=== PATIENT | female | born 1945 | race Caucasian/White ===

== ENCOUNTER 2016-07-25 09:56 | Outpatient (CLI) | payer MEDICARE | END 2016-07-25 09:57 | disposition home or self-care (01) | DX: R06.09 Other forms of dyspnea (principal) ==

== ENCOUNTER 2016-10-04 09:45 | Outpatient (CLI) | payer MEDICARE ==
[2016-10-04 17:50] LABS: BILIRUBIN,URINE NEGATIVE (NEGATIVE); PH,URINE 5.5 PH (5.0-7.5)
[2016-10-04 18:47] LABS: UR CULTURE IF IND NOT INDICATED
== END 2016-10-04 09:46 | disposition home or self-care (01) ==
LOC: LAB.R 09:45
PROVIDERS: ATTEND Physician Assistant Medical
DX: R35.0 Frequency of micturition (principal)
CPT/HCPCS: 81001; 87086

== ENCOUNTER 2017-03-19 13:48 | Outpatient (CLI) | payer MEDICARE ==
--- NOTE | 2017-03-19 18:38 | XRAY Report ---
TWO VIEW RIGHT RIBS: 03/19/2017 CLINICAL INDICATION: Fall, pain. Frontal and oblique views of the right ribs were obtained, with a marker at the site of maximal tende rness. There is no evidence of a displaced rib fracture. No pneumothorax is seen. IMPRESSION: NO EVIDENCE OF A DISPLACED RIGHT RIB FRACTURE. JOB #: [id number] EXT JOB #:[id number]
--- NOTE | 2017-03-19 18:40 | XRAY Report ---
THREE VIEW THORACIC SPINE: 03/19/2017 CLINICAL INDICATION: Right back pain, history of fall. AP, lateral, swimmer's views of the thoracic spine demonstrate moderate degenerative disk disease. T here is no evidence of compression fracture. No paraspinal hematoma is seen. IMPRESSION: DEGENERATIVE CHANGES. NO EVIDENCE OF FRACTURE. JOB #: [id number] EXT JOB #:[id number]
== END 2017-03-19 13:49 | disposition home or self-care (01) ==
LOC: DI 13:48
PROVIDERS: ATTEND Physician Assistant Medical
DX: R07.81 Pleurodynia (principal); M51.34 Other intervertebral disc degeneration, thoracic region
CPT/HCPCS: 72072

== ENCOUNTER 2017-07-15 09:10 | Outpatient (CLI) | payer MEDICARE ==
[2017-07-15 17:51] LABS: BASOPHILS # (AUTO) 0.1 10^3/uL (0.0-0.1); BASOPHILS % (AUTO) 0.6 %; EOSINOPHILS # (AUTO) 0.4 10^3/uL (0.0-0.7); HGB - HEMOGLOBIN 13.9 g/dL (12.0-16.0); LYMPHOCYTES # (AUTO) 2.6 10^3/uL (1.5-3.5); LYMPHOCYTES % (AUTO) 25.6 %; MEAN CORPUSCULAR HEMOGLOBIN 28.3 pg (27.0-31.0); MEAN CORPUSCULAR HGB CONC 32.2 g/dL (32.0-36.0); MEAN CORPUSCULAR VOLUME 87.7 fL (81.0-99.0); MEAN PLATELET VOLUME 9.7 fL (7.9-10.8); MONOCYTES # (AUTO) 0.6 10^3/uL (0.0-1.0); NEUTROPHILS # (AUTO) 6.4 10^3/uL (1.5-6.6); NEUTROPHILS % (AUTO) 63.8 %; PLT - PLATELET COUNT 235 10^3/uL (130-450); RED BLOOD COUNT 4.91 10^6/uL (4.20-5.40); RED CELL DISTRIBUTION WIDTH 14.8 % (12.0-15.0); WHITE BLOOD COUNT 10.1 x10^3/uL (4.8-10.8)
[2017-07-15 17:58] LABS: HB2 TOTAL 15.4 g/dL; HEMOGLOBIN A1C 0.8 g/dL; HEMOGLOBIN A1C % 6.9 % (4.6-6.2)
[2017-07-15 18:04] LABS: ALBUMIN 4.2 g/dL (3.2-5.5); ALBUMIN/GLOBULIN RATIO 1.2 (1.0-2.2); ALKALINE PHOSPHATASE 56 IU/L (42-121); ALT ALANINE AMINOTRANSFERASE 22 IU/L (10-60); AST ASPARTATE AMINOTRANSFERASE 25 IU/L (10-42); BILIRUBIN,TOTAL 0.4 mg/dL (0.2-1.0); BUN - BLOOD UREA NITROGEN 19 mg/dL (6-20); CALCIUM 9.1 mg/dL (8.5-10.3); CARBON DIOXIDE - CO2 29 mmol/L (21-32); CHLORIDE 98 mmol/L (101-111); CHOL/HDL RATIO 4.9 (<4.4); CHOLESTEROL 137 mg/dL; CREATININE 0.8 mg/dL (0.4-1.0); GFR - MDRD 71 (>89); GLUCOSE 136 mg/dL (70-100); HDL CHOLESTEROL 28 mg/dL; LDL CHOLESTEROL,CALCULATED 68 mg/dL; LDL/HDL RATIO 2.4 (<4.4); SODIUM 135 mmol/L (135-145); TOTAL PROTEIN 7.8 g/dL (6.7-8.2); VLDL CHOLESTEROL 41 mg/dL
== END 2017-07-15 09:11 | disposition home or self-care (01) ==
LOC: LAB.F 09:10
PROVIDERS: ATTEND Physician Assistant Medical
DX: I10 Essential (primary) hypertension (principal); E11.9 Type 2 diabetes mellitus without complications; I25.10 Atherosclerotic heart disease of native coronary artery without angina pectoris
CPT/HCPCS: 36415; 80053; 80061; 82043; 83036; 83721; 85025

== ENCOUNTER 2017-11-27 10:58 | Outpatient (CLI) | payer MEDICARE ==
[2017-11-27 18:03] LABS: HB2 TOTAL 14.6 g/dL; HEMOGLOBIN A1C 0.63 g/dL; HEMOGLOBIN A1C % 6.1 % (4.6-6.2)
== END 2017-11-27 10:59 | disposition home or self-care (01) ==
LOC: LAB.F 10:58
PROVIDERS: ATTEND Physician Assistant Medical
DX: E11.9 Type 2 diabetes mellitus without complications (principal)
CPT/HCPCS: 36415; 83036

== ENCOUNTER 2017-12-29 11:28 | Outpatient (CLI) | payer MEDICARE ==
[2017-12-29 17:44] LABS: BASOPHILS # (AUTO) 0.1 10^3/uL (0.0-0.1); BASOPHILS % (AUTO) 0.6 %; EOSINOPHILS # (AUTO) 0.3 10^3/uL (0.0-0.7); HGB - HEMOGLOBIN 14.4 g/dL (12.0-16.0); LYMPHOCYTES # (AUTO) 3.3 10^3/uL (1.5-3.5); LYMPHOCYTES % (AUTO) 33.5 %; MEAN CORPUSCULAR HEMOGLOBIN 30.6 pg (27.0-31.0); MEAN CORPUSCULAR HGB CONC 34.4 g/dL (32.0-36.0); MEAN CORPUSCULAR VOLUME 88.9 fL (81.0-99.0); MEAN PLATELET VOLUME 9.5 fL (7.9-10.8); MONOCYTES # (AUTO) 0.6 10^3/uL (0.0-1.0); MONOCYTES % (AUTO) 6.4 %; NEUTROPHILS # (AUTO) 5.6 10^3/uL (1.5-6.6); NEUTROPHILS % (AUTO) 56.5 %; PLT - PLATELET COUNT 217 10^3/uL (130-450); RED BLOOD COUNT 4.73 10^6/uL (4.20-5.40); RED CELL DISTRIBUTION WIDTH 14.8 % (12.0-15.0); WHITE BLOOD COUNT 9.9 x10^3/uL (4.8-10.8)
[2017-12-29 18:04] LABS: BILIRUBIN,URINE NEGATIVE (NEGATIVE); GLUCOSE, URINE (UA) NEGATIVE (NEGATIVE); KETONES,URINE (UA) NEGATIVE (NEGATIVE); LEUKOCYTE ESTERASE, URINE NEGATIVE (NEGATIVE); NITRITE,URINE NEGATIVE (NEGATIVE); OCCULT BLOOD,URINE NEGATIVE (NEGATIVE); PROTEIN,URINE NEGATIVE (NEGATIVE); UROBILINOGEN,URINE 0.2 (NORMAL) E.U./dL (NORMAL)
[2017-12-29 18:18] LABS: BACTERIA,URINE None Seen /HPF (None Seen); CLARITY,URINE CLEAR (CLEAR); RBC,URINE None Seen /HPF (0-5); SQUAMOUS EPITHELIAL CELL,UR RARE Squamous (<= Few)
[2017-12-29 19:01] LABS: ALBUMIN 4.1 g/dL (3.2-5.5); ALBUMIN/GLOBULIN RATIO 1.1 (1.0-2.2); BILIRUBIN,TOTAL 0.5 mg/dL (0.2-1.0); CALCIUM 9.6 mg/dL (8.5-10.3); CREATININE 0.8 mg/dL (0.4-1.0); TOTAL PROTEIN 7.9 g/dL (6.7-8.2)
== END 2017-12-29 11:29 | disposition home or self-care (01) ==
LOC: LAB.F 11:28
PROVIDERS: ATTEND Physician Assistant Medical
DX: Z01.812 Encounter for preprocedural laboratory examination (principal)
CPT/HCPCS: 36415; 80053; 81001; 85025; 87086; 87640

== ENCOUNTER 2018-01-10 06:59 | Emergency (ER) | payer MEDICARE ==
--- NOTE | 2018-01-10 07:52 | ED Physician Documentation ---
History of Present Illness - Stated complaint Stated Complaint: UNABLE TO URINATE/POST OP COMPL - Chief complaint Chief Complaint: Abd Pain - Additonal information Additional information: hx from pt 72 f s/p rectocele cystocele surgery at [facility] 4 days ago had yates removed yesterday still cannot urinate used a straight cath to relieve pressure overnight but needs yates replaced also constipated and having hard small stools despite miralax which concerns her because she is not supposed to strain no fever no [place] Review of Systems Constitutional: denies: Fever GI: reports: Abdominal Pain, Constipation. 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 Cardiovascular: Cardiac catheterization HEENT: Cataracts, Tonsil/Adenoidectomy - Present Medications Home Medications: Ambulatory Orders Medication Instructions Recorded Confirmed Docusate Sodium 100 mg PO BID 02/14/15 02/15/15 Febuxostat [Uloric] 40 mg PO DAILY 02/14/15 02/15/15 Insulin Lispro [Humalog] 15 unit SUBQ TIDACHS 02/14/15 02/15/15 Insulin NPH Human Isophane 24 unit DAILY 02/14/15 02/14/15 [Humulin N] Insulin NPH Human Isophane 74 unit QPM 02/14/15 02/14/15 [Humulin N] Methocarbamol [Robaxin-750] 1 tab PO DAILY PRN 02/14/15 02/15/15 Metoclopramide [Reglan] 10 mg PO BIDAC 02/14/15 02/15/15 Metoprolol Tartrate 25 mg DAILY 02/14/15 02/14/15 Moxide 02/14/15 02/14/15 Multivitamin [Multivitamins] 1 tab DAILY 02/14/15 02/14/15 Nortriptyline [Pamelor] 50 mg QPM 02/14/15 02/14/15 Pantoprazole [Protonix] 40 mg BID 02/14/15 02/14/15 Pravastatin Sodium 20 mg PO Q48H 02/14/15 02/15/15 Tumeric 500 mg PO DAILY 02/14/15 02/15/15 metFORMIN [Glucophage] 1,000 mg BID 02/14/15 02/14/15 oxyCODONE ER [OxyCONTIN] 20 mg BID 02/14/15 02/14/15 oxyCODONE [Roxicodone] 20 mg PO QID 02/14/15 02/15/15 Albuterol [Ventolin Hfa] 1 - 2 puffs INH Q4H PRN 02/15/15 02/15/15 Aspirin [Aspirin EC] 325 mg PO DAILY 02/15/15 02/15/15 Triamterene/Hydrochlorothiazid 1 tab PO DAILY 02/15/15 02/15/15 [Triamterene-Hctz 75-50 mg Tab] Peg 3350/Na Sulf,Bicarb,Cl/KCl 4,000 ml PO ONCE #1 bottle 01/10/18 [Golytely] - Allergies Allergies/Adverse Reactions: Allergies Allergy/AdvReac Type Severity Reaction Status Date / Time Cephalosporins Allergy Rash Verified 02/14/15 21:54 codeine Allergy Itching Verified 09/07/14 16:59 colchicine Allergy Rash Verified 02/14/15 21:54 hydromorphone Allergy Unknown Verified 01/10/18 07:12 Penicillins Allergy Anaphylaxis Verified 01/10/18 07:12 Sulfa (Sulfonamide Allergy Anaphylaxis Verified 01/10/18 07:12 Antibiotics) tuberculin,PPD,multi-puncture Allergy Unknown Verified 01/10/18 07:12 vancomycin Allergy Itching Verified 01/10/18 07:12 allopurinol AdvReac Rash Verified 01/10/18 07:12 aspartame AdvReac Respiratory Verified 01/10/18 07:12 broccoli AdvReac Unknown Verified 01/10/18 07:12 gabapentin AdvReac Unknown Verified 01/10/18 07:12 NSAIDS (Non-Steroidal AdvReac Unknown Verified 01/10/18 07:12 Anti-Inflamma adhesive (paper tape ok) Allergy Unknown Uncoded 02/14/15 21:56 - Social History Does the pt smoke?: No Smoking Status: Former smoker Does the pt drink ETOH?: No Does the pt have substance abuse?: No - Immunizations Immunizations are current?: Yes PD ED PE NORMAL - Vitals Vital signs reviewed: Yes - Cardiac Cardiac: RRR - Respiratory Respiratory: No respiratory distress - Abdomen Abdomen: Soft, Other (mod TTP across lower abd s peritoneal signs) - Neuro Neuro: Alert and oriented X 3 Results - Vitals Vitals: Vital Signs - 24 hr 01/10/18 01/10/18 07:07 08:47 Temperature 36.0 C L 36.2 C L Heart Rate 93 94 Respiratory 17 22 Rate Blood Pressure 138/63 H 124/88 H O2 Saturation 93 96 Oxygen O2 Source Room air - Labs Labs: Laboratory Tests 01/10/18 08:28 Urine Color ORANGE Urine Clarity CLEAR Urine pH 7.0 Ur Specific [place] 1.010 Urine Protein Not Reportable Urine Glucose (UA) Not Reportable Urine Ketones Not Reportable Urine Occult Blood Not Reportable Urine Nitrite 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 Urine Bilirubin Not Reportable Urine Urobilinogen Not Reportable Ur Leukocyte Esterase TRACE H Urine RBC 0-5 Urine WBC 11-25 H Urine WBC [place] PRESENT Ur Epithelial Cells FEW Transitional Ur Squamous Epith Cells FEW Squamous Urine Bacteria Rare Ur Microscopic Review INDICATED Urine Culture Comments Not Reportable PD MEDICAL DECISION MAKING - ED course ED course: yates placed pt already on antibiotic for UTI and does not want to wait for UA (see NN) UA + will call pt if cx indicates need - Sepsis Event Vital Signs: Vital Signs - 24 hr 01/10/18 01/10/18 07:07 08:47 Temperature 36.0 C L 36.2 C L Heart Rate 93 94 Respiratory 17 22 Rate Blood Pressure 138/63 H 124/88 H O2 Saturation 93 96 Oxygen O2 Source Room air Departure - Departure Disposition: 01 Home, Self Care Clinical Impression: Postoperative urinary retention Constipation Qualifiers: Constipation type: unspecified constipation type Qualified Code(s): K59.00 - Constipation, unspecified Condition: Good Instructions: ED Constipation, ED Catheter Care Yates Prescriptions: Peg 3350/Na Sulf,Bicarb,Cl/KCl [Golytely] 4,000 ml PO ONCE #1 bottle Comments: Please follow up with your surgeon this week as needed Discharge Date/Time: 01/10/18 08:48
[2018-01-10 08:46] LABS: LEUKOCYTE ESTERASE, URINE TRACE (NEGATIVE)
[2018-01-10 08:49] VITALS: BP 124/88
[2018-01-10 08:55] LABS: CLARITY,URINE CLEAR (CLEAR)
[2018-01-10 09:01] LABS: BACTERIA,URINE Rare /HPF (None Seen); EPITHELIAL CELLS,UR FEW Transitional /HPF (<= Few); RBC,URINE 0-5 /HPF (0-5); SQUAMOUS EPITHELIAL CELL,UR FEW Squamous (<= Few); WBC CLUMPS,URINE PRESENT
== END 2018-01-10 08:48 | disposition home or self-care (01) ==
LOC: ED 06:59
DX: N99.89 Other postprocedural complications and disorders of genitourinary system (principal); R33.9 Retention of urine, unspecified; K59.00 Constipation, unspecified; E11.9 Type 2 diabetes mellitus without complications; Z79.4 Long term (current) use of insulin; Z79.82 Long term (current) use of aspirin; Z87.891 Personal history of nicotine dependence
CPT/HCPCS: 51702; 81001; 81003; 87086; 99283

== ENCOUNTER 2018-01-15 20:45 | Emergency (ER) | payer MEDICARE ==
--- NOTE | 2018-01-15 21:49 | ED Physician Documentation ---
History of Present Illness - Stated complaint Stated Complaint: BLEEDING POST OP - Chief complaint Chief Complaint: General - History obtained from History obtained from: Patient - History of Present Illness Timing: How many hours ago (2) Pain level now: 2 (same post-operative discomfort she has had before tonights bleeding) Improved by: no ameliorating factors Worsened by: no exacerbating factors - Additonal information Additional information: A+P procedure 01/06/18 at [facility] (anterior/posterior: repair of rectocoele and cystocoele). saw PMD 01/09 for yates removal. she was rx doxycycline at that time: patient says she did not have signs/sx of UTI, but she has had many UTI in the past with a urospesis episode that resulted in long hospital stay, and thus rx doxycycline for prophylaxis against UTI x 3 day. Patient T+R from [facility] ED 01/10 for urinary retention, yates reinserted. has appointment with PMD to have yates removed tomorrow. 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 she sat on the toilet and had large amount of bright red vaginal bleeding. 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 Review of Systems Constitutional: reports: Reviewed and negative Cardiac: reports: Reviewed and negative Respiratory: reports: Reviewed and negative GI: reports: Reviewed and negative : reports: Vaginal bleeding, Other (today, developed urge to void despite no evidence of catheter malfunction). 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 Cardiovascular: Cardiac catheterization HEENT: Cataracts, Tonsil/Adenoidectomy - Present Medications Home Medications: Ambulatory Orders Medication Instructions Recorded Confirmed Docusate Sodium 100 mg PO BID 02/14/15 02/15/15 Febuxostat [Uloric] 40 mg PO DAILY 02/14/15 02/15/15 Insulin Lispro [Humalog] 15 unit SUBQ TIDACHS 02/14/15 02/15/15 Insulin NPH Human Isophane 24 unit DAILY 02/14/15 02/14/15 [Humulin N] Insulin NPH Human Isophane 74 unit QPM 02/14/15 02/14/15 [Humulin N] Methocarbamol [Robaxin-750] 1 tab PO DAILY PRN 02/14/15 02/15/15 Metoclopramide [Reglan] 10 mg PO BIDAC 02/14/15 02/15/15 Metoprolol Tartrate 25 mg DAILY 02/14/15 02/14/15 Moxide 02/14/15 02/14/15 Multivitamin [Multivitamins] 1 tab DAILY 02/14/15 02/14/15 Nortriptyline [Pamelor] 50 mg QPM 02/14/15 02/14/15 Pantoprazole [Protonix] 40 mg BID 02/14/15 02/14/15 Pravastatin Sodium 20 mg PO Q48H 02/14/15 02/15/15 Tumeric 500 mg PO DAILY 02/14/15 02/15/15 metFORMIN [Glucophage] 1,000 mg BID 02/14/15 02/14/15 oxyCODONE ER [OxyCONTIN] 20 mg BID 02/14/15 02/14/15 oxyCODONE [Roxicodone] 20 mg PO QID 02/14/15 02/15/15 Albuterol [Ventolin Hfa] 1 - 2 puffs INH Q4H PRN 02/15/15 02/15/15 Aspirin [Aspirin EC] 325 mg PO DAILY 02/15/15 02/15/15 Triamterene/Hydrochlorothiazid 1 tab PO DAILY 02/15/15 02/15/15 [Triamterene-Hctz 75-50 mg Tab] Peg 3350/Na Sulf,Bicarb,Cl/KCl 4,000 ml PO ONCE #1 bottle 01/10/18 [Golytely] Doxycycline Hyclate 100 mg PO BID #10 capsule 01/15/18 - Allergies Allergies/Adverse Reactions: Allergies Allergy/AdvReac Type Severity Reaction Status Date / Time Cephalosporins Allergy Rash Verified 01/15/18 20:58 codeine Allergy Itching Verified 01/15/18 20:58 colchicine Allergy Rash Verified 01/15/18 20:58 hydromorphone Allergy Unknown Verified 01/15/18 20:58 Penicillins Allergy Anaphylaxis Verified 01/15/18 20:58 Sulfa (Sulfonamide Allergy Anaphylaxis Verified 01/15/18 20:58 Antibiotics) tuberculin,PPD,multi-puncture Allergy Unknown Verified 01/15/18 20:58 vancomycin Allergy Itching Verified 01/15/18 20:58 allopurinol AdvReac Rash Verified 01/15/18 20:58 aspartame AdvReac Respiratory Verified 01/15/18 20:58 broccoli AdvReac Unknown Verified 01/15/18 20:58 gabapentin AdvReac Unknown Verified 01/15/18 20:58 NSAIDS (Non-Steroidal AdvReac Unknown Verified 01/15/18 20:58 Anti-Inflamma adhesive (paper tape ok) Allergy Unknown Uncoded 01/15/18 20:58 - Social History Does the pt smoke?: No Smoking Status: Never smoker Does the pt drink ETOH?: No Does the pt have substance abuse?: No - Immunizations Immunizations are current?: Yes - POLST Patient has POLST: No PD ED PE NORMAL - Vitals Vital signs reviewed: Yes - General General: Alert and oriented X 3, No acute distress, Well developed/nourished - HEENT HEENT: Moist mucous membranes - Cardiac Cardiac: No murmur - Respiratory Respiratory: No respiratory distress, Clear bilaterally - Abdomen Abdomen: Soft, Non tender - Derm Derm: Normal color, Warm and dry PD ED PE EXPANDED - Cardiac Cardiac: Murmur Present (2/6 JOSEPH cardiac base) - Female Female : Vaginal Bleeding, Tattoo Designer present, Other (no bleeding externally, a lthough there is a small clot of blood on pad. with separation of labia and visualization of posterior surgical site, there is small amt. dark blood (less than 5 cc), unclear source) Female visual: 1 - laceration (There is a 1cm length of unopposed edges of the surgical incision and a single subcuticular suture is seen; however at rest, the edges are opposed and, with traction, the edges separate no more than 0.75 cm. The depth is 3mm. Submucosal tissue seen but no deeper structures) Results - Vitals Vitals: Oxygen O2 Source Room air - Labs Labs: Laboratory Tests 01/15/18 01/15/18 01/15/18 21:20 21:20 21:20 WBC 9.5 RBC 4.13 L Hgb 12.3 Hct 36.6 L MCV 88.6 MCH 29.7 MCHC 33.6 RDW 14.0 Plt Count 286 MPV 8.6 Neut # (Auto) 5.3 Lymph # (Auto) 3.1 [place] # (Auto) 0.6 Eos # (Auto) 0.3 Baso # (Auto) 0.1 Absolute Nucleated RBC 0.02 Nucleated RBC % 0.2 PT 13.3 H INR 1.2 Sodium 139 Potassium 3.5 Chloride 98 L Carbon Dioxide 30 Anion Gap 11.0 BUN 22 H Creatinine 0.8 Estimated GFR (MDRD) 71 L Glucose 174 H Calcium 9.3 Total Bilirubin 0.4 AST 17 ALT 15 Alkaline Phosphatase 78 Total Protein 7.6 Albumin 3.7 Globulin 3.9 Albumin/Globulin Ratio 0.9 L Lipase 22 Urine Color Urine Clarity Urine pH Ur Specific [place] Urine Protein Urine Glucose (UA) Urine Ketones Urine Occult Blood Urine Nitrite Urine Bilirubin Urine Urobilinogen Ur Leukocyte Esterase Urine RBC Urine WBC Ur Squamous Epith Cells Urine Bacteria Ur Microscopic Review Blood Type Antibody Screen 01/15/18 01/15/18 21:58 22:15 WBC RBC Hgb Hct MCV MCH MCHC RDW Plt Count MPV Neut # (Auto) Lymph # (Auto) [place] # (Auto) Eos # (Auto) Baso # (Auto) Absolute Nucleated RBC Nucleated RBC % PT INR Sodium Potassium Chloride Carbon Dioxide Anion Gap BUN Creatinine Estimated GFR (MDRD) Glucose Calcium Total Bilirubin AST ALT Alkaline Phosphatase Total Protein Albumin Globulin Albumin/Globulin Ratio Lipase Urine Color ORANGE Urine Clarity SL. CLOUDY Urine pH 6.0 Ur Specific [place] 1.020 Urine Protein TRACE Urine Glucose (UA) NEGATIVE Urine Ketones NEGATIVE Urine Occult Blood LARGE H Urine Nitrite POSITIVE H Urine Bilirubin NEGATIVE Urine Urobilinogen 1 (NORMAL) Ur Leukocyte Esterase TRACE H Urine RBC TNTC H Urine WBC 4-5 Ur Squamous Epith Cells RARE Squamous Urine Bacteria Many H Ur Microscopic Review INDICATED Blood Type B POSITIVE Antibody Screen NEGATIVE PD MEDICAL DECISION MAKING - ED course Complexity details: reviewed results, re-evaluated patient, considered differential, d/w patient, d/w family ED course: D/W E-Pro doctor for Sanchez; she says this does not sound like a significant amount of bleeding nor unusual given the recent procedure. she recommends d/w Dr. Albert (operations business partner manager quality) at [facility]. D/W Dr. Albert. agrees that patient is stable and appropriate for d/c, return if worse, and she recommends patient contact the clinic at [facility] tomorrow 8:30 AM to arrange for wound check tomorrow. I relayed this information to patient, and she is comfortable with this plan. Patient requested removal of yates catheter prior to discharge, as she is to have it out tomorrow by PMD anyway. This was done in ED. urine sample suggests UTI; considering this, her new symptom of urge to urinate despite no evidence of obstruction to flow in the yates, and h/o frequent UTI and severe urosepsis, will tx. with abx. Unfortunately, she states a number of allergies. She was recently on doxycycline and thus I will out her back on this abx. - Sepsis Event Vital Signs: Oxygen O2 Source Room air Departure - Departure Disposition: 01 Home, Self Care Clinical Impression: Urinary tract infection, Postoperative bleeding from incision Condition: Good Instructions: ED Wound Check Post Op Bleeding, ED UTI Cystitis Female Follow-Up: La Nena Hensley PA-C [Primary Care Provider] - Prescriptions: Doxycycline Hyclate 100 mg PO BID #10 capsule Comments: Contact the surgeon's office (Dr. Costa) tomorrow at 8:30 AM to arrange for immediate follow-up. If possible, it would be ideal if arrangements can be made for a wound check tomorrow in their office; this will obviously depend on scheduling availability. If your bleeding reoccurs to any significant extent (if it is enough to concern you), please return to the emergency department. Discharge Date/Time: 01/16/18 00:01
[2018-01-15 21:52] LABS: BASOPHILS # (AUTO) 0.1 10^3/uL (0.0-0.1); BASOPHILS % (AUTO) 0.8 %; EOSINOPHILS # (AUTO) 0.3 10^3/uL (0.0-0.7); EOSINOPHILS % (AUTO) 3.5 %; HGB - HEMOGLOBIN 12.3 g/dL (12.0-16.0); LYMPHOCYTES # (AUTO) 3.1 10^3/uL (1.5-3.5); LYMPHOCYTES % (AUTO) 33.1 %; MEAN CORPUSCULAR HEMOGLOBIN 29.7 pg (27.0-31.0); MEAN CORPUSCULAR HGB CONC 33.6 g/dL (32.0-36.0); MEAN CORPUSCULAR VOLUME 88.6 fL (81.0-99.0); MEAN PLATELET VOLUME 8.6 fL (7.9-10.8); MONOCYTES # (AUTO) 0.6 10^3/uL (0.0-1.0); MONOCYTES % (AUTO) 6.8 %; NEUTROPHILS # (AUTO) 5.3 10^3/uL (1.5-6.6); NEUTROPHILS % (AUTO) 55.8 %; PLT - PLATELET COUNT 286 10^3/uL (130-450); RED BLOOD COUNT 4.13 10^6/uL (4.20-5.40); WHITE BLOOD COUNT 9.5 x10^3/uL (4.8-10.8)
[2018-01-15 21:59] LABS: ALBUMIN 3.7 g/dL (3.2-5.5); ALBUMIN/GLOBULIN RATIO 0.9 (1.0-2.2); BILIRUBIN,TOTAL 0.4 mg/dL (0.2-1.0); CALCIUM 9.3 mg/dL (8.5-10.3); CREATININE 0.8 mg/dL (0.4-1.0); TOTAL PROTEIN 7.6 g/dL (6.7-8.2)
[2018-01-15 22:16] LABS: INR 1.2 (0.8-1.2); PT - PROTHROMBIN TIME 13.3 secs (9.9-12.6)
[2018-01-15 22:46] LABS: BILIRUBIN,URINE NEGATIVE (NEGATIVE); GLUCOSE, URINE (UA) NEGATIVE (NEGATIVE); KETONES,URINE (UA) NEGATIVE (NEGATIVE); LEUKOCYTE ESTERASE, URINE TRACE (NEGATIVE); NITRITE,URINE POSITIVE (NEGATIVE); OCCULT BLOOD,URINE LARGE (NEGATIVE); PROTEIN,URINE TRACE mg/dL (NEGATIVE); UROBILINOGEN,URINE 1 (NORMAL) E.U./dL (NORMAL)
[2018-01-15 22:49] LABS: CLARITY,URINE SL. CLOUDY (CLEAR)
[2018-01-15 22:53] LABS: BACTERIA,URINE Many /HPF (None Seen); RBC,URINE TNTC /HPF (0-5); SQUAMOUS EPITHELIAL CELL,UR RARE Squamous (<= Few)
[2018-01-15] MEDS ORDERED: DOXYCYCLINE 100 MG TABLET PO STA (23:19)
[2018-01-16 00:02] VITALS: BP 121/68
== END 2018-01-16 00:01 | disposition home or self-care (01) ==
LOC: ED 20:45
DX: N39.0 Urinary tract infection, site not specified (principal); N99.820 Postprocedural hemorrhage of a genitourinary system organ or structure following a genitourinary system procedure; E11.9 Type 2 diabetes mellitus without complications; Z79.4 Long term (current) use of insulin
CPT/HCPCS: 36415; 80053; 81001; 83690; 85025; 85610; 86850; 86900; 86901; 99283; 99284; A9270; 81003

== ENCOUNTER 2018-02-20 14:45 | Outpatient (CLI) | payer MEDICARE ==
--- NOTE | 2018-02-23 09:58 | Mammography Report ---
Reason: SCREENING Procedure Date: 02/20/2018 Accession Number: [id number] / [id number] Procedure: TE - Screening Mammo w/Arnol CPT Code: FULL RESULT: EXAM: Screening Mammo w/Arnol DATE: 02/20/2018 3:23 PM CLINICAL HISTORY: 72-year-old female for screening mammogram. TECHNIQUE: Bilateral CC and MLO views were obtained. COMPARISON: 02/21/2014, 03/08/2009. FINDINGS: The breasts demonstrate scattered fibroglandular densities bilaterally. Coarse typically benign calcifications are again seen bilaterally. A focal asymmetry with increasing calcifications in the right breast at the 11:00 position approximately 10 cm deep to the nipple requires additional spot magnification views for clarification and possibly ultrasound examination. No left breast suspicious masses, clustered microcalcifications, or regions of architectural distortion are identified. IMPRESSION: Incomplete examination RECOMMENDATION: Additional evaluation as above including spot magnification views of the posterior right upper outer breast and possibly ultrasound. BIRADS CATEGORY 0: Incomplete examination STANDARD QUALIFYING STATEMENTS: 1. This examination was not reviewed with the aid of Computer-Aided Detection (CAD). 2. A negative or benign imaging report should not delay biopsy if clinically suspicious findings are present. Consider surgical consultation if warrented. More than 5% of cancers are not identified by imaging. 3. Dense breasts may obscure an underlying neoplasm. 4. This examination was reviewed with the aid of 3D breast imaging (tomosynthesis).
== END 2018-02-20 14:46 | disposition home or self-care (01) ==
LOC: DI 14:45
DX: Z12.31 Encounter for screening mammogram for malignant neoplasm of breast (principal)
CPT/HCPCS: 77063; 77067

== ENCOUNTER 2018-03-02 13:03 | Outpatient (CLI) | payer MEDICARE ==
--- NOTE | 2018-03-02 15:09 | Mammography Report ---
Reason: ABN MAMMO - RT SPEC VIEWS Procedure Date: 03/02/2018 Accession Number: [id number] / [id number] Procedure: TE - Diag Special Views Dig RT CPT Code: FULL RESULT: EXAM: Diag Special Views Dig RT DATE: 03/02/2018 2:17 PM CLINICAL HISTORY: Recall from screening exam 02/20/2018 for possible calcifications and new asymmetries seen upper outer right breast. TECHNIQUE: Right CC, MLO and 90 degree spot compression views. 90 degree whole breast 3-D mammogram. COMPARISON: 02/20/2018 through 03/08/2009 FINDINGS: The breasts demonstrate scattered fibroglandular densities bilaterally. There are no suspicious calcifications in the right breast. On MLO and 90 degree projections, there is persistence of one view asymmetry in the upper outer breast roughly 11 cm from nipple measuring 10 mm. It represents an imaging change from earlier comparisons but most likely represents normal tissue based on today's mammogram. Unfortunately, patient was unable to stay for recommended targeted ultrasound due to scheduling conflicts. Patient was rescheduled for 03/04/2018. IMPRESSION: Incomplete examination RECOMMENDATION: Targeted right breast ultrasound to complete diagnostic work up; this is scheduled for 03/04/2018. BI-RADS CATEGORY 0: Incomplete examination STANDARD QUALIFYING STATEMENTS: 1. This examination was not reviewed with the aid of Computer-Aided Detection (CAD). 2. A negative or benign imaging report should not preclude biopsy if clinically suspicious findings are present. 3. Dense breasts may obscure an underlying neoplasm. 4. This examination was reviewed with the aid of 3D breast imaging (tomosynthesis).
== END 2018-03-02 13:04 | disposition home or self-care (01) ==
LOC: DI 13:03
PROVIDERS: ATTEND Physician Assistant Medical
DX: R92.8 Other abnormal and inconclusive findings on diagnostic imaging of breast (principal)

== ENCOUNTER 2018-03-04 10:12 | Outpatient (CLI) | payer MEDICARE ==
--- NOTE | 2018-03-04 13:04 | Ultrasound Report ---
Reason: ABN MAMMO RT Procedure Date: 03/04/2018 Accession Number: [id number] / [id number] Procedure: US - Breast Unilateral Limited CPT Code: FULL RESULT: EXAM: Breast Unilateral Limited DATE: 03/04/2018 11:35 AM CLINICAL HISTORY: New asymmetry upper outer right breast mostly resolved on diagnostic mammography however patient was unable to complete ultrasound yesterday and returns today. TECHNIQUE: Real-time targeted ultrasound is performed by both the technologist and the radiologist. COMPARISON: Mammograms 03/02/2018 through 03/08/2009 FINDINGS: In the right breast at the 9:30 to 10:00 radian 11 cm from nipple, there is an oval, circumscribed, parallel orientation hypoechoic mass with low level internal echoes, absent flow and mild enhanced through-transmission. This may correlate to the asymmetry recalled from screening exam. No other findings noted in the lateral or upper outer right breast. IMPRESSION: 5 mm oval mass with benign features strongly favors complicated cyst. Probably benign. BI-RADS Category 3. Follow-up diagnostic mammogram and ultrasound 6 months is recommended to ensure expected stability. Exam results were discussed with the patient at the time of exam.
== END 2018-03-04 10:13 | disposition home or self-care (01) ==
LOC: DI 10:12
PROVIDERS: ATTEND Physician Assistant Medical
DX: N63.10 Unspecified lump in the right breast, unspecified quadrant (principal); R92.8 Other abnormal and inconclusive findings on diagnostic imaging of breast
CPT/HCPCS: 76642

== ENCOUNTER 2018-06-03 08:58 | Outpatient (CLI) | payer MEDICARE ==
--- NOTE | 2018-06-03 13:27 | MRI Report ---
Reason: BACK PAIN,LUMBAR WITH RADICULOPATHY,BACK PAIN,THOR Procedure Date: 06/03/2018 Accession Number: [id number] / [id number] Procedure: MRI - Lumbar Spine W/O CPT Code: FULL RESULT: EXAM: MRI LUMBAR SPINE WITHOUT CONTRAST EXAM DATE: 06/03/2018 11:59 AM. CLINICAL HISTORY: 73-year-old with history of prior lumbar surgery presenting with back pain and lower extremity radiculopathy. Evaluate lumbar pathology. COMPARISON: LUMBAR SPINE W/O 07/03/2015 10:48 AM. TECHNIQUE: Multiplanar, multisequence T1-weighted and fluid-sensitive sequences of the lumbar spine from T12 to S1 without contrast. Other: None. FINDINGS: Postsurgical: Postsurgical changes of L3 through S1 posterior spinal instrumented fusion, L3-L4 diskectomy with interbody fusion graft placement, and L3-L4 through L5-S1 laminectomy. There is associated metallic dephasing artifact that technically limits evaluation of surrounding soft tissues. Spinal Canal: The conus terminates at L2-L3 which is low lying but within normal limits. The conus medullaris and cauda equina are unremarkable. Alignment: Straightening of the normal lumbar lordosis. There is 2 mm of grade 1 anterolisthesis of L3 on L4 and 4-5 mm of grade 1 anterolisthesis of L4 on L5. Bone Marrow: There is partial lumbarization of the S1 vertebral body. No acute fracture. There are T1/T2 hyperintense lesions seen within the T10, L1, and S1 vertebral bodies that may represent hemangiomas. There is Modic type I changes seen throughout the lumbar spine with superimposed Modic type II changes seen at L4-L5. These findings may be degenerative in nature. There is fusion of the L5-S1 vertebral bodies. Disk Levels/Facets: T11-T12: Mild endplate degenerative change with mild loss of disk height and disk desiccation. Minimal bilateral arthritic facet disease. No spinal canal stenosis. No neural foraminal narrowing. T12-L1: Mild endplate degenerative change with mild loss of disk height and disk desiccation. Minimal bilateral facet disease. No spinal canal stenosis. No neural foraminal narrowing. L1-L2: Mild endplate degenerative change with mild loss of disk height and disk desiccation. Small posterior disk bulge with superimposed tiny bilateral neural foraminal disk protrusions. Bilateral arthritic facet disease. No significant spinal canal stenosis. No significant neural foraminal narrowing. L2-L3: Mild to moderate endplate generative change, Schmorl's node formation, mild loss of disk, and disk desiccation. Slight posterior disk bulge with superimposed tiny bilateral neural foraminal disk protrusions. Bilateral arthritic facet disease. Minimal spinal canal stenosis. Minimal bilateral neural foraminal narrowing. L3-L4: Changes of diskectomy. Slight uncovering of the endplate. Decompression of the thecal sac. Small central to right paracentral disk bulge. Bilateral arthritic facet disease. Effacement of the lateral recesses with potential contact of the traversing right L4 nerve root. Mild to moderate right and minimal left neural foraminal narrowing. L4-L5: Mild endplate degenerative change with mild loss of disk height and disk desiccation. Decompression of the thecal sac. Bilateral arthritic facet disease. No significant spinal canal stenosis. Mild to moderate right and minimal to mild left neural foraminal narrowing. L5-S1: Fusion of the endplates. Bilateral arthritic facet disease. No spinal canal stenosis. Mild to moderate right neural foraminal narrowing. Musculature: Severe fatty atrophy of the multifidus muscles beginning at L3 and extending to the sacrum. There is edema seen within the multifidus muscles at these levels. This may be postsurgical. There is edema within the subcutaneous tissues of the low back. Other: The partially visualized retroperitoneum is unremarkable. IMPRESSION: 1. Postsurgical changes of L3-S1 posterior spinal instrumented fusion, L3-L4 diskectomy with interbody fusion graft placement, and L3-L4 through L5-S1 laminectomy. There is associated metallic dephasing artifact that technically limits evaluation of surrounding soft tissues. 2. Straightening of the normal lumbar lordosis. There is 2 mm of grade 1 anterolisthesis of L3 on L4 and 45 mm grade 1 anterolisthesis of L4 on L5. 3. Multilevel degenerative changes. L2-L3: Minimal spinal canal stenosis. Minimal bilateral lower from monitoring. L3-L4: Effacement of the lateral recesses with potential contact of the traversing right L4 nerve root. Mild to moderate right and minimal left neural foraminal narrowing. L4-L5: No significant canal stenosis. Mild to moderate right and minimal to mild left neural foraminal narrowing. L5-S1: No spinal canal stenosis. Mild to moderate right neural foraminal narrowing. Comment: The following findings are so common in adults without low back pain that while we report their presence, they must be interpreted with caution and in the context of the clinical situation. (Reference Tristak et al, Spine 2001) Prevalence of findings in patients without low back pain: Disk degeneration (any evidence): 92% Disk desiccation/T2 signal loss: 83% Disk height loss: 56% Disk bulge: 64% Disk protrusion: 32% Annular tear/high intensity zone: 38% RADIA
== END 2018-06-03 08:59 | disposition home or self-care (01) ==
LOC: DI 08:58
PROVIDERS: ATTEND Physician Assistant Medical
DX: M51.16 Intervertebral disc disorders with radiculopathy, lumbar region (principal); M48.061 Spinal stenosis, lumbar region without neurogenic claudication; Z98.1 Arthrodesis status; M54.6 Pain in thoracic spine
CPT/HCPCS: 72148

== ENCOUNTER 2018-09-02 12:42 | Outpatient (CLI) | payer MEDICARE | END 2018-09-02 12:43 | disposition home or self-care (01) | LOC: SC 12:42 | PROVIDERS: ATTEND Nurse Practitioner Family | DX: G47.33 Obstructive sleep apnea (adult) (pediatric) (principal) | CPT/HCPCS: 99204; G0463; 99212 ==

== ENCOUNTER 2018-09-10 10:00 | Outpatient (CLI) | payer MEDICARE ==
--- NOTE | 2018-09-10 14:00 | Ultrasound Report ---
Reason: ABNORMAL MAMMO RT BREAST MASS Procedure Date: 09/10/2018 Accession Number: [id number] / [id number] Procedure: US - Breast Unilateral Limited CPT Code: FULL RESULT: EXAM: Diagnostic Dig RT, Breast Unilateral Limited DATE: 09/10/2018 11:07 AM CLINICAL HISTORY: Diagnostic examination. Follow-up of a right breast oval well-circumscribed mass. TECHNIQUE: (R) - Right right CC, spot CC, MLO, ML and spot ML views are obtained. Focused right breast ultrasound is performed. COMPARISON: 03/02/2018 through 03/08/2009. PARENCHYMAL PATTERN: FINDINGS: The previously seen focal asymmetry in the right breast 11 cm from the nipple measuring 10 mm persists with no suspicious interval change and no calcifications identified. Focused right breast ultrasound demonstrates a stable oval circumscribed wider than tall hypoechoic mass corresponding to the mammographic finding. Stability of probably benign finding. There are no suspicious masses, calcifications, or areas of distortion. IMPRESSION: Probably Benign. BI-RADS category 3. RECOMMENDATION: (6MOS) - Recommend 6 month follow-up exam. 6 month follow-up diagnostic mammogram with ultrasound of the right breast at the time of annual screening mammography of the left breast. BI-RADS CATEGORY: (3) - Probably Benign. STANDARD QUALIFYING STATEMENTS: 1. This examination was not reviewed with the aid of Computer-Aided Detection (CAD). 2. A negative or benign imaging report should not preclude biopsy if clinically suspicious findings are present. 3. Dense breasts may obscure an underlying neoplasm. 4. This examination was reviewed with the aid of 3D breast imaging (tomosynthesis).
== END 2018-09-10 10:01 | disposition home or self-care (01) ==
LOC: DI 10:00
PROVIDERS: ATTEND Physician Assistant Medical
DX: R92.8 Other abnormal and inconclusive findings on diagnostic imaging of breast (principal)
CPT/HCPCS: 76642

== ENCOUNTER 2018-11-03 09:19 | Outpatient (CLI) | payer MEDICARE ==
[2018-11-03 09:45] LABS: CREATININE 0.7 mg/dL (0.4-1.0)
[2018-11-03] MEDS ORDERED: IOVERSOL 320 50 ML VIAL ONE (09:49)
[2018-11-03] MEDS ORDERED: IOVERSOL 320 100 ML VIAL IVP ONE ×2 (09:49→12:57)
[2018-11-03] MEDS ORDERED: IOVERSOL 320 50 ML VIAL PO ONE (12:57)
--- NOTE | 2018-11-03 14:39 | CT Report ---
Reason: PAIN IN JOINT INVOLVING PELVIC REGION AND THIGH,SA Procedure Date: 11/03/2018 Accession Number: [id number] / [id number] Procedure: CT - Abdomen/Pelvis W CPT Code: FULL RESULT: EXAM: CT ABDOMEN AND PELVIS EXAM DATE: 11/03/2018 11:12 AM. CLINICAL HISTORY: Pain in joint involving pelvic region and thigh, SA. COMPARISONS: ABDOMEN/PELVIS W/ 09/07/2014 6:29 PM. TECHNIQUE: Routine helical CT imaging was performed through the abdomen and pelvis. IV contrast: OPTI 320 100 mL. Enteric contrast: No. Reconstructions: Coronal and sagittal. In accordance with CT protocol optimization, one or more of the following dose reduction techniques were utilized for this exam: automated exposure control, adjustment of mA and/or KV based on patient size, or use of iterative reconstructive technique. FINDINGS: Lung Bases: Unremarkable. Liver: A 1.3 cm segment 7 somewhat geographic hypodense lesion appears similar to 2015. Gallbladder/Bile Ducts: There is minimal intrahepatic biliary ductal dilation and a prominent extrahepatic bile duct which measures up to 1.2 cm, nonspecific. Gallbladder is distended, no cholecystitis. Spleen: Normal. Pancreas: Partially atrophic. Adrenal Glands: Normal. Kidneys: Normal. No masses or hydronephrosis. Peritoneal Cavity/Bowel: There is no bowel obstruction. There is no free fluid or free air. Within the intraperitoneal and retroperitoneal abdomen there is no lymphadenopathy. There is colonic diverticulosis without diverticulitis, mostly in the sigmoid colon. Pelvic Organs: There are prominent bilateral inguinal lymph nodes. While these do not meet strict size criteria and short axis, several of the nodes appear to demonstrate loss of their architecture including loss of the fatty hilum, for example a left inguinal node on image 74 series 3 and image 16 series 5 no longer demonstrates a smooth margin and has no fatty hilum, 0.8 cm in short axis. 2.1 x 1.4 cm right pelvic nodule as seen on image 59 series 3 and image 29 series 5 demonstrates draining vein and suggestion of round ligament, felt to be the right ovary. Similarly, on image 28 series 5 and image 61 series 3 structure with same features felt to represent the left ovary. Uterus is not visualized, presumed surgically absent. No definite intrapelvic lymphadenopathy. Vasculature: Atherosclerosis without abdominal aortic aneurysm. Bones: Within the lateral superior pubic ramus and reaching into the acetabular roof is a soft tissue mass breaking through the cortex with adjacent osseous destruction which measures 4.4 x 4.1 cm, image 68 series 3 and image 24 series 5. Extension into and involvement of the acetabulum are best seen coronally on image 28 series 5. There is a nonunited fracture of the inferior left pubic ramus, see image 77 series 3. Expected appearance of lumbar spinal hardware with fusion and posterior decompression in the lower lumbar levels. Other: None. IMPRESSION: Aggressive-appearing osseous mass in the left superior pubic ramus with involvement of the left acetabulum and fracture of the left inferior pubic ramus, presumably due to altered load-bearing through the left pelvis. RADIA The call report notification system was initiated by Dr. Remi Garay at 02:20 PM on 11/03/2018. ADDENDUM: 11/03/18 15:14 The above call report findings were discussed with the advanced practice registered nurse Chelsey on behalf of Elvis Hidalgo who is currently with a patient in an invasive procedure by Dr. Remi Garay at 03:14 PM on 11/03/2018.
== END 2018-11-03 09:20 | disposition home or self-care (01) ==
LOC: DI 09:19
PROVIDERS: ATTEND Physical Medicine & Rehabilitation
DX: S32.592K Other specified fracture of left pubis, subsequent encounter for fracture with nonunion (principal); M89.9 Disorder of bone, unspecified; Z98.1 Arthrodesis status
CPT/HCPCS: 36415; 74177; 82565; Q9967

== ENCOUNTER 2019-01-01 10:30 | Outpatient (CLI) | payer MEDICARE ==
[2019-01-01 17:04] LABS: BASOPHILS % (AUTO) 0.9 %; EOSINOPHILS # (AUTO) 0.2 10^3/uL (0.0-0.7); EOSINOPHILS % (AUTO) 4.2 %; HGB - HEMOGLOBIN 12.3 g/dL (12.0-16.0); LYMPHOCYTES # (AUTO) 1.1 10^3/uL (1.5-3.5); LYMPHOCYTES % (AUTO) 25.9 %; MEAN CORPUSCULAR HEMOGLOBIN 29.9 pg (27.0-31.0); MEAN CORPUSCULAR HGB CONC 32.4 g/dL (32.0-36.0); MEAN CORPUSCULAR VOLUME 92.5 fL (81.0-99.0); MEAN PLATELET VOLUME 11.5 fL (7.9-10.8); MONOCYTES # (AUTO) 0.1 10^3/uL (0.0-1.0); MONOCYTES % (AUTO) 2.1 %; NEUTROPHILS # (AUTO) 2.8 10^3/uL (1.5-6.6); PLT - PLATELET COUNT 177 10^3/uL (130-450); RED BLOOD COUNT 4.11 10^6/uL (4.20-5.40); RED CELL DISTRIBUTION WIDTH 12.2 % (12.0-15.0); WHITE BLOOD COUNT 4.3 x10^3/uL (4.8-10.8)
[2019-01-01 17:53] LABS: DIFFERENTIAL COMMENT MANUAL=AUTO DIFF; PLATELET ESTIMATE, MANUAL NORMAL (130-450,000) (NORMAL); PLATELET MORPHOLOGY NORMAL APPEARANCE (NORMAL); RBC MORPHOLOGY (MULTIPLE) NORMAL APPEARANCE (NORMAL)
== END 2019-01-01 10:31 | disposition home or self-care (01) ==
LOC: LAB.S 10:30
PROVIDERS: ATTEND Physician Assistant Medical
DX: R50.9 Fever, unspecified (principal); J02.9 Acute pharyngitis, unspecified
CPT/HCPCS: 36415; 84443; 85025

== ENCOUNTER 2019-01-11 10:42 | Outpatient (CLI) | payer MEDICARE ==
[2019-01-11 18:42] LABS: BASOPHILS # (AUTO) 0.1 10^3/uL (0.0-0.1); BASOPHILS % (AUTO) 1.4 %; EOSINOPHILS # (AUTO) 0.1 10^3/uL (0.0-0.7); EOSINOPHILS % (AUTO) 2.6 %; HGB - HEMOGLOBIN 12.2 g/dL (12.0-16.0); LYMPHOCYTES # (AUTO) 1.6 10^3/uL (1.5-3.5); LYMPHOCYTES % (AUTO) 45.2 %; MEAN CORPUSCULAR HEMOGLOBIN 29.3 pg (27.0-31.0); MEAN CORPUSCULAR HGB CONC 31.7 g/dL (32.0-36.0); MEAN CORPUSCULAR VOLUME 92.5 fL (81.0-99.0); MEAN PLATELET VOLUME 11.2 fL (7.9-10.8); MONOCYTES # (AUTO) 0.6 10^3/uL (0.0-1.0); NEUTROPHILS # (AUTO) 1.1 10^3/uL (1.5-6.6); NEUTROPHILS % (AUTO) 32.4 %; PLT - PLATELET COUNT 294 10^3/uL (130-450); RED BLOOD COUNT 4.16 10^6/uL (4.20-5.40); RED CELL DISTRIBUTION WIDTH 13.4 % (12.0-15.0); WHITE BLOOD COUNT 3.5 x10^3/uL (4.8-10.8)
== END 2019-01-11 10:43 | disposition home or self-care (01) ==
LOC: LAB.S 10:42
PROVIDERS: ATTEND Internal Medicine
DX: R19.00 Intra-abdominal and pelvic swelling, mass and lump, unspecified site (principal)
CPT/HCPCS: 36415; 85025

== ENCOUNTER 2019-02-02 10:31 | Outpatient (CLI) | payer MEDICARE ==
[2019-02-02 17:48] LABS: BASOPHILS % (AUTO) 1.1 %; EOSINOPHILS # (AUTO) 0.1 10^3/uL (0.0-0.7); EOSINOPHILS % (AUTO) 3.1 %; HGB - HEMOGLOBIN 11.8 g/dL (12.0-16.0); LYMPHOCYTES % (AUTO) 28.2 %; MEAN CORPUSCULAR HEMOGLOBIN 28.9 pg (27.0-31.0); MEAN CORPUSCULAR HGB CONC 31.1 g/dL (32.0-36.0); MEAN CORPUSCULAR VOLUME 92.9 fL (81.0-99.0); MEAN PLATELET VOLUME 10.6 fL (7.9-10.8); MONOCYTES # (AUTO) 0.5 10^3/uL (0.0-1.0); NEUTROPHILS # (AUTO) 1.8 10^3/uL (1.5-6.6); NEUTROPHILS % (AUTO) 52.2 %; PLT - PLATELET COUNT 268 10^3/uL (130-450); RED BLOOD COUNT 4.09 10^6/uL (4.20-5.40); RED CELL DISTRIBUTION WIDTH 14.6 % (12.0-15.0); WHITE BLOOD COUNT 3.5 x10^3/uL (4.8-10.8)
[2019-02-02 18:13] LABS: HB2 TOTAL 13.2 g/dL; HEMOGLOBIN A1C 0.66 g/dL; HEMOGLOBIN A1C % 6.7 % (4.6-6.2)
== END 2019-02-02 10:32 | disposition home or self-care (01) ==
LOC: LAB.S 10:31
PROVIDERS: ATTEND Internal Medicine
DX: E11.9 Type 2 diabetes mellitus without complications (principal); Z79.4 Long term (current) use of insulin; C83.33 Diffuse large B-cell lymphoma, intra-abdominal lymph nodes; R19.00 Intra-abdominal and pelvic swelling, mass and lump, unspecified site
CPT/HCPCS: 36415; 83036; 85025

== ENCOUNTER 2019-02-10 19:40 | Emergency (ER) | payer MEDICARE ==
[2019-02-10 20:16] LABS: BILIRUBIN,URINE NEGATIVE (NEGATIVE); GLUCOSE, URINE (UA) NEGATIVE (NEGATIVE); KETONES,URINE (UA) NEGATIVE (NEGATIVE); LEUKOCYTE ESTERASE, URINE NEGATIVE (NEGATIVE); NITRITE,URINE NEGATIVE (NEGATIVE); OCCULT BLOOD,URINE NEGATIVE (NEGATIVE); PROTEIN,URINE NEGATIVE (NEGATIVE); UROBILINOGEN,URINE 0.2 (NORMAL) E.U./dL (NORMAL)
[2019-02-10 20:17] LABS: CLARITY,URINE CLEAR (CLEAR)
[2019-02-10] MEDS ORDERED: SODIUM CHLORIDE 0.9% 1,000 ML IV ONE (20:37)
--- NOTE | 2019-02-10 20:39 | ED Physician Documentation ---
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 Also taking high-dose narcotics. She has not had a bowel movement in a week despite trying numerous things, DOS, milk of magnesia, suppository, MiraLAX, prune juice. She feels uncomfortable especially in the back and on the right side. She has nausea but no vomiting. No fevers) Review of Systems Ten Systems: 10 systems reviewed and negative Constitutional: reports: Reviewed and negative Cardiac: reports: Reviewed and negative Respiratory: reports: Reviewed and negative GI: reports: Abdominal Pain, Nausea, Constipation. 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 Cardiovascular: Cardiac catheterization HEENT: Cataracts, Tonsil/Adenoidectomy - Present Medications Home Medications: Ambulatory Orders Medication Instructions Recorded Confirmed Docusate Sodium 100 mg PO BID 02/14/15 02/15/15 Febuxostat [Uloric] 40 mg PO DAILY 02/14/15 02/15/15 Insulin Lispro [Humalog] 15 unit SUBQ TIDACHS 02/14/15 02/15/15 Insulin NPH Human Isophane 24 unit DAILY 02/14/15 02/14/15 [Humulin N] Insulin NPH Human Isophane 74 unit QPM 02/14/15 02/14/15 [Humulin N] Methocarbamol [Robaxin-750] 1 tab PO DAILY PRN 02/14/15 02/15/15 Metoclopramide [Reglan] 10 mg PO BIDAC 02/14/15 02/15/15 Metoprolol Tartrate 25 mg DAILY 02/14/15 02/14/15 Moxide 02/14/15 02/14/15 Multivitamin [Multivitamins] 1 tab DAILY 02/14/15 02/14/15 Nortriptyline [Pamelor] 50 mg QPM 02/14/15 02/14/15 Pantoprazole [Protonix] 40 mg BID 02/14/15 02/14/15 Pravastatin Sodium 20 mg PO Q48H 02/14/15 02/15/15 Tumeric 500 mg PO DAILY 02/14/15 02/15/15 metFORMIN [Glucophage] 1,000 mg BID 02/14/15 02/14/15 oxyCODONE ER [OxyCONTIN] 20 mg BID 02/14/15 02/14/15 oxyCODONE [Roxicodone] 20 mg PO QID 02/14/15 02/15/15 Albuterol [Ventolin Hfa] 1 - 2 puffs INH Q4H PRN 02/15/15 02/15/15 Aspirin [Aspirin EC] 325 mg PO DAILY 02/15/15 02/15/15 Triamterene/Hydrochlorothiazid 1 tab PO DAILY 02/15/15 02/15/15 [Triamterene-Hctz 75-50 mg Tab] Peg 3350/Na Sulf,Bicarb,Cl/KCl 4,000 ml PO ONCE #1 bottle 01/10/18 [Golytely] Doxycycline Hyclate 100 mg PO BID #10 capsule 01/15/18 Lactulose [Generlac] 10 gm PO Q6H PRN #300 ml 02/10/19 Metoclopramide [Reglan] 10 mg PO Q6H PRN #20 tablet 02/10/19 - Allergies Allergies/Adverse Reactions: Allergies Allergy/AdvReac Type Severity Reaction Status Date / Time Cephalosporins Allergy Rash Verified 02/10/19 19:53 codeine Allergy Itching Verified 02/10/19 19:53 colchicine Allergy Rash Verified 01/15/18 20:58 hydromorphone Allergy Unknown Verified 02/10/19 19:53 Penicillins Allergy Anaphylaxis Verified 02/10/19 19:53 Sulfa (Sulfonamide Allergy Anaphylaxis Verified 02/10/19 19:53 Antibiotics) tuberculin,PPD,multi-puncture Allergy Unknown Verified 02/10/19 19:53 vancomycin Allergy Itching Verified 02/10/19 19:53 adhesive tape AdvReac Intermediate Irritation Verified 02/10/19 19:53 (Paper tape OK) allopurinol AdvReac Rash Verified 02/10/19 19:53 aspartame AdvReac Respiratory Verified 02/10/19 19:53 broccoli AdvReac Unknown Verified 02/10/19 19:53 gabapentin AdvReac Unknown Verified 02/10/19 19:53 NSAIDS (Non-Steroidal AdvReac Unknown Verified 02/10/19 19:53 Anti-Inflamma calcium silicate Allergy Unknown Uncoded 02/10/19 19:53 MSG Allergy Unknown Uncoded 02/10/19 19:53 - Social History Does the pt smoke?: No Smoking Status: Never smoker Does the pt drink ETOH?: No Does the pt have substance abuse?: No - Immunizations Immunizations are current?: Yes - POLST Patient has POLST: No PD ED PE NORMAL - Vitals Vital signs reviewed: Yes - General General: Alert and oriented X 3, No acute distress - Cardiac Cardiac: RRR, No murmur - Respiratory Respiratory: No respiratory distress, Clear bilaterally - Abdomen Abdomen: Non tender, Other (Hyperactive bowel tones without tenderness) - Rectal Rectal: Other (No stool within fingers reach) - Extremities Extremities: No deformity, No tenderness to palpate - Neuro Neuro: Alert and oriented X 3, Normal speech Results - Vitals Vitals: Vital Signs - 24 hr 02/10/19 19:45 Temperature 37.3 C Heart Rate 92 Respiratory 20 Rate Blood Pressure 138/113 H O2 Saturation 100 Oxygen O2 Source Room air - Labs Labs: Laboratory Tests 02/10/19 02/10/19 02/10/19 20:05 20:50 20:50 WBC 5.1 RBC 3.95 L Hgb 11.5 L Hct 35.0 L MCV 88.6 MCH 29.1 MCHC 32.9 RDW 13.3 Plt Count 189 MPV 10.9 H Neut # (Auto) 4.1 Lymph # (Auto) 0.5 L [place] # (Auto) 0.1 Eos # (Auto) 0.1 Baso # (Auto) 0.1 Absolute Nucleated RBC 0.00 Band Neuts % (Manual) Not Reportable Abnorm Lymph % (Manual) Not Reportable Nucleated RBC % 0.0 Neutrophils # (Manual) Not Reportable Lymphocytes # (Manual) Not Reportable Monocytes # (Manual) Not Reportable Eosinophils # (Manual) Not Reportable Basophils # (Manual) Not Reportable Differential Comment MANUAL=AUTO DIFF Platelet Estimate NORMAL (130-450,000) Platelet Morphology NORMAL APPEARANCE RBC Morph Micro Appear NORMAL APPEARANCE Sodium 137 Potassium 3.6 Chloride 97 L Carbon Dioxide 30 Anion Gap 10.0 BUN 12 Creatinine 0.7 Estimated GFR (MDRD) 82 L Glucose 254 H Calcium 9.1 Total Bilirubin 0.4 AST 18 ALT 16 Alkaline Phosphatase 54 Total Protein 7.0 Albumin 3.7 Globulin 3.3 Albumin/Globulin Ratio 1.1 Lipase 20 L Urine Color YELLOW Urine Clarity CLEAR Urine pH 8.0 H Ur Specific [place] 1.010 Urine Protein NEGATIVE Urine Glucose (UA) NEGATIVE Urine Ketones NEGATIVE Urine Occult Blood NEGATIVE Urine Nitrite NEGATIVE Urine Bilirubin NEGATIVE Urine Urobilinogen 0.2 (NORMAL) Ur Leukocyte Esterase NEGATIVE Ur Microscopic Review NOT INDICATED Urine Culture Comments NOT INDICATED - Rads (name of study) CT A/P Radiology: EMP read contemporaneously (1.Mild intrahepatic and extrahepatic bile duct dilatation, unchanged. 2. Mild descending and proximal sigmoid colon diverticulosis. No acute bowel findings are seen. Large stool load.) PD MEDICAL DECISION MAKING - ED course ED course: 73-year-old woman with drug-induced constipation. After magnesium citrate, IV Reglan, IV foods, Dulcolax, and a "triple H" enema she had some output and was feeling better. Departure - Departure Disposition: Home, Self Care Clinical Impression: Constipation Qualifiers: Constipation type: drug induced constipation Qualified Code(s): K59.03 - Drug induced constipation Condition: Good Record reviewed to determine appropriate education?: Yes Instructions: ED Constipation Prescriptions: Lactulose [Generlac] 10 gm PO Q6H PRN #300 ml PRN Reason: Constipation Metoclopramide [Reglan] 10 mg PO Q6H PRN #20 tablet PRN Reason: nausea or headache Comments: Call your doctor to arrange a follow-up appointment, make the next available appointment. In the interim, return anytime if worse or if new symptoms develop. Your blood pressure was elevated today on check into the emergency department. This does not mean that you have hypertension, it is a common phenomenon to come to the emergency department and have elevated blood pressure. I recommend that you see your primary care physician within the week to have it rechecked when you are feeling better.
[2019-02-10] MEDS ORDERED: IOVERSOL 320 100 ML VIAL IVP ONE ×2 (20:56→21:46)
[2019-02-10 21:09] LABS: BASOPHILS # (AUTO) 0.1 10^3/uL (0.0-0.1); EOSINOPHILS # (AUTO) 0.1 10^3/uL (0.0-0.7); EOSINOPHILS % (AUTO) 2.6 %; HGB - HEMOGLOBIN 11.5 g/dL (12.0-16.0); LYMPHOCYTES # (AUTO) 0.5 10^3/uL (1.5-3.5); LYMPHOCYTES % (AUTO) 9.5 %; MEAN CORPUSCULAR HEMOGLOBIN 29.1 pg (27.0-31.0); MEAN CORPUSCULAR HGB CONC 32.9 g/dL (32.0-36.0); MEAN CORPUSCULAR VOLUME 88.6 fL (81.0-99.0); MEAN PLATELET VOLUME 10.9 fL (7.9-10.8); MONOCYTES # (AUTO) 0.1 10^3/uL (0.0-1.0); NEUTROPHILS # (AUTO) 4.1 10^3/uL (1.5-6.6); NEUTROPHILS % (AUTO) 80.9 %; PLT - PLATELET COUNT 189 10^3/uL (130-450); RED BLOOD COUNT 3.95 10^6/uL (4.20-5.40); RED CELL DISTRIBUTION WIDTH 13.3 % (12.0-15.0); WHITE BLOOD COUNT 5.1 x10^3/uL (4.8-10.8)
[2019-02-10 21:14] LABS: ALBUMIN 3.7 g/dL (3.2-5.5); ALBUMIN/GLOBULIN RATIO 1.1 (1.0-2.2); BILIRUBIN,TOTAL 0.4 mg/dL (0.2-1.0); CALCIUM 9.1 mg/dL (8.5-10.3); CREATININE 0.7 mg/dL (0.4-1.0)
[2019-02-10 21:30] LABS: DIFFERENTIAL COMMENT MANUAL=AUTO DIFF; PLATELET ESTIMATE, MANUAL NORMAL (130-450,000) (NORMAL); PLATELET MORPHOLOGY NORMAL APPEARANCE (NORMAL); RBC MORPHOLOGY (MULTIPLE) NORMAL APPEARANCE (NORMAL)
[2019-02-10] MEDS ORDERED: MAGNESIUM CITRATE 296 ML BOTTLE PO STA (21:45)
[2019-02-10] MEDS ORDERED: BISACODYL 5 MG TABLET PO STA (21:45)
[2019-02-10] MEDS ORDERED: METOCLOPRAMIDE 10 MG/2 ML VIAL IVP STA (21:46)
--- NOTE | 2019-02-10 22:21 | CT Report ---
Reason: IV only, abd pain Procedure Date: 02/10/2019 Accession Number: [id number] / [id number] Procedure: CT - Abdomen/Pelvis W CPT Code: FULL RESULT: EXAM: CT ABDOMEN AND PELVIS EXAM DATE: 02/10/2019 09:44 PM. CLINICAL HISTORY: Abdominal pain. Chronic constipation for 2 weeks. COMPARISONS: ABDOMEN/PELVIS W/ 11/03/2018 11:06 AM. TECHNIQUE: Routine helical CT imaging was performed through the abdomen and pelvis. IV contrast: Opti 320 100 mL. Enteric contrast: No. Reconstructions: Coronal and sagittal. In accordance with CT protocol optimization, one or more of the following dose reduction techniques were utilized for this exam: automated exposure control, adjustment of mA and/or KV based on patient size, or use of iterative reconstructive technique. FINDINGS: Lung bases: No acute findings. Liver/bile ducts: Small liver cyst seen at the lateral posterior aspect of the right hepatic lobe. Mild central intrahepatic bile dilatation, unchanged. The common duct is mildly dilated, measuring 1.2 cm, unchanged. Gallbladder: Unremarkable. Pancreas: Atrophy of the pancreas with pancreatic lipomatosis. Spleen: Unremarkable. Adrenals: Unremarkable. Kidneys: Unremarkable. Bowel: Moderate stool in the sigmoid colon. Mild Descending and proximal sigmoid colon diverticulosis. Moderate stool in the transverse colon. No dilated bowel loops are seen. The appendix is not seen. No free fluid or free air. Pelvis: The bladder and remaining pelvic organs appear unremarkable. Status post hysterectomy. Vasculature: Marked atherosclerotic calcification of the abdominal aorta and common iliac arteries. Bones: No acute bone findings. Lumbosacral hardware. IMPRESSION: 1. Mild intrahepatic and extrahepatic bile duct dilatation, unchanged. 2. Mild descending and proximal sigmoid colon diverticulosis. No acute bowel findings are seen. See above. 3. See above. RADIA
[2019-02-10 23:25] VITALS: BP 117/73
== END 2019-02-10 23:28 | disposition home or self-care (01) ==
LOC: ED 19:40
DX: K59.03 Drug induced constipation (principal); T40.2X5A Adverse effect of other opioids, initial encounter; R03.0 Elevated blood-pressure reading, without diagnosis of hypertension; C85.96 Non-Hodgkin lymphoma, unspecified, intrapelvic lymph nodes; E11.9 Type 2 diabetes mellitus without complications; Z79.4 Long term (current) use of insulin; Z79.82 Long term (current) use of aspirin
CPT/HCPCS: 36415; 74177; 80053; 81003; 83690; 85025; 96361; 96374; 99284; A9270; J2765; Q9967; 81001; 87086

== ENCOUNTER 2019-02-27 21:19 | Outpatient (CLI) | payer MEDICARE | END 2019-02-27 21:20 | disposition EMS.NT | LOC: EMS 21:19 | PROVIDERS: ATTEND Surgery | DX: R73.09 Other abnormal glucose (principal) ==

== ENCOUNTER 2019-04-05 14:26 | Outpatient (CLI) | payer MEDICARE ==
[2019-04-05 17:20] LABS: BASOPHILS % (AUTO) 1.5 %; EOSINOPHILS % (AUTO) 1.5 %; HGB - HEMOGLOBIN 10.6 g/dL (12.0-16.0); LYMPHOCYTES # (AUTO) 0.8 10^3/uL (1.5-3.5); LYMPHOCYTES % (AUTO) 31.2 %; MEAN CORPUSCULAR HEMOGLOBIN 29.2 pg (27.0-31.0); MEAN CORPUSCULAR HGB CONC 31.5 g/dL (32.0-36.0); MEAN CORPUSCULAR VOLUME 92.6 fL (81.0-99.0); MEAN PLATELET VOLUME 10.7 fL (7.9-10.8); MONOCYTES # (AUTO) 0.7 10^3/uL (0.0-1.0); PLT - PLATELET COUNT 280 10^3/uL (130-450); RED BLOOD COUNT 3.63 10^6/uL (4.20-5.40); RED CELL DISTRIBUTION WIDTH 14.4 % (12.0-15.0); WHITE BLOOD COUNT 2.6 x10^3/uL (4.8-10.8)
[2019-04-05 19:46] LABS: DIFFERENTIAL COMMENT MANUAL=AUTO DIFF; PLATELET ESTIMATE, MANUAL NORMAL (130-450,000) (NORMAL); PLATELET MORPHOLOGY NORMAL APPEARANCE (NORMAL); RBC MORPHOLOGY (MULTIPLE) NORMAL APPEARANCE (NORMAL)
== END 2019-04-05 14:27 | disposition home or self-care (01) ==
LOC: LAB.S 14:26
PROVIDERS: ATTEND Internal Medicine
DX: C83.33 Diffuse large B-cell lymphoma, intra-abdominal lymph nodes (principal); R19.00 Intra-abdominal and pelvic swelling, mass and lump, unspecified site
CPT/HCPCS: 36415; 85025

== ENCOUNTER 2019-06-18 10:34 | Outpatient (CLI) | payer MEDICARE, OTHER ==
[2019-06-18 10:58] LABS: BASOPHILS % (AUTO) 0.7 %; EOSINOPHILS # (AUTO) 0.4 10^3/uL (0.0-0.7); EOSINOPHILS % (AUTO) 6.1 %; HGB - HEMOGLOBIN 12.4 g/dL (12.0-16.0); LYMPHOCYTES # (AUTO) 1.5 10^3/uL (1.5-3.5); MEAN CORPUSCULAR HEMOGLOBIN 28.2 pg (27.0-31.0); MEAN CORPUSCULAR HGB CONC 31.6 g/dL (32.0-36.0); MEAN CORPUSCULAR VOLUME 89.3 fL (81.0-99.0); MEAN PLATELET VOLUME 10.8 fL (7.9-10.8); MONOCYTES # (AUTO) 0.6 10^3/uL (0.0-1.0); MONOCYTES % (AUTO) 9.5 %; NEUTROPHILS # (AUTO) 3.6 10^3/uL (1.5-6.6); NEUTROPHILS % (AUTO) 58.4 %; PLT - PLATELET COUNT 188 10^3/uL (130-450); RED CELL DISTRIBUTION WIDTH 14.4 % (12.0-15.0); WHITE BLOOD COUNT 6.1 x10^3/uL (4.8-10.8)
[2019-06-18 11:08] LABS: ALBUMIN 4.3 g/dL (3.2-5.5); ALBUMIN/GLOBULIN RATIO 1.2 (1.0-2.2); BILIRUBIN,TOTAL 0.7 mg/dL (0.2-1.0); CALCIUM 9.6 mg/dL (8.5-10.3); CREATININE 0.6 mg/dL (0.4-1.0); TOTAL PROTEIN 7.8 g/dL (6.7-8.2)
== END 2019-06-18 10:35 | disposition home or self-care (01) ==
LOC: LAB 10:34
PROVIDERS: ATTEND Physician Assistant Medical
DX: R10.11 Right upper quadrant pain (principal); Z79.899 Other long term (current) drug therapy
CPT/HCPCS: 36415; 80053; 85025

== ENCOUNTER 2019-06-22 07:59 | Emergency (ER) | payer MEDICARE, OTHER ==
--- NOTE | 2019-06-22 08:21 | ED Physician Documentation ---
PD HPI ABD PAIN - Stated complaint Stated Complaint: NAUSEA/STOMACH PX - Chief complaint Chief Complaint: Back Pain - History obtained from History obtained from: Patient - History of Present Illness Timing - onset: How many months ago (1) Timing - duration: Months (1) Timing - details: Waxing and waning (initially episodic and then more consistent but mild and then has gotten worse the past few days. Pain RUQ and epigastric with nausea.) Quality: Cramping, Aching, Pain Location: RUQ, Epigastric Radiation: No: Lower back, Right shoulder Improved by: No: Eating, Laying still, Position Worsened by: Eating Associated symptoms: Nausea, Diarrhea (loose and foul smelling with significant smelly gas.). No: Fever, Vomiting, Dysuria Similar symptoms before: Has not had sx before Recently seen: Clinic (seen by Oncology about 3 weeks ago and had port removed since was done with chemo. Had PET scan done 2 months ago and found to not have any residual lymphoma burden.) Review of Systems Constitutional: reports: Myalgias, Fatigue. denies: Fever, Chills Nose: denies: Rhinorrhea / runny nose, Congestion Throat: denies: Sore throat Cardiac: denies: Chest pain / pressure Respiratory: denies: Cough GI: reports: Abdominal Pain, Nausea, Diarrhea. 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 Cardiovascular: Cardiac catheterization HEENT: Cataracts, Tonsil/Adenoidectomy - Present Medications Home Medications: Ambulatory Orders Medication Instructions Recorded Confirmed Docusate Sodium 100 mg PO BID 02/14/15 02/15/15 Febuxostat [Uloric] 40 mg PO DAILY 02/14/15 02/15/15 Insulin Lispro [Humalog] 15 unit SUBQ TIDACHS 02/14/15 02/15/15 Insulin NPH Human Isophane 24 unit DAILY 02/14/15 02/14/15 [Humulin N] Insulin NPH Human Isophane 74 unit QPM 02/14/15 02/14/15 [Humulin N] Methocarbamol [Robaxin-750] 1 tab PO DAILY PRN 02/14/15 02/15/15 Metoclopramide [Reglan] 10 mg PO BIDAC 02/14/15 02/15/15 Metoprolol Tartrate 25 mg DAILY 02/14/15 02/14/15 Moxide 02/14/15 02/14/15 Multivitamin [Multivitamins] 1 tab DAILY 02/14/15 02/14/15 Nortriptyline [Pamelor] 50 mg QPM 02/14/15 02/14/15 Pantoprazole [Protonix] 40 mg BID 02/14/15 02/14/15 Pravastatin Sodium 20 mg PO Q48H 02/14/15 02/15/15 Tumeric 500 mg PO DAILY 02/14/15 02/15/15 metFORMIN [Glucophage] 1,000 mg BID 02/14/15 02/14/15 oxyCODONE ER [OxyCONTIN] 20 mg BID 02/14/15 02/14/15 oxyCODONE [Roxicodone] 20 mg PO QID 02/14/15 02/15/15 Albuterol [Ventolin Hfa] 1 - 2 puffs INH Q4H PRN 02/15/15 02/15/15 Aspirin [Aspirin EC] 325 mg PO DAILY 02/15/15 02/15/15 Triamterene/Hydrochlorothiazid 1 tab PO DAILY 02/15/15 02/15/15 [Triamterene-Hctz 75-50 mg Tab] Peg 3350/Na Sulf,Bicarb,Cl/KCl 4,000 ml PO ONCE #1 bottle 01/10/18 [Golytely] Doxycycline Hyclate 100 mg PO BID #10 capsule 01/15/18 Lactulose [Generlac] 10 gm PO Q6H PRN #300 ml 02/10/19 Metoclopramide [Reglan] 10 mg PO Q6H PRN #20 tablet 02/10/19 - Allergies Allergies/Adverse Reactions: Allergies Allergy/AdvReac Type Severity Reaction Status Date / Time Cephalosporins Allergy Rash Verified 06/22/19 08:07 codeine Allergy Itching Verified 06/22/19 08:07 colchicine Allergy Rash Verified 06/22/19 08:07 hydromorphone Allergy Unknown Verified 06/22/19 08:07 Penicillins Allergy Anaphylaxis Verified 06/22/19 08:07 Sulfa (Sulfonamide Allergy Anaphylaxis Verified 06/22/19 08:07 Antibiotics) tuberculin,PPD,multi-puncture Allergy Unknown Verified 06/22/19 08:07 vancomycin Allergy Itching Verified 06/22/19 08:07 adhesive tape AdvReac Intermediate Irritation Verified 06/22/19 08:07 (Paper tape OK) allopurinol AdvReac Rash Verified 06/22/19 08:07 aspartame AdvReac Respiratory Verified 06/22/19 08:07 broccoli AdvReac Unknown Verified 06/22/19 08:07 gabapentin AdvReac Unknown Verified 06/22/19 08:07 NSAIDS (Non-Steroidal AdvReac Unknown Verified 06/22/19 08:07 Anti-Inflamma calcium silicate Allergy Unknown Uncoded 02/10/19 19:53 MSG Allergy Unknown Uncoded 02/10/19 19:53 - Social History Does the pt smoke?: No Smoking Status: Never smoker Does the pt drink ETOH?: No Does the pt have substance abuse?: No - Immunizations Immunizations are current?: Yes - POLST Patient has POLST: No PD ED PE NORMAL - Vitals Vital signs reviewed: Yes - General General: Alert and oriented X 3, No acute distress, Well developed/nourished - HEENT HEENT: Pharynx benign - Neck Neck: Supple, no meningeal sign, No adenopathy - Cardiac Cardiac: RRR, No murmur - Respiratory Respiratory: Clear bilaterally - Abdomen Abdomen: Soft, Non distended, No organomegaly, Other (tender upper abd right mostly, without percussion nor rebound tenderness. ). No: Normal bowel sounds ( increased sounds diffusely) - Female Female : Deferred - Rectal Rectal: Deferred - Back Back: No CVA TTP - Derm Derm: Normal color, Warm and dry - Extremities Extremities: No edema, No calf tenderness / cord - Neuro Neuro: Alert and oriented X 3, No motor deficit, Normal speech Results - Vitals Vitals: Vital Signs - 24 hr 06/22/19 06/22/19 06/22/19 08:07 09:16 10:27 Temperature 37.2 C Heart Rate 84 68 62 Respiratory 18 16 16 Rate Blood Pressure 128/60 97/41 L 122/78 O2 Saturation 100 98 98 06/22/19 06/22/19 13:08 14:21 Temperature Heart Rate 66 68 Respiratory 14 16 Rate Blood Pressure 122/49 L 104/58 L O2 Saturation 94 97 Oxygen O2 Source Room air - Labs Labs: Microbiology 06/22/19 09:40 Campylobacter Antigen Assay - Final Stool Laboratory Tests 06/22/19 06/22/19 06/22/19 08:21 08:21 08:21 WBC 7.9 RBC 4.48 Hgb 12.7 Hct 39.8 MCV 88.8 MCH 28.3 MCHC 31.9 L RDW 14.6 Plt Count 193 MPV 10.3 Neut # (Auto) 5.5 Lymph # (Auto) 1.6 [place] # (Auto) 0.5 Eos # (Auto) 0.2 Baso # (Auto) 0.0 Absolute Nucleated RBC 0.00 Nucleated RBC % 0.0 Sodium 139 Potassium 3.5 Chloride 102 Carbon Dioxide 27 Anion Gap 10.0 BUN 12 Creatinine 0.6 Estimated GFR (MDRD) 98 Glucose 122 H Lactic Acid Calcium 9.4 Magnesium 1.9 Total Bilirubin 1.9 H AST 77 H ALT 64 H Alkaline Phosphatase 274 H Total Protein 7.3 Albumin 4.1 Globulin 3.2 Albumin/Globulin Ratio 1.3 Lipase 19 L Urine Color Urine Clarity Urine pH Ur Specific [place] Urine Protein Urine Glucose (UA) Urine Ketones Urine Occult Blood Urine Nitrite Urine Bilirubin Urine Urobilinogen Ur Leukocyte Esterase Ur Microscopic Review Urine Culture Comments Stl C. diff Tox B Gene 06/22/19 06/22/19 06/22/19 08:50 09:40 09:40 WBC RBC Hgb Hct MCV MCH MCHC RDW Plt Count MPV Neut # (Auto) Lymph # (Auto) [place] # (Auto) Eos # (Auto) Baso # (Auto) Absolute Nucleated RBC Nucleated RBC % Sodium Potassium Chloride Carbon Dioxide Anion Gap BUN Creatinine Estimated GFR (MDRD) Glucose Lactic Acid 1.0 Calcium Magnesium Total Bilirubin AST ALT Alkaline Phosphatase Total Protein Albumin Globulin Albumin/Globulin Ratio Lipase Urine Color YELLOW Urine Clarity CLEAR Urine pH 6.0 Ur Specific [place] 1.010 Urine Protein NEGATIVE Urine Glucose (UA) NEGATIVE Urine Ketones NEGATIVE Urine Occult Blood NEGATIVE Urine Nitrite NEGATIVE Urine Bilirubin NEGATIVE Urine Urobilinogen 1 (NORMAL) Ur Leukocyte Esterase NEGATIVE Ur Microscopic Review NOT INDICATED Urine Culture Comments NOT INDICATED Stl C. diff Tox B Gene NEGATIVE - Rads (name of study) RUQ abd U?S Radiology: Prelim report reviewed (distended gallbladder without wall thickness. CBD dilated at 20 mm, 10 mm at distal portion. Concern for ductal blockage. Recommends MRCP.), See rad report PD MEDICAL DECISION MAKING - ED course Complexity details: reviewed results (U/S showing ductal blockage. We are unable to get MRCP today, or if possible, might be 5-6 pm. Patient needing to be going home to take care of son. I talked with her Oncologist and he felt not cancer/lymphoma related. ), considered differential, d/w patient, d/w PMD (Patient did not want to investigate transfer to [place], has to go home to care for her son and pets. Pt seems stable and has had symptoms for a week or so, so can attempt outpt eval and GI referral. I talked with [facility] JENNIFER Ross and will see pt tomorrow at 4:30 pm.), d/w product management consultant (Oncology, who felt current CBD dilation would not be lymphoma related given normal PET scan couple months ago. ) Departure - Departure Disposition: Home, Self Care Clinical Impression: Common bile duct dilatation, Upper abdominal pain Diarrhea Qualifiers: Diarrhea type: unspecified type Qualified Code(s): R19.7 - Diarrhea, unspecified Condition: Stable Record reviewed to determine appropriate education?: Yes Instructions: ED Abdominal Pain Unkn Cause Follow-Up: La Nena Hensley PA-C [Primary Care Provider] - Comments: Call the [facility] either today if they are still open when you are home or first thing in the morning. Confirm an appointment time for tomorrow at likely 430 and change it if you not able to make that time. I talked with the provider there, JENNIFER Ross, who said he can see you tomorrow afternoon. Continue usual medicines. They are going to try to get you the imaging and GI referral. Return to the ER sooner if worsening. Discharge Date/Time: 06/22/19 14:37
[2019-06-22 08:34] LABS: BASOPHILS % (AUTO) 0.4 %; EOSINOPHILS # (AUTO) 0.2 10^3/uL (0.0-0.7); EOSINOPHILS % (AUTO) 2.9 %; HGB - HEMOGLOBIN 12.7 g/dL (12.0-16.0); LYMPHOCYTES # (AUTO) 1.6 10^3/uL (1.5-3.5); LYMPHOCYTES % (AUTO) 20.4 %; MEAN CORPUSCULAR HEMOGLOBIN 28.3 pg (27.0-31.0); MEAN CORPUSCULAR HGB CONC 31.9 g/dL (32.0-36.0); MEAN CORPUSCULAR VOLUME 88.8 fL (81.0-99.0); MEAN PLATELET VOLUME 10.3 fL (7.9-10.8); MONOCYTES # (AUTO) 0.5 10^3/uL (0.0-1.0); MONOCYTES % (AUTO) 6.7 %; NEUTROPHILS # (AUTO) 5.5 10^3/uL (1.5-6.6); NEUTROPHILS % (AUTO) 69.2 %; PLT - PLATELET COUNT 193 10^3/uL (130-450); RED BLOOD COUNT 4.48 10^6/uL (4.20-5.40); RED CELL DISTRIBUTION WIDTH 14.6 % (12.0-15.0); WHITE BLOOD COUNT 7.9 x10^3/uL (4.8-10.8)
[2019-06-22] MEDS ORDERED: SODIUM CHLORIDE 0.9% 1,000 ML IV ONE (08:38)
[2019-06-22] MEDS ORDERED: FAMOTIDINE 20 MG/2 ML VIAL IVP STA (08:38)
[2019-06-22] MEDS ORDERED: ONDANSETRON 4 MG/2 ML VIAL IVP STA (08:38)
[2019-06-22 08:40] LABS: ALBUMIN 4.1 g/dL (3.2-5.5); ALBUMIN/GLOBULIN RATIO 1.3 (1.0-2.2); BILIRUBIN,TOTAL 1.9 mg/dL (0.2-1.0); CALCIUM 9.4 mg/dL (8.5-10.3); CREATININE 0.6 mg/dL (0.4-1.0); TOTAL PROTEIN 7.3 g/dL (6.7-8.2)
[2019-06-22] MEDS ORDERED: ACETAMINOPHEN 1,000 MG/100 ML 100 ML IV STA (08:40)
[2019-06-22 09:54] LABS: BILIRUBIN,URINE NEGATIVE (NEGATIVE); GLUCOSE, URINE (UA) NEGATIVE (NEGATIVE); KETONES,URINE (UA) NEGATIVE (NEGATIVE); LEUKOCYTE ESTERASE, URINE NEGATIVE (NEGATIVE); NITRITE,URINE NEGATIVE (NEGATIVE); OCCULT BLOOD,URINE NEGATIVE (NEGATIVE); PROTEIN,URINE NEGATIVE (NEGATIVE); UROBILINOGEN,URINE 1 (NORMAL) E.U./dL (NORMAL)
[2019-06-22 09:57] LABS: CLARITY,URINE CLEAR (CLEAR)
--- NOTE | 2019-06-22 10:27 | Ultrasound Report ---
Reason: RUQ abd pain and irregular stools for weeks Procedure Date: 06/22/2019 Accession Number: [id number] / [id number] Procedure: US - Abdomen Limited CPT Code: Addended Final Report FULL RESULT: EXAM: ABDOMEN ULTRASOUND LIMITED, RUQ EXAM DATE: 06/22/2019 09:48 AM. CLINICAL HISTORY: RUQ abd pain and irregular stools for weeks. COMPARISON: CT of the abdomen and pelvis from 02/10/2019, 09/07/2014. TECHNIQUE: Real-time scanning was performed with static images obtained. FINDINGS: Liver: Diffusely increased in echogenicity. Right hepatic lobe measures 19.1 cm. There is a small cyst in the periphery of the right hepatic lobe measuring 1.4 x 1.2 x 1.1 cm. Main portal vein flow: Hepatopetal. Gallbladder: No gallstones or gallbladder wall thickening. Gallbladder is distended. Biliary System: CBD measures 20 mm. There is severe intrahepatic biliary duct dilation. Other: Lower pole of the right kidney is obscured by bowel gas. Right kidney measures approximately 1.5 cm longitudinally. No hydronephrosis. IMPRESSION: 1. Marked biliary ductal dilation, which has progressed since the prior CT. The degree of ductal dilation and progressive change from the prior examination raises concern for distal obstructing mass. Pancreas protocol MRI with MRCP is recommended for further evaluation. 2. Diffusely increased hepatic echogenicity and mild hepatic enlargement are nonspecific findings but are most commonly seen as sequela of hepatic steatosis. 3. Of note, previous CT examinations demonstrated lytic destructive osseous lesions of the left pubic bones, including the acetabulum. These could represent metastases in light of the biliary findings. RADIA The call report notification system was initiated by Dr. Tray Albert at 10:19 AM on 06/22/2019. ADDENDUM: 06/22/19 10:35 The above call report findings were discussed with JARON Yarbrough, by Dr. Tray Albert at 10:35 AM on 06/22/2019.
[2019-06-22] MEDS ORDERED: MORPHINE 10 MG/ML VIAL IVP STA (13:08)
[2019-06-22 14:22] VITALS: BP 104/58
== END 2019-06-22 14:37 | disposition home or self-care (01) ==
LOC: ED 07:59
DX: K83.8 Other specified diseases of biliary tract (principal); R19.7 Diarrhea, unspecified; R10.10 Upper abdominal pain, unspecified; R16.0 Hepatomegaly, not elsewhere classified; E11.9 Type 2 diabetes mellitus without complications; Z79.4 Long term (current) use of insulin
CPT/HCPCS: 36415; 76705; 80053; 81001; 81003; 83605; 83690; 83735; 85025; 87045; 87046; 87086; 87493; 96374; 99284

== ENCOUNTER 2019-06-24 09:39 | Outpatient (CLI) | payer MEDICARE, OTHER ==
[2019-06-24 17:46] LABS: ALBUMIN 3.7 g/dL (3.2-5.5); ALBUMIN/GLOBULIN RATIO 1.2 (1.0-2.2); CREATININE 0.6 mg/dL (0.4-1.0); TOTAL PROTEIN 6.8 g/dL (6.7-8.2)
== END 2019-06-24 09:40 | disposition home or self-care (01) ==
LOC: LAB.S 09:39
PROVIDERS: ATTEND Physician Assistant
DX: K83.1 Obstruction of bile duct (principal); R10.9 Unspecified abdominal pain; R74.8 Abnormal levels of other serum enzymes
CPT/HCPCS: 36415; 80053; 82150; 83690

== ENCOUNTER 2019-07-23 11:57 | Outpatient (CLI) | payer MEDICARE, OTHER ==
--- NOTE | 2019-07-23 23:42 | XRAY Report ---
Reason: PANCREATIC DUCT STENT PLACEMENT Procedure Date: 07/23/2019 Accession Number: [id number] / [id number] Procedure: XR - Abdomen 2 View X-Ray CPT Code: 55979 Final Report FULL RESULT: EXAM: ABDOMEN RADIOGRAPHY EXAM DATE: 07/23/2019 12:02 PM. CLINICAL HISTORY: PANCREATIC DUCT STENT PLACEMENT. Evaluate position of pancreatic stent. COMPARISON: ABDOMEN/PELVIS W/ 02/10/2019 9:39 PM ABDOMEN LIMITED 06/22/2019 9:14 AM. TECHNIQUE: 2 views. FINDINGS: No pancreatic stent is seen. Post surgical changes from a posterior spinal fusion from L2-L5 are seen. The lung bases are clear. No abnormally dilated loops of bowel are present. Stool was seen throughout the imaged portions of the colon. There are no abnormal calcifications. Degenerative changes are seen in the sacroiliac joints. IMPRESSION: Nonobstructed bowel gas pattern. No evidence of pancreatic stent. RADIA
== END 2019-07-23 11:58 | disposition home or self-care (01) ==
LOC: DI 11:57
PROVIDERS: ATTEND Internal Medicine
DX: Z45.89 Encounter for adjustment and management of other implanted devices (principal); Z96.89 Presence of other specified functional implants
CPT/HCPCS: 74019

== ENCOUNTER 2019-09-22 20:12 | Emergency (ER) | payer MEDICARE, OTHER ==
--- NOTE | 2019-09-22 20:17 | ED Physician Documentation ---
History of Present Illness - Stated complaint Stated Complaint: FEVER,SURGICAL WOUND - History obtained from History obtained from: Patient (Patient is a 74-year-old female with a very recent complicated past medical history to include ERCP with stent placement and subsequent removal according to the placement was seen earlier today by interventional radiology at [facility] in [place] and had a biliary stent placed as an outpatient was sent home the patient developed a fever and she shows up to our emergency department she also reports nausea with vomiting and excessive drainage from her biliary drain bag.Patient reports fevers up to 103 at home she reports she took several ibuprofen and Tylenol prior to arrival.) Review of Systems Constitutional: reports: Fever, Chills, Myalgias Eyes: reports: Reviewed and negative Ears: reports: Reviewed and negative Nose: reports: Reviewed and negative Throat: reports: Reviewed and negative Cardiac: reports: Reviewed and negative Respiratory: reports: Reviewed and negative GI: reports: Reviewed and negative : reports: Reviewed and negative Skin: reports: Reviewed and negative Musculoskeletal: reports: Reviewed and negative Neurologic: reports: Reviewed and negative Psychiatric: reports: Reviewed and negative Endocrine: reports: Reviewed and negative Immunocompromised: reports: Reviewed and negative PD PAST MEDICAL HISTORY - Past Medical History Cardiovascular: High cholesterol, Murmur Respiratory: Asthma, Sleep apnea, CPAP use Endocrine/Autoimmune: Type 2 diabetes GI: Ulcers, Diverticulitis : Retention, Frequency Musculoskeletal: Gout Derm: Other - Past Surgical History Past Surgical History: Yes General: Appendectomy Ortho: Knee replacement, 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 Cardiovascular: Cardiac catheterization HEENT: Cataracts, Tonsil/Adenoidectomy - Present Medications Home Medications: Ambulatory Orders Medication Instructions Recorded Confirmed Docusate Sodium 100 mg PO BID 02/14/15 02/15/15 Febuxostat [Uloric] 40 mg PO DAILY 02/14/15 02/15/15 Insulin Lispro [Humalog] 15 unit SUBQ TIDACHS 02/14/15 02/15/15 Insulin NPH Human Isophane 24 unit DAILY 02/14/15 02/14/15 [Humulin N] Insulin NPH Human Isophane 74 unit QPM 02/14/15 02/14/15 [Humulin N] Methocarbamol [Robaxin-750] 1 tab PO DAILY PRN 02/14/15 02/15/15 Metoclopramide [Reglan] 10 mg PO BIDAC 02/14/15 02/15/15 Metoprolol Tartrate 25 mg DAILY 02/14/15 02/14/15 Moxide 02/14/15 02/14/15 Multivitamin [Multivitamins] 1 tab DAILY 02/14/15 02/14/15 Nortriptyline [Pamelor] 50 mg QPM 02/14/15 02/14/15 Pantoprazole [Protonix] 40 mg BID 02/14/15 02/14/15 Pravastatin Sodium 20 mg PO Q48H 02/14/15 02/15/15 Tumeric 500 mg PO DAILY 02/14/15 02/15/15 metFORMIN [Glucophage] 1,000 mg BID 02/14/15 02/14/15 oxyCODONE ER [OxyCONTIN] 20 mg BID 02/14/15 02/14/15 oxyCODONE [Roxicodone] 20 mg PO QID 02/14/15 02/15/15 Albuterol [Ventolin Hfa] 1 - 2 puffs INH Q4H PRN 02/15/15 02/15/15 Aspirin [Aspirin EC] 325 mg PO DAILY 02/15/15 02/15/15 Triamterene/Hydrochlorothiazid 1 tab PO DAILY 02/15/15 02/15/15 [Triamterene-Hctz 75-50 mg Tab] Peg 3350/Na Sulf,Bicarb,Cl/KCl 4,000 ml PO ONCE #1 bottle 01/10/18 [Golytely] Doxycycline Hyclate 100 mg PO BID #10 capsule 01/15/18 Lactulose [Generlac] 10 gm PO Q6H PRN #300 ml 02/10/19 Metoclopramide [Reglan] 10 mg PO Q6H PRN #20 tablet 02/10/19 - Allergies Allergies/Adverse Reactions: Allergies Allergy/AdvReac Type Severity Reaction Status Date / Time Cephalosporins Allergy Rash Verified 09/22/19 20:26 codeine Allergy Itching Verified 09/22/19 20:26 colchicine Allergy Rash Verified 09/22/19 20:26 hydromorphone Allergy Unknown Verified 09/22/19 20:26 Penicillins Allergy Anaphylaxis Verified 09/22/19 20:26 Sulfa (Sulfonamide Allergy Anaphylaxis Verified 09/22/19 20:26 Antibiotics) tuberculin,PPD,multi-puncture Allergy Unknown Verified 09/22/19 20:26 vancomycin Allergy Itching Verified 09/22/19 20:26 adhesive tape AdvReac Intermediate Irritation Verified 09/22/19 20:26 (Paper tape OK) allopurinol AdvReac Rash Verified 09/22/19 20:26 aspartame AdvReac Respiratory Verified 09/22/19 20:26 broccoli AdvReac Unknown Verified 09/22/19 20:26 gabapentin AdvReac Unknown Verified 09/22/19 20:26 NSAIDS (Non-Steroidal AdvReac Unknown Verified 09/22/19 20:26 Anti-Inflamma calcium silicate Allergy Unknown Uncoded 02/10/19 19:53 MSG Allergy Unknown Uncoded 02/10/19 19:53 - Social History Does the pt smoke?: No Smoking Status: Never smoker Does the pt drink ETOH?: No Does the pt have substance abuse?: No - Immunizations Immunizations are current?: Yes - POLST Patient has POLST: No PD ED PE NORMAL - Vitals Vital signs reviewed: Yes - General General: Alert and oriented X 3, No acute distress, Well developed/nourished - HEENT HEENT: PERRL, Pharynx benign - Neck Neck: Supple, no meningeal sign, No JVD - Cardiac Cardiac: RRR, No murmur, Strong equal pulses - Respiratory Respiratory: No respiratory distress, Clear bilaterally - Abdomen Abdomen: Normal bowel sounds, Soft, Non tender, Non distended, Other (Drain exiting from the abdomen secured to the abdomen with no acute signs of infection there is clear bile in the drainage bag there is no crepitus no fluctuance or induration no midline abdominal pulsatile mass) - Back Back: No spinal TTP - Derm Derm: Warm and dry, No rash - Extremities Extremities: No deformity, No tenderness to palpate, Normal ROM s pain, No edema, No calf tenderness / cord - Neuro Neuro: Alert and oriented X 3, legal paraprofessional 2-12 intact, No motor deficit, No sensory deficit, Normal speech - Psych Psych: Normal mood, Normal affect Results - Vitals Vitals: Vital Signs - 24 hr 09/22/19 09/22/19 20:15 22:15 Temperature 36.3 C L Heart Rate 127 H 101 H Respiratory 20 20 Rate Blood Pressure 135/74 H 123/63 O2 Saturation 97 98 Oxygen O2 Source Room air - EKG (time done) 20:46 Rate: Other (no stemi) - Labs Labs: Laboratory Tests 09/22/19 09/22/19 09/22/19 20:50 20:50 20:50 WBC 14.1 H RBC 4.79 Hgb 15.0 Hct 43.6 MCV 91.0 MCH 31.3 H MCHC 34.4 RDW 14.6 Plt Count 178 MPV 11.2 H Neut # (Auto) 12.1 H Lymph # (Auto) 0.8 L [place] # (Auto) 1.0 Eos # (Auto) 0.1 Baso # (Auto) 0.1 Absolute Nucleated RBC 0.00 Nucleated RBC % 0.0 PT 17.2 H INR 1.5 H APTT 45.5 H Sodium 134 L Potassium 3.5 Chloride 100 L Carbon Dioxide 23 Anion Gap 11.0 BUN 12 Creatinine 0.6 Estimated GFR (MDRD) 98 Glucose 280 H Lactic Acid Calcium 9.3 Total Bilirubin 1.8 H Direct Bilirubin 0.8 H AST 48 H ALT 32 Alkaline Phosphatase 342 H Total Creatine Kinase 45 Troponin I High Sens B-Natriuretic Peptide Total Protein 7.8 Albumin 3.5 Globulin 4.3 H Lipase 341 H Urine Color Urine Clarity Urine pH Ur Specific [place] Urine Protein Urine Glucose (UA) Urine Ketones Urine Occult Blood Urine Nitrite Urine Bilirubin Urine Urobilinogen Ur Leukocyte Esterase Ur Microscopic Review Urine Culture Comments 09/22/19 09/22/19 09/22/19 20:50 20:50 20:50 WBC RBC Hgb Hct MCV MCH MCHC RDW Plt Count MPV Neut # (Auto) Lymph # (Auto) [place] # (Auto) Eos # (Auto) Baso # (Auto) Absolute Nucleated RBC Nucleated RBC % PT INR APTT Sodium Potassium Chloride Carbon Dioxide Anion Gap BUN Creatinine Estimated GFR (MDRD) Glucose Lactic Acid 1.2 Calcium Total Bilirubin Direct Bilirubin AST ALT Alkaline Phosphatase Total Creatine Kinase Troponin I High Sens 9.4 B-Natriuretic Peptide 99 Total Protein Albumin Globulin Lipase Urine Color Urine Clarity Urine pH Ur Specific [place] Urine Protein Urine Glucose (UA) Urine Ketones Urine Occult Blood Urine Nitrite Urine Bilirubin Urine Urobilinogen Ur Leukocyte Esterase Ur Microscopic Review Urine Culture Comments 09/22/19 22:00 WBC RBC Hgb Hct MCV MCH MCHC RDW Plt Count MPV Neut # (Auto) Lymph # (Auto) [place] # (Auto) Eos # (Auto) Baso # (Auto) Absolute Nucleated RBC Nucleated RBC % PT INR APTT Sodium Potassium Chloride Carbon Dioxide Anion Gap BUN Creatinine Estimated GFR (MDRD) Glucose Lactic Acid Calcium Total Bilirubin Direct Bilirubin AST ALT Alkaline Phosphatase Total Creatine Kinase Troponin I High Sens B-Natriuretic Peptide Total Protein Albumin Globulin Lipase Urine Color YELLOW Urine Clarity CLEAR Urine pH 5.5 Ur Specific [place] 1.020 Urine Protein NEGATIVE Urine Glucose (UA) NEGATIVE Urine Ketones NEGATIVE Urine Occult Blood NEGATIVE Urine Nitrite NEGATIVE Urine Bilirubin NEGATIVE Urine Urobilinogen 0.2 (NORMAL) Ur Leukocyte Esterase NEGATIVE Ur Microscopic Review NOT INDICATED Urine Culture Comments NOT INDICATED PD MEDICAL DECISION MAKING - ED course Complexity details: reviewed results, re-evaluated patient, considered differential (post op fever), d/w patient (I had a lengthy discussion with this patient and I recommend admission for observation and/or transfer to [facility] for observation and further evaluation by interventional radiology and gastroenterology the patient's refusing she has medical decision-making capability and capacity she accepts any and all responsibility for refusing to be transferred or admitted when I want to go update this patient she had eloped. The patient accepts any and all responsibility for any possible adverse events such as sepsis or cardiac arrest and assumes all liability for eloping.), d/w family - Consults Consults: Discussed case with (spoke with dr orosco interventional radiology @ [facility] in [place]. He recommends patient be admitted overnight for observation or transferred to [facility], spoke with GI dr. stanford choudhury. recommends to consult IR and hospitalist at [facility]. ) Departure - Departure Disposition: ED [place] Clinical Impression: Biliary obstruction, Elevated lipase Condition: Stable Follow-Up: your, doctor [Other] - Tomorrow Discharge Date/Time: 09/22/19 23:45
[2019-09-22] MEDS ORDERED: SODIUM CHLORIDE 0.9% 1,000 ML IV STA (20:42)
[2019-09-22] MEDS ORDERED: PIPERACILLIN/TAZOBACTAM 3.375 GM in SODIUM CHLORIDE 0.9% MINIBAG 100 ML IV STA (20:43)
[2019-09-22 21:04] LABS: BASOPHILS # (AUTO) 0.1 10^3/uL (0.0-0.1); BASOPHILS % (AUTO) 0.6 %; EOSINOPHILS # (AUTO) 0.1 10^3/uL (0.0-0.7); EOSINOPHILS % (AUTO) 0.4 %; LYMPHOCYTES # (AUTO) 0.8 10^3/uL (1.5-3.5); LYMPHOCYTES % (AUTO) 5.7 %; MEAN CORPUSCULAR HEMOGLOBIN 31.3 pg (27.0-31.0); MEAN CORPUSCULAR HGB CONC 34.4 g/dL (32.0-36.0); MEAN PLATELET VOLUME 11.2 fL (7.9-10.8); NEUTROPHILS # (AUTO) 12.1 10^3/uL (1.5-6.6); NEUTROPHILS % (AUTO) 85.9 %; PLT - PLATELET COUNT 178 10^3/uL (130-450); RED BLOOD COUNT 4.79 10^6/uL (4.20-5.40); RED CELL DISTRIBUTION WIDTH 14.6 % (12.0-15.0); WHITE BLOOD COUNT 14.1 x10^3/uL (4.8-10.8)
[2019-09-22 21:09] LABS: INR 1.5 (0.8-1.2); PT - PROTHROMBIN TIME 17.2 secs (9.9-12.6)
[2019-09-22 21:16] LABS: PARTIAL THROMBOPLASTIN TIME 45.5 secs (24.9-33.3)
[2019-09-22 21:19] LABS: ALBUMIN 3.5 g/dL (3.2-5.5); BILIRUBIN,DIRECT 0.8 mg/dL (0.1-0.5); BILIRUBIN,TOTAL 1.8 mg/dL (0.2-1.0); CALCIUM 9.3 mg/dL (8.5-10.3); CREATININE 0.6 mg/dL (0.4-1.0); TOTAL PROTEIN 7.8 g/dL (6.7-8.2)
--- NOTE | 2019-09-22 21:19 | XRAY Report ---
Reason: fever Procedure Date: 09/22/2019 Accession Number: [id number] / [id number] Procedure: XR - Chest 1 View X-Ray CPT Code: 44604 Final Report FULL RESULT: PROCEDURE: Chest 1 View X-Ray INDICATIONS: fever TECHNIQUE: One view of the chest was acquired. COMPARISON: None FINDINGS: Surgical changes and devices: None. Lungs and pleura: No pleural effusions or pneumothorax. Lungs are clear. Mediastinum: Mediastinal contours appear normal. Heart size is normal. Bones and chest wall: No suspicious bony lesions. Overlying soft tissues appear unremarkable. IMPRESSION: No acute cardiopulmonary disease process. Reviewed by: Eloisa Rouse MD, PhD on 09/22/2019 9:17 PM PDT Approved by: Eloisa Rouse MD, PhD on 09/22/2019 9:17 PM PDT Station ID: [id number]
[2019-09-22] MEDS ORDERED: ONDANSETRON 4 MG/2 ML VIAL IVP STA (21:23)
[2019-09-22] MEDS ORDERED: fentaNYL 100 MCG/2 ML VIAL IVP STA (21:23)
[2019-09-22] MEDS ORDERED: IOVERSOL 320 100 ML VIAL IVP ONE ×2 (21:24→22:34)
[2019-09-22 22:16] VITALS: BP 123/63
[2019-09-22 22:18] LABS: BILIRUBIN,URINE NEGATIVE (NEGATIVE); GLUCOSE, URINE (UA) NEGATIVE (NEGATIVE); KETONES,URINE (UA) NEGATIVE (NEGATIVE); LEUKOCYTE ESTERASE, URINE NEGATIVE (NEGATIVE); NITRITE,URINE NEGATIVE (NEGATIVE); OCCULT BLOOD,URINE NEGATIVE (NEGATIVE); PH,URINE 5.5 PH (5.0-7.5); PROTEIN,URINE NEGATIVE (NEGATIVE); UROBILINOGEN,URINE 0.2 (NORMAL) E.U./dL (NORMAL)
[2019-09-22 22:20] LABS: CLARITY,URINE CLEAR (CLEAR)
--- NOTE | 2019-09-23 07:55 | CT Report ---
Reason: post biliary drain fever Procedure Date: 09/22/2019 Accession Number: [id number] / [id number] Procedure: CT - Abdomen/Pelvis W CPT Code: Final Report FULL RESULT: PROCEDURE: Abdomen/Pelvis W INDICATIONS: post biliary drain fever CONTRAST: IV CONTRAST: Optiray 320 ml: 100 PO CONTRAST: *NO PO CONTRAST TECHNIQUE: After the administration of oral and intravenous contrast, 5 mm thick sections acquired from the diaphragms to the symphysis. 5 mm thick coronal and sagittal reformats were acquired. For radiation dose reduction, the following was used: automated exposure control, adjustment of mA and/or kV according to patient size. COMPARISON: 02/10/2019. FINDINGS: Image quality: Excellent. ABDOMEN: Lung bases: Lung bases are clear. Heart size is normal. Solid organs: Interval placement of a left transhepatic percutaneous internal and external biliary drain, which extends into the duodenum. The biliary tree has been decompressed. Liver and spleen are normal in size and enhancement. Gallbladder wall is thickened, increased from the previous study, with questionable wall edema. Biliary system is non dilated. There has been interval increase in fatty replacement of the pancreas. There is inflammatory change in the surrounding fat. Consider acute pancreatitis. No adrenal nodules. Kidneys demonstrate normal size and enhancement, without hydronephrosis. Peritoneum and bowel: Bowel loops demonstrate normal wall thickness and caliber. No free fluid or air. Nodes and vessels: A single enlarged peripancreatic lymph node is mildly more prominent than on the previous study. Reference image 27/3. It measures 1.6 x 2.3 cm. It had similar measurements on previous image 24/3. However, it is more dense than previously. No retroperitoneal or mesenteric adenopathy by size criteria. Aorta and inferior vena cava are normal in size. Extensive atherosclerotic calcifications in the aorta. Miscellaneous: No ventral hernias. PELVIS: Genitourinary: Bladder wall thickness is normal. Miscellaneous: No inguinal hernias or adenopathy. Uterus is surgically absent. Bones: No suspicious bony lesions. No vertebral body compression fractures. Multilevel lumbosacral fusion. IMPRESSION: 1. Interval placement of a percutaneous biliary drain with decompression of the biliary tree. 2. Development of increased gallbladder wall thickening and questionable wall edema. Consider acute cholecystitis versus ascending cholangitis. 3. Interval increase in fatty atrophy in the pancreas. Question changes of acute pancreatitis. 4. Single enlarged peripancreatic lymph node. A preliminary report with the above findings was provided at the time of the study by [facility]. Reviewed by: Edwin Bell MD on 09/23/2019 7:54 AM PDT Approved by: Edwin Bell MD on 09/23/2019 7:54 AM PDT Station ID: [id number]
== END 2019-09-22 23:45 | disposition left against medical advice (07) ==
LOC: ED 20:12
DX: K83.1 Obstruction of bile duct (principal); Z98.890 Other specified postprocedural states; R74.8 Abnormal levels of other serum enzymes; R00.0 Tachycardia, unspecified; E11.9 Type 2 diabetes mellitus without complications; Z79.4 Long term (current) use of insulin; Z79.82 Long term (current) use of aspirin
CPT/HCPCS: 36415; 71045; 74177; 80048; 80076; 81003; 82550; 83605; 83690; 83880; 84484; 85025; 85610; 85730; 87040; 93005; 96361; 96365; 96375; 99284; Q9967; 81001; 87086

== ENCOUNTER 2019-09-26 18:16 | Emergency (ER) | payer MEDICARE, OTHER ==
[2019-09-26] MEDS ORDERED: SODIUM CHLORIDE 0.9% 1,000 ML IV STA ×3 (18:44→21:07)
[2019-09-26 19:09] LABS: BASOPHILS # (AUTO) 0.1 10^3/uL (0.0-0.1); BASOPHILS % (AUTO) 0.6 %; EOSINOPHILS # (AUTO) 0.2 10^3/uL (0.0-0.7); EOSINOPHILS % (AUTO) 1.7 %; HGB - HEMOGLOBIN 16.6 g/dL (12.0-16.0); LYMPHOCYTES # (AUTO) 1.7 10^3/uL (1.5-3.5); LYMPHOCYTES % (AUTO) 13.3 %; MEAN CORPUSCULAR HEMOGLOBIN 29.8 pg (27.0-31.0); MEAN CORPUSCULAR HGB CONC 35.1 g/dL (32.0-36.0); MEAN CORPUSCULAR VOLUME 84.9 fL (81.0-99.0); MEAN PLATELET VOLUME 10.6 fL (7.9-10.8); MONOCYTES # (AUTO) 1.1 10^3/uL (0.0-1.0); MONOCYTES % (AUTO) 9.1 %; NEUTROPHILS # (AUTO) 9.3 10^3/uL (1.5-6.6); NEUTROPHILS % (AUTO) 74.7 %; PLT - PLATELET COUNT 303 10^3/uL (130-450); RED BLOOD COUNT 5.57 10^6/uL (4.20-5.40); RED CELL DISTRIBUTION WIDTH 13.6 % (12.0-15.0); WHITE BLOOD COUNT 12.5 x10^3/uL (4.8-10.8)
--- NOTE | 2019-09-26 19:11 | ED Physician Documentation ---
History of Present Illness - Stated complaint Stated Complaint: POST OP - MUSCLE CRAMPS, DEHYDRATED - Chief complaint Chief Complaint: General - History obtained from History obtained from: Patient, Family - History of Present Illness Timing: Today Pain level max: 0 Pain level now: 0 - Additonal information Additional information: 74-year-old female presents to the emergency department stating that she had a biliary drain placed 4 days ago at [facility] in [place]. She does not know why this was placed. She states that she has a history of lymphoma but finished her chemotherapy and does not have any further cancer. She states that she had a fever that night, was seen in the emergency department and refused transport to [facility] in [place]. She states she has had significant drainage into the bag from her drain. She states that she has had a T-max of 99 at home. Chronic nausea. No vomiting. No diarrhea. No constipation. No cough. Nothing makes it better or worse. Today she was having generalized cramping. She feels like she is dehydrated. Review of Systems Ten Systems: 10 systems reviewed and negative Constitutional: reports: Fever (T-max 99). 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 Cardiovascular: Cardiac catheterization HEENT: Cataracts, Tonsil/Adenoidectomy - Present Medications Home Medications: Ambulatory Orders Medication Instructions Recorded Confirmed Docusate Sodium 100 mg PO BID 02/14/15 02/15/15 Febuxostat [Uloric] 40 mg PO DAILY 02/14/15 02/15/15 Insulin Lispro [Humalog] 15 unit SUBQ TIDACHS 02/14/15 02/15/15 Insulin NPH Human Isophane 24 unit DAILY 02/14/15 02/14/15 [Humulin N] Insulin NPH Human Isophane 74 unit QPM 02/14/15 02/14/15 [Humulin N] Methocarbamol [Robaxin-750] 1 tab PO DAILY PRN 02/14/15 02/15/15 Metoclopramide [Reglan] 10 mg PO BIDAC 02/14/15 02/15/15 Metoprolol Tartrate 25 mg DAILY 02/14/15 02/14/15 Moxide 02/14/15 02/14/15 Multivitamin [Multivitamins] 1 tab DAILY 02/14/15 02/14/15 Nortriptyline [Pamelor] 50 mg QPM 02/14/15 02/14/15 Pantoprazole [Protonix] 40 mg BID 02/14/15 02/14/15 Pravastatin Sodium 20 mg PO Q48H 02/14/15 02/15/15 Tumeric 500 mg PO DAILY 02/14/15 02/15/15 metFORMIN [Glucophage] 1,000 mg BID 02/14/15 02/14/15 oxyCODONE ER [OxyCONTIN] 20 mg BID 02/14/15 02/14/15 oxyCODONE [Roxicodone] 20 mg PO QID 02/14/15 02/15/15 Albuterol [Ventolin Hfa] 1 - 2 puffs INH Q4H PRN 02/15/15 02/15/15 Aspirin [Aspirin EC] 325 mg PO DAILY 02/15/15 02/15/15 Triamterene/Hydrochlorothiazid 1 tab PO DAILY 02/15/15 02/15/15 [Triamterene-Hctz 75-50 mg Tab] Peg 3350/Na Sulf,Bicarb,Cl/KCl 4,000 ml PO ONCE #1 bottle 01/10/18 [Golytely] Doxycycline Hyclate 100 mg PO BID #10 capsule 01/15/18 Lactulose [Generlac] 10 gm PO Q6H PRN #300 ml 02/10/19 Metoclopramide [Reglan] 10 mg PO Q6H PRN #20 tablet 02/10/19 - Allergies Allergies/Adverse Reactions: Allergies Allergy/AdvReac Type Severity Reaction Status Date / Time Cephalosporins Allergy Rash Verified 09/22/19 20:26 codeine Allergy Itching Verified 09/22/19 20:26 colchicine Allergy Rash Verified 09/22/19 20:26 hydromorphone Allergy Unknown Verified 09/22/19 20:26 Penicillins Allergy Anaphylaxis Verified 09/26/19 18:24 Sulfa (Sulfonamide Allergy Anaphylaxis Verified 09/26/19 18:24 Antibiotics) tuberculin,PPD,multi-puncture Allergy Unknown Verified 09/26/19 18:24 vancomycin Allergy Itching Verified 09/26/19 18:24 adhesive tape AdvReac Intermediate Irritation Verified 09/26/19 18:24 (Paper tape OK) allopurinol AdvReac Rash Verified 09/26/19 18:24 aspartame AdvReac Respiratory Verified 09/26/19 18:24 broccoli AdvReac Unknown Verified 09/26/19 18:24 gabapentin AdvReac Unknown Verified 09/26/19 18:24 NSAIDS (Non-Steroidal AdvReac Unknown Verified 09/26/19 18:24 Anti-Inflamma calcium silicate Allergy Unknown Uncoded 09/26/19 18:24 MSG Allergy Unknown Uncoded 09/26/19 18:24 - Social History Does the pt smoke?: No Smoking Status: Never smoker Does the pt drink ETOH?: No Does the pt have substance abuse?: No - Immunizations Immunizations are current?: Yes - POLST Patient has POLST: No PD ED PE NORMAL - Vitals Vital signs reviewed: Yes - General General: Alert and oriented X 3, No acute distress, Well developed/nourished - HEENT HEENT: PERRL, Other (Dry lips and tongue) - Neck Neck: Supple, no meningeal sign - Cardiac Cardiac: RRR, Strong equal pulses - Respiratory Respiratory: No respiratory distress, Clear bilaterally - Abdomen Abdomen: Soft, Non tender, Non distended, Other (Biliary drain in place. Draining bilious fluid into the bag. No signs of infection) - Back Back: No CVA TTP, No spinal TTP - Derm Derm: Warm and dry - Extremities Extremities: No edema, No calf tenderness / cord - Neuro Neuro: Alert and oriented X 3 - Psych Psych: Normal mood, Normal affect Results - Vitals Vitals: Vital Signs - 24 hr 09/26/19 09/26/19 09/26/19 18:24 18:36 20:35 Temperature 36.6 C 36.6 C Heart Rate 108 H 108 H 96 Respiratory 14 16 16 Rate Blood Pressure 154/85 H 154/85 H 149/85 H O2 Saturation 100 100 99 Oxygen O2 Source Room air - Labs Labs: Laboratory Tests 09/26/19 09/26/19 19:00 19:00 WBC 12.5 H RBC 5.57 H Hgb 16.6 H Hct 47.3 H MCV 84.9 MCH 29.8 MCHC 35.1 RDW 13.6 Plt Count 303 MPV 10.6 Neut # (Auto) 9.3 H Lymph # (Auto) 1.7 [place] # (Auto) 1.1 H Eos # (Auto) 0.2 Baso # (Auto) 0.1 Absolute Nucleated RBC 0.00 Nucleated RBC % 0.0 Sodium 123 L Potassium 4.3 Chloride 83 L Carbon Dioxide 22 Anion Gap 18.0 H BUN 62 H Creatinine 1.2 H Estimated GFR (MDRD) 44 L Glucose 406 H Calcium 9.6 Phosphorus 5.0 H Magnesium 2.0 Total Bilirubin 1.5 H AST 22 ALT 22 Alkaline Phosphatase 239 H Total Protein 9.0 H Albumin 3.9 Globulin 5.1 H Albumin/Globulin Ratio 0.8 L Lipase 26 PD MEDICAL DECISION MAKING - ED course Complexity details: reviewed old records, reviewed results, re-evaluated patient, considered differential, d/w patient, d/w family ED course: Patient feels much better after IV fluids. Blood sugar decreased with IV fluids and insulin. She refuses observation in the hospital. She will follow-up closely with her doctor for repeat laboratory testing. Patient is well- appearing, nontoxic. Afebrile. Patient counseled regarding signs and symptoms for which I believe and urgent re-evaluation would be necessary. Patient with good understanding of and agreement to plan and is comfortable going home at this time This document was made in part using voice recognition software. While efforts are made to proofread this document, sound alike and grammatical errors may occur. Departure - Departure Disposition: 01 Home, Self Care Clinical Impression: Dehydration, Hyperglycemia Condition: Good Instructions: ED Dehydration Follow-Up: La Nena Hensley PA-C [Primary Care Provider] - Within 3 Days Comments: Return if you worsen. Follow up with your doctor within 2 days for recheck of y our labs. You need your electrolytes rechecked.
[2019-09-26 19:24] LABS: ALBUMIN 3.9 g/dL (3.2-5.5); ALBUMIN/GLOBULIN RATIO 0.8 (1.0-2.2); BILIRUBIN,TOTAL 1.5 mg/dL (0.2-1.0); CALCIUM 9.6 mg/dL (8.5-10.3); CREATININE 1.2 mg/dL (0.4-1.0)
[2019-09-26] MEDS ORDERED: INSULIN REGULAR HUMAN 100 UNIT/1 ML 10 ML MDV SUBQ STA (19:41)
[2019-09-26] MEDS: SODIUM CHLORIDE 0.9% 1,000 ML IV STA ×2 (20:27→21:51)
[2019-09-26 22:00] VITALS: BP 140/80
== END 2019-09-26 21:58 | disposition home or self-care (01) ==
LOC: ED 18:16
DX: E86.0 Dehydration (principal); E11.65 Type 2 diabetes mellitus with hyperglycemia; Z79.4 Long term (current) use of insulin; Z85.72 Personal history of non-Hodgkin lymphomas; Z79.82 Long term (current) use of aspirin
CPT/HCPCS: 36415; 80053; 83690; 83735; 84100; 85025; 96360; 99283; 99284; J1815

== ENCOUNTER 2019-10-22 10:30 | Outpatient (CLI) | payer MEDICARE, OTHER ==
[2019-10-22 14:20] LABS: BASOPHILS % (AUTO) 0.5 %; EOSINOPHILS # (AUTO) 0.2 10^3/uL (0.0-0.7); EOSINOPHILS % (AUTO) 3.1 %; HGB - HEMOGLOBIN 12.4 g/dL (12.0-16.0); LYMPHOCYTES # (AUTO) 1.9 10^3/uL (1.5-3.5); LYMPHOCYTES % (AUTO) 28.7 %; MEAN CORPUSCULAR HEMOGLOBIN 29.6 pg (27.0-31.0); MEAN CORPUSCULAR HGB CONC 32.2 g/dL (32.0-36.0); MEAN CORPUSCULAR VOLUME 91.9 fL (81.0-99.0); MEAN PLATELET VOLUME 10.6 fL (7.9-10.8); MONOCYTES # (AUTO) 0.8 10^3/uL (0.0-1.0); MONOCYTES % (AUTO) 12.7 %; NEUTROPHILS # (AUTO) 3.5 10^3/uL (1.5-6.6); NEUTROPHILS % (AUTO) 54.7 %; PLT - PLATELET COUNT 232 10^3/uL (130-450); RED BLOOD COUNT 4.19 10^6/uL (4.20-5.40); RED CELL DISTRIBUTION WIDTH 14.1 % (12.0-15.0); WHITE BLOOD COUNT 6.4 x10^3/uL (4.8-10.8)
[2019-10-22 14:52] LABS: ALBUMIN 3.8 g/dL (3.2-5.5); ALBUMIN/GLOBULIN RATIO 1.1 (1.0-2.2); BILIRUBIN,TOTAL 0.7 mg/dL (0.2-1.0); CALCIUM 8.9 mg/dL (8.5-10.3); CREATININE 0.6 mg/dL (0.4-1.0); CRP - C-REACTIVE PROTEIN 4.8 mg/dL (0-1.0); TOTAL PROTEIN 7.4 g/dL (6.7-8.2)
== END 2019-10-22 23:59 | disposition home or self-care (01) ==
LOC: LAB.S 10:30
PROVIDERS: ATTEND Physician Assistant
DX: R50.9 Fever, unspecified (principal)
CPT/HCPCS: 36415; 80053; 83690; 85025; 86140; 87077; 87086; 87181

== ENCOUNTER 2019-11-11 11:16 | Outpatient (CLI) | payer MEDICARE, OTHER ==
[2019-11-11 15:48] LABS: BILIRUBIN,URINE NEGATIVE (NEGATIVE); GLUCOSE, URINE (UA) NEGATIVE (NEGATIVE); KETONES,URINE (UA) NEGATIVE (NEGATIVE); LEUKOCYTE ESTERASE, URINE NEGATIVE (NEGATIVE); NITRITE,URINE NEGATIVE (NEGATIVE); OCCULT BLOOD,URINE NEGATIVE (NEGATIVE); PH,URINE 5.5 PH (5.0-7.5); PROTEIN,URINE NEGATIVE (NEGATIVE); UROBILINOGEN,URINE 0.2 (NORMAL) E.U./dL (NORMAL)
[2019-11-11 16:01] LABS: BACTERIA,URINE None Seen /HPF (None Seen); CLARITY,URINE CLEAR (CLEAR); CRYSTALS,URINE >50 Calcium Oxalate /LPF; RBC,URINE None Seen /HPF (0-5); SQUAMOUS EPITHELIAL CELL,UR NONE SEEN (<= Few)
== END 2019-11-11 11:17 | disposition home or self-care (01) ==
LOC: LAB.S 11:16
PROVIDERS: ATTEND Physician Assistant
DX: N39.0 Urinary tract infection, site not specified (principal)
CPT/HCPCS: 81001; 87086

== ENCOUNTER 2020-02-09 10:16 | Outpatient (CLI) | payer MEDICARE, OTHER ==
[2020-02-09 15:49] LABS: BASOPHILS % (AUTO) 0.3 %; EOSINOPHILS # (AUTO) 0.2 10^3/uL (0.0-0.7); EOSINOPHILS % (AUTO) 3.1 %; HGB - HEMOGLOBIN 11.9 g/dL (12.0-16.0); LYMPHOCYTES # (AUTO) 1.8 10^3/uL (1.5-3.5); LYMPHOCYTES % (AUTO) 30.9 %; MEAN CORPUSCULAR HGB CONC 31.4 g/dL (32.0-36.0); MEAN CORPUSCULAR VOLUME 92.2 fL (81.0-99.0); MEAN PLATELET VOLUME 10.8 fL (7.9-10.8); MONOCYTES # (AUTO) 0.4 10^3/uL (0.0-1.0); MONOCYTES % (AUTO) 7.4 %; NEUTROPHILS # (AUTO) 3.4 10^3/uL (1.5-6.6); NEUTROPHILS % (AUTO) 58.1 %; PLT - PLATELET COUNT 156 10^3/uL (130-450); RED BLOOD COUNT 4.11 10^6/uL (4.20-5.40); RED CELL DISTRIBUTION WIDTH 13.9 % (12.0-15.0); WHITE BLOOD COUNT 5.8 x10^3/uL (4.8-10.8)
[2020-02-09 15:52] LABS: ALBUMIN 3.8 g/dL (3.2-5.5); ALBUMIN/GLOBULIN RATIO 1.2 (1.0-2.2); BILIRUBIN,TOTAL 0.3 mg/dL (0.2-1.0); CALCIUM 9.2 mg/dL (8.5-10.3); CREATININE 0.7 mg/dL (0.4-1.0)
== END 2020-02-09 10:17 | disposition home or self-care (01) ==
LOC: LAB.S 10:16
PROVIDERS: ATTEND Internal Medicine
DX: C83.33 Diffuse large B-cell lymphoma, intra-abdominal lymph nodes (principal)
CPT/HCPCS: 36415; 80053; 85025

== ENCOUNTER 2020-03-05 18:30 | Outpatient (CLI) | payer MEDICARE, OTHER | END 2020-03-05 18:31 | disposition critical access hospital (66) | LOC: EMS 18:30 | PROVIDERS: ATTEND Surgery | DX: R07.9 Chest pain, unspecified (principal) | CPT/HCPCS: A0425; A0427 ==

== ENCOUNTER 2020-03-05 18:53 | Emergency (ER) | payer MEDICARE, OTHER ==
[2020-03-05] MEDS ORDERED: NITROGLYCERIN SL 0.4 MG TABLET SL STA (19:07)
--- NOTE | 2020-03-05 19:09 | ED Physician Documentation ---
PD HPI CHEST PAIN - Stated complaint Stated Complaint: CHEST PAIN - History obtained from History obtained from: Patient - Additional information Additional information: 74-year-old woman with history of coronary artery disease, specifically about 15 years ago she had a coronary angiogram and had a blockage but was conservatively and medically managed because of collateral circulation. This evening around 5:30 PM she developed sharp pain under the left clavicle associated with nausea. On arrival she is pain-free. 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 Cardiovascular: Cardiac catheterization HEENT: Cataracts, Tonsil/Adenoidectomy - Present Medications Home Medications: Ambulatory Orders Medication Instructions Recorded Confirmed Insulin NPH Human Isophane 120 unit BID 02/14/15 03/05/20 [Humulin N] Metoprolol Tartrate 25 mg DAILY 02/14/15 03/05/20 Multivitamin [Multivitamins] 1 tab DAILY 02/14/15 03/05/20 Nortriptyline [Pamelor] 50 mg QPM 02/14/15 03/05/20 Tumeric 500 mg PO DAILY 02/14/15 03/05/20 metFORMIN [Glucophage] 500 mg BID 02/14/15 03/05/20 oxyCODONE [Roxicodone] 10 mg PO BID 02/14/15 03/05/20 Triamterene/Hydrochlorothiazid 1 tab PO DAILY 02/15/15 03/05/20 [Triamterene-Hctz 75-50 mg Tab] Metoclopramide [Reglan] 10 mg PO Q6H PRN #20 tablet 02/10/19 03/05/20 Acetaminophen/Cod 300/30 [Tylenol DAILY 03/05/20 #3] Cholecalciferol [Vitamin D3] DAILY 03/05/20 Melatonin/Pyridoxine [Melatonin 5 HS 03/05/20 mg Tablet] Morphine Sulfate [Ms Contin] 15 mg TID 03/05/20 03/05/20 Naproxen Sodium [Aleve] 220 mg PO HS 03/05/20 03/05/20 Omeprazole 20 mg DAILY 03/05/20 03/05/20 Rosuvastatin Calcium [Crestor] 5 HS 03/05/20 - Allergies Allergies/Adverse Reactions: Allergies Allergy/AdvReac Type Severity Reaction Status Date / Time Cephalosporins Allergy Rash Verified 09/22/19 20:26 codeine Allergy Itching Verified 09/22/19 20:26 colchicine Allergy Rash Verified 09/22/19 20:26 hydromorphone Allergy Unknown Verified 09/22/19 20:26 Penicillins Allergy Anaphylaxis Verified 03/05/20 19:10 Sulfa (Sulfonamide Allergy Anaphylaxis Verified 03/05/20 19:10 Antibiotics) tuberculin,PPD,multi-puncture Allergy Unknown Verified 03/05/20 19:10 vancomycin Allergy Itching Verified 03/05/20 19:10 adhesive tape AdvReac Intermediate Irritation Verified 03/05/20 19:10 (Paper tape OK) allopurinol AdvReac Rash Verified 03/05/20 19:10 aspartame AdvReac Respiratory Verified 03/05/20 19:10 broccoli AdvReac Unknown Verified 03/05/20 19:10 gabapentin AdvReac Unknown Verified 03/05/20 19:10 NSAIDS (Non-Steroidal AdvReac Unknown Verified 03/05/20 19:10 Anti-Inflamma calcium silicate Allergy Unknown Uncoded 03/05/20 19:10 MSG Allergy Unknown Uncoded 03/05/20 19:10 - Social History Does the pt smoke?: No Smoking Status: Never smoker Does the pt drink ETOH?: No Does the pt have substance abuse?: No - Immunizations Immunizations are current?: Yes - POLST Patient has POLST: No PD ED PE NORMAL - Vitals Vital signs reviewed: Yes - General General: Alert and oriented X 3, No acute distress - HEENT HEENT: PERRL, EOMI - Neck Neck: Supple, no meningeal sign, No bony TTP - Cardiac Cardiac: RRR (Subtle systolic murmur heard best at the right upper sternal border) - Respiratory Respiratory: No respiratory distress, Clear bilaterally - Abdomen Abdomen: Non tender - Back Back: No CVA TTP, No spinal TTP - Derm Derm: Normal color, Warm and dry - Extremities Extremities: No edema, No calf tenderness / cord - Neuro Neuro: Alert and oriented X 3, Normal speech Results - Vitals Vitals: Vital Signs - 24 hr 03/05/20 03/05/20 03/05/20 18:55 19:46 21:13 Temperature 37.0 C 36.8 C Heart Rate 91 85 85 Respiratory 13 14 12 Rate Blood Pressure 144/74 H 124/60 120/54 L O2 Saturation 97 98 98 Oxygen O2 Source Room air - EKG (time done) 1858 Rate: Rate (enter#) (96) Rhythm: NSR [place]: Normal Intervals: Normal [place] QRS: Normal Ischemia: Non specific changes Computer interpretation: Agree with computer 1902 Rate: Rate (enter#) (91) Rhythm: NSR [place]: Normal Intervals: Normal [place] QRS: Normal Ischemia: Non specific changes Compare to prior EKG: Unchanged from prior EKG (Shortly after arrival in the initial EKG the pain recurred, repeat EKG was done and was no change from the first.) - Labs Labs: Laboratory Tests 03/05/20 03/05/20 03/05/20 19:30 19:30 19:30 WBC 6.0 RBC 4.07 L Hgb 12.1 Hct 36.5 L MCV 89.7 MCH 29.7 MCHC 33.2 RDW 13.0 Plt Count 146 MPV 9.9 Neut # (Auto) 3.2 Lymph # (Auto) 2.0 [place] # (Auto) 0.5 Eos # (Auto) 0.2 Baso # (Auto) 0.0 Absolute Nucleated RBC 0.00 Nucleated RBC % 0.0 Sodium 141 Potassium 3.3 L Chloride 102 Carbon Dioxide 25 Anion Gap 14.0 H BUN 13 Creatinine 0.6 Estimated GFR (MDRD) 98 Glucose 192 H Calcium 9.3 Total Bilirubin 0.4 AST 23 ALT 19 Alkaline Phosphatase 87 Troponin I High Sens 4.4 Total Protein 7.1 Albumin 3.7 Globulin 3.4 Albumin/Globulin Ratio 1.1 Lipase 16 L 03/05/20 21:00 WBC RBC Hgb Hct MCV MCH MCHC RDW Plt Count MPV Neut # (Auto) Lymph # (Auto) [place] # (Auto) Eos # (Auto) Baso # (Auto) Absolute Nucleated RBC Nucleated RBC % Sodium Potassium Chloride Carbon Dioxide Anion Gap BUN Creatinine Estimated GFR (MDRD) Glucose Calcium Total Bilirubin AST ALT Alkaline Phosphatase Troponin I High Sens 4.1 Total Protein Albumin Globulin Albumin/Globulin Ratio Lipase - Rads (name of study) 1v Chest Radiology: EMP read contemporaneously (NAD) PD MEDICAL DECISION MAKING - ED course ED course: HEART Score 4 I recommended observation and stress testing. Patient did not want to spend the night in the hospital and as such we will do a second troponin after couple of hours but she does understand there is some slight risk associated with this approach. Departure - Departure Disposition: 01 Home, Self Care Clinical Impression: Chest pain Qualifiers: Chest pain type: unspecified Qualified Code(s): R07.9 - Chest pain, unspecified Condition: Good Record reviewed to determine appropriate education?: Yes Instructions: ED Chest Pain Atypical Unkn Cause Comments: Call your doctor tomorrow and arrange for the next available follow-up appointment. Return if worsening. Continue current medications.
[2020-03-05 19:50] LABS: BASOPHILS % (AUTO) 0.5 %; EOSINOPHILS # (AUTO) 0.2 10^3/uL (0.0-0.7); EOSINOPHILS % (AUTO) 3.7 %; HGB - HEMOGLOBIN 12.1 g/dL (12.0-16.0); LYMPHOCYTES % (AUTO) 32.9 %; MEAN CORPUSCULAR HEMOGLOBIN 29.7 pg (27.0-31.0); MEAN CORPUSCULAR HGB CONC 33.2 g/dL (32.0-36.0); MEAN CORPUSCULAR VOLUME 89.7 fL (81.0-99.0); MEAN PLATELET VOLUME 9.9 fL (7.9-10.8); MONOCYTES # (AUTO) 0.5 10^3/uL (0.0-1.0); MONOCYTES % (AUTO) 8.7 %; NEUTROPHILS # (AUTO) 3.2 10^3/uL (1.5-6.6); PLT - PLATELET COUNT 146 10^3/uL (130-450); RED BLOOD COUNT 4.07 10^6/uL (4.20-5.40)
[2020-03-05 20:04] LABS: ALBUMIN 3.7 g/dL (3.2-5.5); ALBUMIN/GLOBULIN RATIO 1.1 (1.0-2.2); BILIRUBIN,TOTAL 0.4 mg/dL (0.2-1.0); CALCIUM 9.3 mg/dL (8.5-10.3); CREATININE 0.6 mg/dL (0.4-1.0); TOTAL PROTEIN 7.1 g/dL (6.7-8.2)
--- NOTE | 2020-03-05 20:17 | XRAY Report ---
PROCEDURE: Chest 1 View X-Ray INDICATIONS: Chest Pain TECHNIQUE: One view of the chest was acquired. COMPARISON: 09/22/2019 FINDINGS: Surgical changes and devices: Anterior lower cervical spine fusion.. Lungs and pleura: No pleural effusions or pneumothorax. Lungs are mildly hyperinflated but clear. Mediastinum: Mediastinal contours appear normal. Heart size is normal. Bones and chest wall: No suspicious bony lesions. Overlying soft tissues appear unremarkable. IMPRESSION: Mild, chronic hyperinflation. Otherwise clear lungs. Reviewed by: Christina Mccray MD on 03/05/2020 8:16 PM PST Approved by: Christina Mccray MD on 03/05/2020 8:16 PM PST Station ID: [id number]
[2020-03-05 22:01] VITALS: BP 134/60
== END 2020-03-05 22:01 | disposition home or self-care (01) ==
LOC: EDUNIT# → ED 18:53
DX: R07.9 Chest pain, unspecified (principal); I49.1 Atrial premature depolarization; Z86.79 Personal history of other diseases of the circulatory system; Z98.61 Coronary angioplasty status; E11.9 Type 2 diabetes mellitus without complications; Z79.4 Long term (current) use of insulin; Z79.01 Long term (current) use of anticoagulants
CPT/HCPCS: 36415; 71045; 80053; 83690; 84484; 85025; 93005; 99284; 99285; A9270

== ENCOUNTER 2020-07-03 10:30 | Outpatient (CLI) | payer MEDICARE, OTHER ==
[2020-07-03 10:46] LABS: BASOPHILS % (AUTO) 0.7 %; EOSINOPHILS # (AUTO) 0.2 10^3/uL (0.0-0.7); EOSINOPHILS % (AUTO) 4.8 %; HCT - HEMATOCRIT 37.6 % (37.0-47.0); HGB - HEMOGLOBIN 12.3 g/dL (12.0-16.0); LYMPHOCYTES % (AUTO) 22.4 %; MEAN CORPUSCULAR HEMOGLOBIN 30.4 pg (27.0-31.0); MEAN CORPUSCULAR HGB CONC 32.7 g/dL (32.0-36.0); MEAN CORPUSCULAR VOLUME 92.8 fL (81.0-99.0); MEAN PLATELET VOLUME 10.3 fL (7.9-10.8); MONOCYTES # (AUTO) 0.5 10^3/uL (0.0-1.0); MONOCYTES % (AUTO) 10.2 %; NEUTROPHILS # (AUTO) 2.8 10^3/uL (1.5-6.6); NEUTROPHILS % (AUTO) 61.7 %; PLT - PLATELET COUNT 218 10^3/uL (130-450); RED BLOOD COUNT 4.05 10^6/uL (4.20-5.40); RED CELL DISTRIBUTION WIDTH 13.5 % (12.0-15.0); WHITE BLOOD COUNT 4.6 x10^3/uL (4.8-10.8)
[2020-07-03 11:05] LABS: ALBUMIN 3.4 g/dL (3.2-5.5); ALBUMIN/GLOBULIN RATIO 0.8 (1.0-2.2); BILIRUBIN,TOTAL 1.6 mg/dL (0.2-1.0); CREATININE 0.8 mg/dL (0.4-1.0); TOTAL PROTEIN 7.7 g/dL (6.7-8.2)
== END 2020-07-03 10:31 | disposition home or self-care (01) ==
LOC: LAB 10:30
PROVIDERS: ATTEND Internal Medicine Gastroenterology
DX: K83.1 Obstruction of bile duct (principal)
CPT/HCPCS: 36415; 80053; 85025

== ENCOUNTER 2020-07-06 08:54 | Outpatient (CLI) | payer MEDICARE, OTHER ==
[2020-07-06 09:21] LABS: ALBUMIN 3.2 g/dL (3.2-5.5); ALBUMIN/GLOBULIN RATIO 0.7 (1.0-2.2); BILIRUBIN,TOTAL 1.1 mg/dL (0.2-1.0); CALCIUM 9.3 mg/dL (8.5-10.3); CREATININE 0.7 mg/dL (0.4-1.0); POTASSIUM 3.1 mmol/L (3.5-5.0); TOTAL PROTEIN 7.6 g/dL (6.7-8.2)
--- NOTE | 2020-07-07 16:32 | CT Report ---
PROCEDURE: Abdomen/Pelvis W INDICATIONS: BILE DUCT STRICTURE CONTRAST: IV CONTRAST: Optiray 320 ml: 100 PO CONTRAST: Isovue 300 ml50 TECHNIQUE: After the administration of oral and IV contrast, 5 mm thick sections acquired from the diaphragms to the symphysis. 5 mm thick coronal and sagittal reformats were acquired. For radiation dose reducti on, the following was used: automated exposure control, adjustment of mA and/or kV according to margi ent size. COMPARISON: 09/22/2019 FINDINGS: Image quality: Excellent. ABDOMEN: Lung bases: Lung bases are clear. Heart size is normal. There is mitral annular calcification. Solid organs: There is an indwelling biliary common duct stent present, though there is persistent c ommon duct dilatation up to 16 mm, stable. There is moderate intrahepatic biliary dilatation and pneu mobilia which is expected with the stent in place. No discrete liver lesions. The gallbladder is dist ended but demonstrates normal wall thickness and no pericholecystic inflammation. There is slight wal l thickening along the fundus, nonspecific. The spleen is at the upper limits of normal in size. The pancreas is atrophic and there are no surrou nding inflammatory changes. No adrenal nodules. Normal kidneys without hydronephrosis or stone. Peritoneum and bowel: Bowel loops demonstrate normal wall thickness and caliber. Increased quantity of solid stool present throughout the colon. No free fluid or air. Nodes and vessels: There is a prominent portacaval lymph node which measures 17 mm in short axis, pr eviously about 13 mm. No other retroperitoneal adenopathy. No mesenteric adenopathy by size criteria. Aorta and inferior vena cava are normal in size. Moderate to heavy abdominal aortic calcification. Miscellaneous: No ventral hernias. PELVIS: Genitourinary: The urinary bladder is decompressed. The uterus is absent. Miscellaneous: No inguinal hernias or adenopathy. Mild pelvic floor prolapse in the absence of prov ocation. Bones: No suspicious bony lesions. No vertebral body compression fractures. Deformity of a healed, remote left inferior pubic ramus fracture, degenerative changes at both sacroiliac joints with small erosions on the left. Posterior surgical fusion of the lumbosacral spine. IMPRESSION: 1. Indwelling biliary stent in place, but without decrease in extent of biliary dilatation. Interval removal of internal/external biliary stent. 2. Distended gallbladder but without suspicious wall thickening. 3. Fatty atrophy of the pancreas with resolution of peripancreatic inflammatory change. 4. Chronic portacaval adenopathy, increased in size but presumed reactive. Reviewed by: Christina Mccray MD on 07/07/2020 4:30 PM PDT Approved by: Christina Mccray MD on 07/07/2020 4:30 PM PDT Station ID: [id number]
== END 2020-07-06 08:55 | disposition home or self-care (01) ==
LOC: LAB 08:54
PROVIDERS: ATTEND Obstetrics & Gynecology Reproductive Endocrinology
DX: K83.1 Obstruction of bile duct (principal)
CPT/HCPCS: 36415; 80053

== ENCOUNTER 2020-08-23 13:36 | Outpatient (CLI) | payer MEDICARE, OTHER ==
[2020-08-23 20:00] LABS: BASOPHILS % (AUTO) 0.5 %; EOSINOPHILS # (AUTO) 0.2 10^3/uL (0.0-0.7); EOSINOPHILS % (AUTO) 2.9 %; HCT - HEMATOCRIT 38.3 % (37.0-47.0); HGB - HEMOGLOBIN 12.7 g/dL (12.0-16.0); LYMPHOCYTES # (AUTO) 2.2 10^3/uL (1.5-3.5); LYMPHOCYTES % (AUTO) 35.1 %; MEAN CORPUSCULAR HEMOGLOBIN 29.9 pg (27.0-31.0); MEAN CORPUSCULAR HGB CONC 33.2 g/dL (32.0-36.0); MEAN CORPUSCULAR VOLUME 90.1 fL (81.0-99.0); MEAN PLATELET VOLUME 11.3 fL (7.9-10.8); MONOCYTES # (AUTO) 0.4 10^3/uL (0.0-1.0); NEUTROPHILS # (AUTO) 3.4 10^3/uL (1.5-6.6); NEUTROPHILS % (AUTO) 54.3 %; PLT - PLATELET COUNT 162 10^3/uL (130-450); RED BLOOD COUNT 4.25 10^6/uL (4.20-5.40); WHITE BLOOD COUNT 6.2 x10^3/uL (4.8-10.8)
[2020-08-23 20:12] LABS: CREATININE,URINE 221.9 mg/dL; MICROALBUM/CREATININE RATIO,UR 4.1 ug/mg (<30.0); MICROALBUMIN,URINE 0.9 mg/dL (0-300.0)
[2020-08-23 20:14] LABS: ESTIMATED AVERAGE GLUCOSE 117 mg/dL (70-100); HEMOGLOBIN A1c% 5.7 % (4.27-6.07)
[2020-08-23 21:31] LABS: BUN - BLOOD UREA NITROGEN 16 mg/dL (6-20); CALCIUM 8.9 mg/dL (8.5-10.3); CARBON DIOXIDE - CO2 26 mmol/L (21-32); CHLORIDE 104 mmol/L (101-111); CHOL/HDL RATIO 3.2 (<4.4); CHOLESTEROL 127 mg/dL; CREATININE 0.6 mg/dL (0.4-1.0); GFR - MDRD 97 (>89); GLUCOSE 169 mg/dL (70-100); HDL CHOLESTEROL 40 mg/dL; LDL CHOLESTEROL,CALCULATED 49 mg/dL; LDL/HDL RATIO 1.2 (<4.4); POTASSIUM 3.9 mmol/L (3.5-5.0); SODIUM 137 mmol/L (135-145); TRIGLYCERIDES 192 mg/dL; VLDL CHOLESTEROL 38 mg/dL
== END 2020-08-23 13:37 | disposition home or self-care (01) ==
LOC: LAB.S 13:36
PROVIDERS: ATTEND Internal Medicine Endocrinology, Diabetes & Metabolism
DX: E11.42 Type 2 diabetes mellitus with diabetic polyneuropathy (principal); Z79.4 Long term (current) use of insulin; C83.36 Diffuse large B-cell lymphoma, intrapelvic lymph nodes
CPT/HCPCS: 36415; 80048; 80061; 82043; 82570; 83036; 83615; 83721; 85025

== ENCOUNTER 2020-09-15 10:44 | Outpatient (CLI) | payer MEDICARE, OTHER ==
[2020-09-15 11:39] VITALS: BP 117/62
--- NOTE | 2020-09-15 11:39 | SLEEP CARE CONSULTATION ---
Information from patient questionnaire entered by Amanda Noyola. I have reviewed and concur with the information entered by Amanda Noyola. This document represents the service I personally performed and the decisions made by , Indu Agrawal ARNP. History of Present Illness Service Date and Time: 09/15/2020 1044 Previous diagnosis: Severe, Obstructive Sleep Apnea-Hypopnea Syndrome AHI: 56.5 (in 2005) Reason for follow up: annual (last seen 08/2018) Equipment type: CPAP Equipment obtained from: [employer] (Dislike intensly) Mask style: Full face Backup mask available: No (needs supplies) Prior sleep studies: Yes Year and Where: 2005 - [facility] HPI additional information: CANELO MCDUFFIE was diagnosed to have severe, AHI 56.5, obstructive sleep apnea- hypopnea syndrome and returned today for CPAP therapy annual follow-up. She lost 75 pounds from weight watchers. She got lymphoma and lost more weight with cancer diagnosis and treatment. She couldn't wear her CPAP mask because she wear dentures and needs a full face mask that goes over mouth and nose. She states the pressure was also too high and would blow the nasal cushion mask off her face. She has not been able to use the machine for over a year because she needs the right full face mask and supplies. She has a CPAP that is only a few years old. Subjective Current pressure setting perceived as: too high Initial [place] Sleepiness Scale score: 10 (in 2019) Current [place] Sleepiness Scale score: 18 Allergies and Home Medications Home medication list reviewed: Yes (no new meds) Review of Systems Review of systems same as previous: No (lymphoma with chemotherapy) Physical Exam Blood Pressure: 117/62 Cuff size: wrist Heart Rate: 71 O2 Saturation: 97 Height: 5 ft 4 in Weight: 190 lb Body Mass Index: 32.5 BMI Classification: Obese Impression and Plan 1. Obstructive Sleep Apnea-Hypopnea Syndrome, severe, who needs to restart CPAP therapy. Patient would like to transfer her DME care but needs current compliance information before this can be done. She would like to get a full face mask that goes over her nose and mouth instead of the nasal cushion mask. I will write for a mask refitting and update of supplies with current DME Bhavesh. She voiced understanding and agreement with plan. Patient's apnea severity and rationale for treatment to reduce apnea, improve sleep quality and reduce cardiovascular and cerebrovascular events was reviewed. I also reviewed the benefit of consistent device use of CPAP for cardiac disease, cerebrovascular disease, and diabetes. * Restart auto CPAP pressure at 16-18 cmH2O * Mask refitting * Notify me if snoring with mask or feeling that the pressure is too much or too little * Attempt to lose weight * Call this office if any problems using CPAP * Return for follow up in 1-2 months, or sooner if concerns arise Counseling Topics: Weight loss health impact Visit Type: In Office Time Spent with Patient (minutes): 29 Provider Statement: I spent 100% of the Face to Face Visit with the patient with greater than 50% spent counseling the patient and coordination of care.
== END 2020-09-15 10:45 | disposition home or self-care (01) ==
LOC: SC 10:44
PROVIDERS: ATTEND Nurse Practitioner Family
DX: G47.33 Obstructive sleep apnea (adult) (pediatric) (principal); E66.9 Obesity, unspecified; Z68.32 Body mass index [BMI] 32.0-32.9, adult
CPT/HCPCS: 99213; G0463; 99212

== ENCOUNTER 2021-02-14 09:43 | Outpatient (CLI) | payer MEDICARE, OTHER ==
[2021-02-14 15:26] LABS: BASOPHILS % (AUTO) 0.6 %; EOSINOPHILS # (AUTO) 0.2 10^3/uL (0.0-0.7); EOSINOPHILS % (AUTO) 2.5 %; HCT - HEMATOCRIT 40.3 % (37.0-47.0); HGB - HEMOGLOBIN 13.4 g/dL (12.0-16.0); LYMPHOCYTES % (AUTO) 29.6 %; MEAN CORPUSCULAR HEMOGLOBIN 31.5 pg (27.0-31.0); MEAN CORPUSCULAR HGB CONC 33.3 g/dL (32.0-36.0); MEAN CORPUSCULAR VOLUME 94.6 fL (81.0-99.0); MEAN PLATELET VOLUME 10.8 fL (7.9-10.8); MONOCYTES # (AUTO) 0.4 10^3/uL (0.0-1.0); NEUTROPHILS # (AUTO) 4.1 10^3/uL (1.5-6.6); PLT - PLATELET COUNT 176 10^3/uL (130-450); RED BLOOD COUNT 4.26 10^6/uL (4.20-5.40); RED CELL DISTRIBUTION WIDTH 12.9 % (12.0-15.0); WHITE BLOOD COUNT 6.8 x10^3/uL (4.8-10.8)
[2021-02-14 15:46] LABS: ALBUMIN 4.2 g/dL (3.2-5.5); ALBUMIN/GLOBULIN RATIO 1.1 (1.0-2.2); ALKALINE PHOSPHATASE 95 IU/L (42-121); ALT ALANINE AMINOTRANSFERASE 15 IU/L (10-60); AST ASPARTATE AMINOTRANSFERASE 21 IU/L (10-42); BILIRUBIN,TOTAL 0.7 mg/dL (0.2-1.0); BUN - BLOOD UREA NITROGEN 14 mg/dL (6-20); CALCIUM 9.5 mg/dL (8.5-10.3); CARBON DIOXIDE - CO2 28 mmol/L (21-32); CHLORIDE 102 mmol/L (101-111); CHOL/HDL RATIO 3.9 (<4.4); CHOLESTEROL 165 mg/dL; CREATININE 0.7 mg/dL (0.4-1.0); GFR - MDRD 82 (>89); GLUCOSE 118 mg/dL (70-100); HDL CHOLESTEROL 42 mg/dL; LDL CHOLESTEROL,CALCULATED 96 mg/dL; LDL/HDL RATIO 2.3 (<4.4); POTASSIUM 3.9 mmol/L (3.5-5.0); SODIUM 140 mmol/L (135-145); TOTAL PROTEIN 7.9 g/dL (6.7-8.2); TRIGLYCERIDES 136 mg/dL; VLDL CHOLESTEROL 27 mg/dL
[2021-02-14 20:08] LABS: ESTIMATED AVERAGE GLUCOSE 123 mg/dL (70-100); HEMOGLOBIN A1c% 5.9 % (4.27-6.07)
== END 2021-02-14 09:44 | disposition home or self-care (01) ==
LOC: LAB.S 09:43
PROVIDERS: ATTEND Internal Medicine
DX: I10 Essential (primary) hypertension (principal); E11.9 Type 2 diabetes mellitus without complications
CPT/HCPCS: 36415; 80053; 80061; 83036; 83721; 85025

== ENCOUNTER 2021-02-21 09:29 | Outpatient (CLI) | payer MEDICARE, OTHER ==
[2021-02-21 15:08] LABS: BILIRUBIN,URINE NEGATIVE (NEGATIVE); GLUCOSE, URINE (UA) NEGATIVE (NEGATIVE); KETONES,URINE (UA) NEGATIVE (NEGATIVE); LEUKOCYTE ESTERASE, URINE NEGATIVE (NEGATIVE); NITRITE,URINE POSITIVE (NEGATIVE); OCCULT BLOOD,URINE TRACE-INTA (NEGATIVE); PH,URINE 6.5 PH (5.0-7.5); PROTEIN,URINE NEGATIVE (NEGATIVE); UROBILINOGEN,URINE 0.2 (NORMAL) E.U./dL (NORMAL)
[2021-02-21 15:11] LABS: CLARITY,URINE CLEAR (CLEAR)
[2021-02-21 15:53] LABS: BACTERIA,URINE Moderate /HPF (None Seen); RBC,URINE 0-5 /HPF (0-5); SQUAMOUS EPITHELIAL CELL,UR FEW Squamous (<= Few)
[2021-02-21 16:05] LABS: THYROID STIMULATING HORMONE 0.97 uIU/mL (0.34-5.60)
== END 2021-02-21 09:30 | disposition home or self-care (01) ==
LOC: LAB.S 09:29
PROVIDERS: ATTEND Internal Medicine
DX: N31.9 Neuromuscular dysfunction of bladder, unspecified (principal); G62.9 Polyneuropathy, unspecified; E11.9 Type 2 diabetes mellitus without complications; Z79.4 Long term (current) use of insulin
CPT/HCPCS: 36415; 81001; 82607; 82746; 84443; 87086; 87181

== ENCOUNTER 2021-04-24 10:30 | Outpatient (CLI) | payer MEDICARE, OTHER ==
[2021-04-24 16:07] LABS: BILIRUBIN,URINE NEGATIVE (NEGATIVE); GLUCOSE, URINE (UA) NEGATIVE (NEGATIVE); KETONES,URINE (UA) TRACE mg/dL (NEGATIVE); LEUKOCYTE ESTERASE, URINE SMALL (NEGATIVE); NITRITE,URINE POSITIVE (NEGATIVE); OCCULT BLOOD,URINE TRACE-INTA (NEGATIVE); PROTEIN,URINE TRACE mg/dL (NEGATIVE); UROBILINOGEN,URINE 0.2 (NORMAL) E.U./dL (NORMAL)
[2021-04-24 16:20] LABS: CLARITY,URINE HAZY (CLEAR)
[2021-04-24 16:21] LABS: BACTERIA,URINE Many /HPF (None Seen); MUCUS,URINE Few Strands; RBC,URINE 0-5 /HPF (0-5); SQUAMOUS EPITHELIAL CELL,UR RARE Squamous (<= Few); WBC,URINE >25 /HPF (0-5)
[2021-04-24 16:25] LABS: CRYSTALS,URINE 11-25 Ca Oxalate /LPF
[2021-04-25 11:54] LABS: THYROID STIMULATING HORMONE 0.81 uIU/mL (0.34-5.60)
== END 2021-04-24 10:31 | disposition home or self-care (01) ==
LOC: LAB.S 10:30
PROVIDERS: ATTEND Internal Medicine
DX: N31.9 Neuromuscular dysfunction of bladder, unspecified (principal); G62.9 Polyneuropathy, unspecified; R94.6 Abnormal results of thyroid function studies; R82.90 Unspecified abnormal findings in urine
CPT/HCPCS: 36415; 81001; 82607; 82746; 84443; 87086

== ENCOUNTER 2021-06-23 09:51 | Outpatient (CLI) | payer MEDICARE, OTHER ==
[2021-06-23 15:20] LABS: BILIRUBIN,URINE NEGATIVE (NEGATIVE); GLUCOSE, URINE (UA) NEGATIVE (NEGATIVE); KETONES,URINE (UA) NEGATIVE (NEGATIVE); LEUKOCYTE ESTERASE, URINE NEGATIVE (NEGATIVE); NITRITE,URINE POSITIVE (NEGATIVE); OCCULT BLOOD,URINE NEGATIVE (NEGATIVE); PROTEIN,URINE NEGATIVE (NEGATIVE); UROBILINOGEN,URINE 0.2 (NORMAL) E.U./dL (NORMAL)
[2021-06-23 15:30] LABS: CLARITY,URINE HAZY (CLEAR)
[2021-06-23 16:11] LABS: BACTERIA,URINE None Seen /HPF (None Seen); RBC,URINE 0-5 /HPF (0-5); SQUAMOUS EPITHELIAL CELL,UR NONE SEEN (<= Few); WBC,URINE 0-3 /HPF (0-5)
== END 2021-06-23 09:52 | disposition home or self-care (01) ==
LOC: LAB.S 09:51
PROVIDERS: ATTEND Internal Medicine
DX: N30.00 Acute cystitis without hematuria (principal)
CPT/HCPCS: 81001; 87077; 87086; 87181

== ENCOUNTER 2021-10-08 20:10 | Outpatient (CLI) | payer MEDICARE, OTHER ==
[2021-10-08 20:23] LABS: BILIRUBIN,URINE NEGATIVE (NEGATIVE); GLUCOSE, URINE (UA) NEGATIVE (NEGATIVE); KETONES,URINE (UA) NEGATIVE (NEGATIVE); LEUKOCYTE ESTERASE, URINE NEGATIVE (NEGATIVE); NITRITE,URINE NEGATIVE (NEGATIVE); OCCULT BLOOD,URINE NEGATIVE (NEGATIVE); PROTEIN,URINE NEGATIVE (NEGATIVE); UROBILINOGEN,URINE 0.2 (NORMAL) E.U./dL (NORMAL)
[2021-10-08 20:27] LABS: CLARITY,URINE CLEAR (CLEAR)
[2021-10-08 20:37] LABS: BACTERIA,URINE Moderate /HPF (None Seen); RBC,URINE None Seen /HPF (0-5); SQUAMOUS EPITHELIAL CELL,UR RARE Squamous (<= Few); WBC,URINE 0-3 /HPF (0-5)
[2021-10-08 20:38] LABS: CRYSTALS,URINE 6-10 Uric Acid /LPF
== END 2021-10-08 20:11 | disposition home or self-care (01) ==
LOC: LAB 20:10
PROVIDERS: ATTEND Physician Assistant Medical
DX: R35.0 Frequency of micturition (principal)
CPT/HCPCS: 81001; 87086

== ENCOUNTER 2022-02-08 09:53 | Outpatient (CLI) | payer MEDICARE, OTHER | END 2022-02-08 23:59 | disposition short-term general hospital (02) | LOC: EMS 09:53 | DX: R06.09 Other forms of dyspnea (principal); R11.0 Nausea; I49.9 Cardiac arrhythmia, unspecified; M54.9 Dorsalgia, unspecified | CPT/HCPCS: A0425; A0427 ==

== ENCOUNTER 2023-07-28 11:39 | Outpatient (CLI) | payer MEDICARE, OTHER ==
[2023-07-28 14:38] LABS: BASOPHILS # (AUTO) 0.1 10^3/uL (0.0-0.1); BASOPHILS % (AUTO) 0.7 %; EOSINOPHILS # (AUTO) 0.2 10^3/uL (0.0-0.7); EOSINOPHILS % (AUTO) 2.9 %; HGB - HEMOGLOBIN 11.3 g/dL (12.0-16.0); LYMPHOCYTES # (AUTO) 2.1 10^3/uL (1.5-3.5); LYMPHOCYTES % (AUTO) 28.3 %; MEAN CORPUSCULAR HEMOGLOBIN 27.4 pg (27.0-31.0); MEAN CORPUSCULAR HGB CONC 30.5 g/dL (32.0-36.0); MEAN CORPUSCULAR VOLUME 89.6 fL (81.0-99.0); MEAN PLATELET VOLUME 11.2 fL (7.9-10.8); MONOCYTES # (AUTO) 0.6 10^3/uL (0.0-1.0); MONOCYTES % (AUTO) 7.7 %; NEUTROPHILS # (AUTO) 4.4 10^3/uL (1.5-6.6); NEUTROPHILS % (AUTO) 60.1 %; PLT - PLATELET COUNT 208 10^3/uL (130-450); RED BLOOD COUNT 4.13 10^6/uL (4.20-5.40); WHITE BLOOD COUNT 7.3 x10^3/uL (4.8-10.8)
[2023-07-28 14:39] LABS: PT - PROTHROMBIN TIME 11.3 secs (9.9-12.6)
[2023-07-28 14:55] LABS: CALCIUM 9.7 mg/dL (8.5-10.3); CREATININE 0.8 mg/dL (0.6-1.3); POTASSIUM 4.3 mmol/L (3.5-4.5)
== END 2023-07-28 11:40 | disposition home or self-care (01) ==
LOC: LAB.S 11:39
PROVIDERS: ATTEND Nurse Practitioner Acute Care
DX: R07.89 Other chest pain (principal); I25.10 Atherosclerotic heart disease of native coronary artery without angina pectoris
CPT/HCPCS: 36415; 80048; 85025; 85610

== ENCOUNTER 2023-08-28 11:26 | Outpatient (CLI) | payer MEDICARE, OTHER ==
[2023-08-28 15:28] LABS: CREATININE,URINE 147.9 mg/dL; MICROALBUM/CREATININE RATIO,UR 9.5 ug/mg (<30.0); MICROALBUMIN,URINE 1.4 mg/dL
[2023-08-28 21:28] LABS: ESTIMATED AVERAGE GLUCOSE 157 mg/dL (70-100); HEMOGLOBIN A1c% 7.1 % (4.27-6.07)
== END 2023-08-28 11:27 | disposition home or self-care (01) ==
LOC: LAB.S 11:26
PROVIDERS: ATTEND Internal Medicine Endocrinology, Diabetes & Metabolism
DX: E11.42 Type 2 diabetes mellitus with diabetic polyneuropathy (principal); Z79.4 Long term (current) use of insulin
CPT/HCPCS: 36415; 82043; 82570; 83036

== ENCOUNTER 2023-10-02 07:18 | Emergency (ER) | payer MEDICARE, OTHER ==
--- NOTE | 2023-10-02 07:39 | ED Physician Documentation ---
PD HPI ABD PAIN - Stated complaint Stated Complaint: STOMACH PX - Chief complaint Chief Complaint: Abd Pain - History obtained from History obtained from: Patient - History of Present Illness Timing - onset: Today Timing - duration: Hours Timing - details: Abrupt onset, Still present, Intermittant Quality: Cramping, Aching, Fullness/distended, Pain Location: All over / everywhere, Epigastric Radiation: Lower back. 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: Hysterectomy Cardiovascular: Cardiac catheterization HEENT: Cataracts, Tonsil/Adenoidectomy - Present Medications Home Medications: Ambulatory Orders Medication Instructions Recorded Confirmed Insulin NPH Human Isophane 120 unit BID 02/14/15 03/05/20 [Humulin N] Metoprolol Tartrate 25 mg DAILY 02/14/15 03/05/20 Multivitamin [Multivitamins] 1 tab DAILY 02/14/15 03/05/20 Nortriptyline [Pamelor] 50 mg QPM 02/14/15 03/05/20 Tumeric 500 mg PO DAILY 02/14/15 03/05/20 metFORMIN [Glucophage] 500 mg BID 02/14/15 03/05/20 oxyCODONE [Roxicodone] 10 mg PO BID 02/14/15 03/05/20 Triamterene/Hydrochlorothiazid 1 tab PO DAILY 02/15/15 03/05/20 [Triamterene-Hctz 75-50 mg Tab] Metoclopramide [Reglan] 10 mg PO Q6H PRN #20 tablet 02/10/19 03/05/20 Acetaminophen/Cod 300/30 [Tylenol DAILY 03/05/20 #3] Cholecalciferol [Vitamin D3] DAILY 03/05/20 Melatonin/Pyridoxine [Melatonin 5 HS 03/05/20 mg Tablet] Morphine Sulfate [Ms Contin] 15 mg TID 03/05/20 03/05/20 Naproxen Sodium [Aleve] 220 mg PO HS 03/05/20 03/05/20 Omeprazole 20 mg DAILY 03/05/20 03/05/20 Rosuvastatin Calcium [Crestor] 5 HS 03/05/20 Dicyclomine [Bentyl] 10 mg PO QID PRN #20 cap 10/02/23 Famotidine [Pepcid] 20 mg PO DAILY #20 tablet 10/02/23 Ondansetron Odt [Zofran] 4 mg TL Q6H PRN #20 tablet 10/02/23 Sucralfate [Carafate] 1 gm PO ACHS 10 Days #400 ml 10/02/23 - Allergies Allergies/Adverse Reactions: Allergies Allergy/AdvReac Type Severity Reaction Status Date / Time Cephalosporins Allergy Rash Verified 10/02/23 07:28 codeine Allergy Itching Verified 10/02/23 07:28 colchicine Allergy Rash Verified 10/02/23 07:28 hydromorphone Allergy Unknown Verified 10/02/23 07:28 Penicillins Allergy Anaphylaxis Verified 10/02/23 07:28 Sulfa (Sulfonamide Allergy Anaphylaxis Verified 10/02/23 07:28 Antibiotics) tuberculin,PPD,multi-puncture Allergy Unknown Verified 10/02/23 07:28 vancomycin Allergy Itching Verified 10/02/23 07:28 adhesive tape AdvReac Intermediate Irritation Verified 10/02/23 07:28 (Paper tape OK) allopurinol AdvReac Rash Verified 10/02/23 07:28 aspartame AdvReac Respiratory Verified 10/02/23 07:28 broccoli AdvReac Unknown Verified 10/02/23 07:28 gabapentin AdvReac Unknown Verified 10/02/23 07:28 calcium silicate Allergy Unknown Uncoded 10/02/23 07:28 MSG Allergy Unknown Uncoded 10/02/23 07:28 - Social History Does the pt smoke?: No Smoking Status: Never smoker Does the pt drink ETOH?: No Does the pt have substance abuse?: No - Immunizations Immunizations are current?: Yes - POLST Patient has POLST: No Results - Vitals Vitals: Oxygen O2 Source Room air - Labs Labs: Laboratory Tests 10/02/23 10/02/23 10/02/23 07:30 07:30 07:43 WBC RBC Hgb Hct MCV MCH MCHC RDW Plt Count MPV Neut # (Auto) Lymph # (Auto) Mineral # (Auto) Eos # (Auto) Baso # (Auto) Absolute Nucleated RBC Nucleated RBC % Sodium Potassium Chloride Carbon Dioxide Anion Gap BUN Creatinine Estimated GFR (MDRD) Glucose Lactic Acid Calcium Magnesium 1.6 L Total Bilirubin AST ALT Alkaline Phosphatase Total Protein Albumin Globulin Albumin/Globulin Ratio Lipase Urine Color YELLOW Urine Clarity CLEAR Urine pH 7.5 Ur Specific [place] 1.020 Urine Protein NEGATIVE Urine Glucose (UA) NEGATIVE Urine Ketones >=80 H Urine Occult Blood NEGATIVE Urine Nitrite NEGATIVE Urine Bilirubin NEGATIVE Urine Urobilinogen 0.2 (NORMAL) Ur Leukocyte Esterase NEGATIVE Ur Microscopic Review NOT INDICATED Urine Culture Comments NOT INDICATED Urine Opiates Screen NEGATIVE Ur Buprenorphine Scrn NEGATIVE Ur Oxycodone Screen POSITIVE H Urine Methadone Screen NEGATIVE Ur Barbiturates Screen NEGATIVE Ur Tricyclics Screen NEGATIVE Ur Phencyclidine Scrn NEGATIVE Ur Amphetamine Screen NEGATIVE U Methamphetamines Scrn NEGATIVE U Benzodiazepines Scrn POSITIVE H Urine Cocaine Screen NEGATIVE U Cannabinoids Screen POSITIVE H Ur Drug Screen Comment CUTOFF CONC BELOW: Ethyl Alcohol < 10.0 10/02/23 10/02/23 10/02/23 07:44 07:44 08:00 WBC 13.4 H RBC 4.18 L Hgb 10.9 L Hct 35.3 L MCV 84.4 MCH 26.1 L MCHC 30.9 L RDW 14.3 Plt Count 233 MPV 10.5 Neut # (Auto) 11.2 H Lymph # (Auto) 1.4 L Mineral # (Auto) 0.6 Eos # (Auto) 0.0 Baso # (Auto) 0.0 Absolute Nucleated RBC 0.00 Nucleated RBC % 0.0 Sodium 137 Potassium 3.5 Chloride 103 Carbon Dioxide 23 Anion Gap 11.0 BUN 13 Creatinine 0.8 Estimated GFR (MDRD) 69 L Glucose 193 H Lactic Acid 1.4 Calcium 9.6 Magnesium Total Bilirubin 0.6 AST 14 ALT 11 Alkaline Phosphatase 55 Total Protein 7.7 Albumin 4.1 Globulin 3.6 Albumin/Globulin Ratio 1.1 Lipase < 10 L Urine Color Urine Clarity Urine pH Ur Specific [place] Urine Protein Urine Glucose (UA) Urine Ketones Urine Occult Blood Urine Nitrite Urine Bilirubin Urine Urobilinogen Ur Leukocyte Esterase Ur Microscopic Review Urine Culture Comments Urine Opiates Screen Ur Buprenorphine Scrn Ur Oxycodone Screen Urine Methadone Screen Ur Barbiturates Screen Ur Tricyclics Screen Ur Phencyclidine Scrn Ur Amphetamine Screen U Methamphetamines Scrn U Benzodiazepines Scrn Urine Cocaine Screen U Cannabinoids Screen Ur Drug Screen Comment Ethyl Alcohol PD Medical Decision Making - ED course Complexity details: re-evaluated patient (feeling much better with IV fluids and meds of Inapsine, fentanyld, and toradol. Then given Bentyl for presumed IBS/cramps/consider cannibis hyperemesis. ), considered differential (She has had discrete episodes of severe abd cramping with vomiting, but states today is worst. Had eval at [facility] with labs/CT few weeks ago she says was without difinitive finding. I felt since she is having abrupt worse episode and in marked pain right now, that CT might aide Dx. ), d/w patient ED course: COnisderation of biliary colic, IBS, cannibis hyperemsis as higher likely given normal testing on previous visit to ER. However, could still consider intemittent obstuction, volvulus, kidney stone atypical pain location. Pt agreeable to repeat CT at thistime Labs done as well. CT did not show obvious Dx. So not obstruction, not apparent findings of cholecystitis. No kidney stones. Presume gastroparesis type mechanism, and could relate to IBS, IBD, cannibis, viral illness. Pt states she was not aware of cannibis hyperemsis and will stop that. Can also give Rx for intestinal spasms, in case of IBS or such instead. Departure - Departure Disposition: 01 Home, Self Care Clinical Impression: Intermittent abdominal pain Condition: Stable Record reviewed to determine appropriate education?: Yes Follow-Up: CANELO LUCIANO ARNP [Primary Care Provider] - Prescriptions: Dicyclomine [Bentyl] 10 mg PO QID PRN #20 cap PRN Reason: Abdominal Pain Sucralfate [Carafate] 1 gm PO ACHS 10 Days #400 ml Famotidine [Pepcid] 20 mg PO DAILY #20 tablet Ondansetron Odt [Zofran] 4 mg TL Q6H PRN #20 tablet PRN Reason: Nausea / Vomiting Comments: Continue with your current medications. Per radiology however hold your metformin for the day or 2 as they directed. Otherwise your CT scan did not show any obvious obstruction or gallbladder inflammation or blockages. There is knotted excess amount of stool. Presume there for some spasming of the intestine (as you termed her thought the idea of gastroparesis or irritable bowel is reasonable). For this I would have you try some antispasmodic dicyclomine in particular before bedtime since these episodes seem to be happening during the night or fleece tier. I would also suggest coating the stomach with some antacid called sacral fate in particular before bed. Add famotidine acid reducing medicine for a few weeks. See if this decreases the episodes generally. If you get an episode, to treat it at the time would be a combination of ondansetron nausea medicine and an extra dicyclomine tablet along with promethazine nausea medicine and see if that helps avert the episode. Return to the ER if needed. Also important on gastroparesis/irritable bowel episodes would be to identify any particular triggers. The above medications would be to try to reduce stomach acids and the effect of those as well as spasming of the intestine. See if there is any pattern to particular foods that you eat and subsequent at episodes. Cannabis can also cause intermittent gastroparesis episodes like this so I would suggest stopping on that and also seeing if there is any decrease in the episodes. Follow-up with your primary care. If persistent, they may suggest you see a specialist such as a vice president residential solar sales. I sent your prescriptions to the [facility] pharmacy here in [place]. Forms: PCP List Discharge Date/Time: 10/02/23 10:51
[2023-10-02 07:51] LABS: BASOPHILS % (AUTO) 0.3 %; EOSINOPHILS % (AUTO) 0.2 %; HCT - HEMATOCRIT 35.3 % (37.0-47.0); HGB - HEMOGLOBIN 10.9 g/dL (12.0-16.0); LYMPHOCYTES # (AUTO) 1.4 10^3/uL (1.5-3.5); LYMPHOCYTES % (AUTO) 10.7 %; MEAN CORPUSCULAR HEMOGLOBIN 26.1 pg (27.0-31.0); MEAN CORPUSCULAR HGB CONC 30.9 g/dL (32.0-36.0); MEAN CORPUSCULAR VOLUME 84.4 fL (81.0-99.0); MEAN PLATELET VOLUME 10.5 fL (7.9-10.8); MONOCYTES # (AUTO) 0.6 10^3/uL (0.0-1.0); MONOCYTES % (AUTO) 4.4 %; NEUTROPHILS # (AUTO) 11.2 10^3/uL (1.5-6.6); NEUTROPHILS % (AUTO) 83.7 %; PLT - PLATELET COUNT 233 10^3/uL (130-450); RED BLOOD COUNT 4.18 10^6/uL (4.20-5.40); RED CELL DISTRIBUTION WIDTH 14.3 % (12.0-15.0); WHITE BLOOD COUNT 13.4 x10^3/uL (4.8-10.8)
[2023-10-02 08:02] LABS: BILIRUBIN,URINE NEGATIVE (NEGATIVE); GLUCOSE, URINE (UA) NEGATIVE (NEGATIVE); KETONES,URINE (UA) >=80 mg/dL (NEGATIVE); LEUKOCYTE ESTERASE, URINE NEGATIVE (NEGATIVE); NITRITE,URINE NEGATIVE (NEGATIVE); OCCULT BLOOD,URINE NEGATIVE (NEGATIVE); PH,URINE 7.5 PH (5.0-7.5); PROTEIN,URINE NEGATIVE (NEGATIVE); UROBILINOGEN,URINE 0.2 (NORMAL) E.U./dL (NORMAL)
[2023-10-02 08:03] LABS: ALBUMIN 4.1 g/dL (3.2-5.5); ALBUMIN/GLOBULIN RATIO 1.1 (1.0-2.2); ALKALINE PHOSPHATASE 55 IU/L (42-121); ALT ALANINE AMINOTRANSFERASE 11 IU/L (10-60); AST ASPARTATE AMINOTRANSFERASE 14 IU/L (10-42); BILIRUBIN,TOTAL 0.6 mg/dL (0.2-1.0); BUN - BLOOD UREA NITROGEN 13 mg/dL (6-20); CALCIUM 9.6 mg/dL (8.5-10.3); CARBON DIOXIDE - CO2 23 mmol/L (21-32); CHLORIDE 103 mmol/L (101-111); CREATININE 0.8 mg/dL (0.6-1.3); GFR - MDRD 69 (>89); GLUCOSE 193 mg/dL (74-104); POTASSIUM 3.5 mmol/L (3.5-4.5); SODIUM 137 mmol/L (135-145); TOTAL PROTEIN 7.7 g/dL (6.4-8.9)
[2023-10-02 08:05] LABS: LIPASE < 10 U/L (11-82)
[2023-10-02 08:06] LABS: CLARITY,URINE CLEAR (CLEAR)
[2023-10-02] MEDS: fentaNYL 100 MCG/2 ML VIAL IVP STA ×3 (08:12→10:36)
[2023-10-02] MEDS: KETOROLAC 15 MG/ML VIAL IVP STA (08:13)
[2023-10-02] MEDS: DROPERIDOL 5 MG/2 ML VIAL IVP STA (08:13)
[2023-10-02] MEDS: SODIUM CHLORIDE 0.9% 1,000 ML IV STA (08:14)
[2023-10-02] MEDS ORDERED: iohexoL-300 100 ML VIAL ONE (08:17)
[2023-10-02 08:44] LABS: ETOH - ETHANOL < 10.0 mg/dL; MAGNESIUM 1.6 mg/dL (1.7-2.3)
[2023-10-02 09:01] LABS: AMPHETAMINE SCREEN,URINE NEGATIVE (NEGATIVE); BARBITURATE SCREEN,UR NEGATIVE (NEGATIVE); BENZODIAZEPINES SCREEN, URINE POSITIVE (NEGATIVE); BUPRENORPHINE SCREEN, URINE NEGATIVE (NEGATIVE); COCAINE SCREEN URINE NEGATIVE (NEGATIVE); METHADONE SCREEN, URINE NEGATIVE (NEGATIVE); METHAMPHETAMINES SCREEN, URINE NEGATIVE (NEGATIVE); OPIATE SCREEN, URINE NEGATIVE (NEGATIVE); OXYCODONE SCREEN, URINE POSITIVE (NEGATIVE); THC CANNABINOID SCREEN, URINE POSITIVE (NEGATIVE); TRICYCLIC ANTIDEPRESSANT,URINE NEGATIVE (NEGATIVE)
[2023-10-02] MEDS: MAGNESIUM SULFATE 2 GRAM 2 GM/50 ML BAG IV ONE (09:06)
[2023-10-02] MEDS: DICYCLOMINE 10 MG CAPSULE PO STA (09:07)
--- NOTE | 2023-10-02 09:14 | CT Report ---
PROCEDURE: Abdomen/Pelvis W INDICATIONS: severe abd pain overnight; epiosdes every few days CONTRAST: Omni 300 100ml TECHNIQUE: After the administration of intravenous contrast, a CT scan of the abdomen and pelvis was performed. Images were recorded and evaluated at appropriate window settings. Reformats: coronal and sagittal. F or radiation dose reduction, the following was used: automated exposure control, adjustment of mA and /or kV according to patient size. COMPARISON: 07/06/2020. FINDINGS: Image quality: Diagnostic. Lower chest: Unremarkable. Liver: No solid mass. Gallbladder: Chronically distended gallbladder. No gallbladder wall thickening. No fluid around the g allbladder. Biliary tree: Chronic air within the biliary tree. Common duct dilatation is decreased compared to e previous study. Spleen: No splenomegaly. Pancreas: No pancreatic ductal dilation. Adrenals: No adrenal nodule. Kidneys and ureters: No hydronephrosis. No renal cystic lesion which requires follow up. No solid mas s. Stomach, bowel and peritoneum: Moderate sigmoid diverticulosis with mild diffuse sigmoid wall thicken ing, likely representing muscular hypertrophy. No CT evidence of acute diverticulitis. No pathologic free fluid. Lymph nodes: No central or retroperitoneal adenopathy. Vessels: No infrarenal aortic aneurysm. Patent portal vein. PELVIS Reproductive organs: Uterus is surgically absent. No adnexal masses.. Bladder: No abnormal wall thickening, accounting for underdistention. Pelvic lymph nodes: No pelvic adenopathy by size criteria. Bones: No aggressive osseous abnormality. Remote posterior laminectomy and posterior lateral regi and pedicle screw fixation in the lumbar spine. Other: No significant ventral or inguinal hernia. IMPRESSION: 1. Long-standing biliary air consistent with previous sphincterotomy. 2. Interval decrease in common duct dilatation. 3. Chronic gallbladder distention. This is a nonspecific finding. 4. Moderate sigmoid diverticulosis. 5. Remote hysterectomy. 6. No acute abdominal process noted. Reviewed by: Edwin Bell MD on 10/02/2023 9:13 AM PDT Approved by: Edwin Bell MD on 10/02/2023 9:13 AM PDT Station ID: [id number]
[2023-10-02 10:55] VITALS: BP 154/73; O2SAT 98
[2023-10-02] MEDS: iohexoL-300 100 ML VIAL IVP ONE (15:19)
== END 2023-10-02 10:51 | disposition home or self-care (01) ==
LOC: ED 07:18
DX: R10.9 Unspecified abdominal pain (principal); E78.00 Pure hypercholesterolemia, unspecified; J45.909 Unspecified asthma, uncomplicated; G47.30 Sleep apnea, unspecified; E11.9 Type 2 diabetes mellitus without complications; M10.9 Gout, unspecified; Z87.19 Personal history of other diseases of the digestive system; Z79.4 Long term (current) use of insulin; Z79.899 Other long term (current) drug therapy
CPT/HCPCS: 36415; 74177; 80053; 80306; 81003; 83605; 83690; 83735; 85025; 96365; 96375; 96376; 99283; 99284; A9270; G0480; Q9967; 81001; 82077; 87086

== ENCOUNTER 2023-10-04 15:36 | Inpatient (IN) | payer MEDICARE, OTHER ==
--- NOTE | 2023-10-04 16:01 | ED Physician Documentation ---
History of Present Illness - Stated complaint Stated Complaint: FEVER - Chief complaint Chief Complaint: Fever - History obtained from History obtained from: Patient, Family - History of Present Illness Timing: How many days ago (3) Pain level max: 8 Pain level now: 8 - Additonal information Additional information: 78-year-old female presents to the emergency department with 3 days of fever and abdominal pain, pain is mainly in the right upper quadrant. She was seen here 2 days ago for abdominal pain, had a CT scan at that time which did not show any acute abnormalities.Her laboratory testing 2 days ago shows an elevated white blood cell count but no other significant abnormalities. Her urine toxicology screen was positive for cannabinoids and oxycodone. Family states that she has had continued right-sided abdominal pain and developed fevers, 10 2-1 03 at home. She does have a history of biliary colic and what sounds like possible cholecystitis treated with a biliary drain in the past. She did not have her gallbladder removed after drainage for unclear reasons. She states that she does not know why they did not "just take it out". She states that she took a home COVID test which was negative. Is not having any significant coughing. No rhinorrhea or congestion. Review of Systems Constitutional: reports: Fever, Chills Ears: denies: Ear pain Nose: denies: Rhinorrhea / runny nose, Congestion Throat: denies: Sore throat Respiratory: denies: Cough GI: denies: Hematemesis, Bloody / black stool : denies: Dysuria, Frequency, Hesitancy Skin: denies: Rash Musculoskeletal: denies: Neck pain, Back pain Neurologic: denies: Headache PD PAST MEDICAL HISTORY - Past Medical History Past Medical History: Yes Cardiovascular: High cholesterol, Murmur Respiratory: Asthma, Sleep apnea, CPAP use Endocrine/Autoimmune: Type 2 diabetes GI: Ulcers, Diverticulitis : Retention, Frequency Musculoskeletal: Gout Derm: Other - Past Surgical History Past Surgical History: Yes General: Appendectomy Ortho: Knee replacement, 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 Cardiovascular: Cardiac catheterization HEENT: Cataracts, Tonsil/Adenoidectomy - Present Medications Home Medications: Ambulatory Orders Medication Instructions Recorded Confirmed Insulin NPH Human Isophane 120 unit BID 02/14/15 10/04/23 [Humulin N] Metoprolol Tartrate 25 mg BID 02/14/15 10/04/23 Multivitamin [Multivitamins] 1 tab DAILY 02/14/15 10/04/23 Tumeric 500 mg PO DAILY 02/14/15 10/04/23 metFORMIN [Glucophage] 500 mg BID 02/14/15 10/04/23 oxyCODONE [Roxicodone] 10 mg PO BID 02/14/15 10/04/23 Metoclopramide [Reglan] 10 mg PO Q6H PRN #20 tablet 02/10/19 10/04/23 Acetaminophen/Cod 300/30 [Tylenol 1 tab PO PRN PRN 03/05/20 #3] Cholecalciferol [Vitamin D3] 1 tab PO DAILY 03/05/20 10/04/23 Melatonin/Pyridoxine [Melatonin 5 1 tab PO DAILY 03/05/20 10/04/23 mg Tablet] Naproxen Sodium [Aleve] 220 mg PO HS 03/05/20 10/04/23 Rosuvastatin Calcium [Crestor] 5 tab PO HS 03/05/20 10/04/23 Dicyclomine [Bentyl] 10 mg PO QID PRN #20 cap 10/02/23 10/04/23 Famotidine [Pepcid] 20 mg PO DAILY #20 tablet 10/02/23 10/04/23 Magnesium Oxide [Magnesium] 1 cap PO DAILY 10/04/23 10/04/23 - Allergies Allergies/Adverse Reactions: Allergies Allergy/AdvReac Type Severity Reaction Status Date / Time Cephalosporins Allergy Rash Verified 10/04/23 15:41 codeine Allergy Itching Verified 10/04/23 15:41 colchicine Allergy Rash Verified 10/04/23 15:41 hydromorphone Allergy Unknown Verified 10/04/23 15:41 Penicillins Allergy Anaphylaxis Verified 10/04/23 15:41 Sulfa (Sulfonamide Allergy Anaphylaxis Verified 10/04/23 15:41 Antibiotics) tuberculin,PPD,multi-puncture Allergy Unknown Verified 10/04/23 15:41 vancomycin Allergy Itching Verified 10/04/23 15:41 adhesive tape AdvReac Intermediate Irritation Verified 10/04/23 15:41 (Paper tape OK) allopurinol AdvReac Rash Verified 10/04/23 15:41 aspartame AdvReac Respiratory Verified 10/04/23 15:41 broccoli AdvReac Unknown Verified 10/04/23 15:41 gabapentin AdvReac Unknown Verified 10/04/23 15:41 calcium silicate Allergy Unknown Uncoded 10/04/23 15:41 MSG Allergy Unknown Uncoded 10/04/23 15:41 - Social History Does the pt smoke?: No Smoking Status: Never smoker Does the pt drink ETOH?: No Does the pt have substance abuse?: No - Immunizations Immunizations are current?: Yes - POLST Patient has POLST: No PD ED PE NORMAL - Vitals Vital signs reviewed: Yes - General General: Alert and oriented X 3, No acute distress - HEENT HEENT: PERRL, Moist mucous membranes, Pharynx benign - Neck Neck: Supple, no meningeal sign - Cardiac Cardiac: RRR, Strong equal pulses - Respiratory Respiratory: No respiratory distress, Clear bilaterally - Abdomen Abdomen: Soft, Other (Diffusely tender in the abdomen, mainly in the right upper quadrant. Positive Shah sign) - Derm Derm: Warm and dry - Extremities Extremities: No edema, No calf tenderness / cord - Neuro Neuro: Alert and oriented X 3 - Psych Psych: Normal mood, Normal affect Results - Vitals Vitals: Vital Signs - 24 hr 10/04/23 10/04/23 10/04/23 15:41 15:43 17:41 Temperature 39.5 C H 38.8 C H Heart Rate 100 103 H 122 H Respiratory 22 16 24 Rate Blood Pressure 118/50 L 137/53 H 161/70 H O2 Saturation 96 96 91 L 10/04/23 18:02 Temperature 38.2 C H Heart Rate Respiratory Rate Blood Pressure O2 Saturation Oxygen O2 Source Room air - Labs Labs: Laboratory Tests 10/04/23 10/04/23 10/04/23 16:00 16:05 16:05 WBC 17.4 H RBC 3.93 L Hgb 10.4 L Hct 32.9 L MCV 83.7 MCH 26.5 L MCHC 31.6 L RDW 14.4 Plt Count 201 MPV 10.4 Neut # (Auto) 15.4 H Lymph # (Auto) 0.9 L Graham # (Auto) 0.9 Eos # (Auto) 0.0 Baso # (Auto) 0.1 Absolute Nucleated RBC 0.00 Nucleated RBC % 0.0 Sodium 130 L Potassium 3.3 L Chloride 96 L Carbon Dioxide 24 Anion Gap 10.0 BUN 8 Creatinine 0.7 Estimated GFR (MDRD) 81 L Glucose 270 H Lactic Acid Calcium 9.0 Total Bilirubin 0.8 AST 13 ALT 9 L Alkaline Phosphatase 63 Total Protein 7.3 Albumin 3.6 Globulin 3.7 Albumin/Globulin Ratio 1.0 Lipase < 10 L Urine Color Urine Clarity Urine pH Ur Specific [place] Urine Protein Urine Glucose (UA) Urine Ketones Urine Occult Blood Urine Nitrite Urine Bilirubin Urine Urobilinogen Ur Leukocyte Esterase Urine RBC Urine WBC Ur Squamous Epith Cells Urine Bacteria Ur Microscopic Review Urine Culture Comments Nasal Adenovirus (PCR) NOT DETECTED Nasal B. parapertussis DNA (PCR) NOT DETECTED Nasal Coronavir 229E PCR NOT DETECTED Nasal Coronavir HKU1 PCR NOT DETECTED Nasal Coronavir NL63 PCR NOT DETECTED Nasal Coronavir OC43 PCR NOT DETECTED Nasal Enterovir/Rhinovir PCR NOT DETECTED Nasal Influenza B PCR NOT DETECTED Nasal Influenza A PCR NOT DETECTED Nasal Parainfluen 1 PCR NOT DETECTED Nasal Parainfluen 2 PCR NOT DETECTED Nasal Parainfluen 3 PCR NOT DETECTED Nasal Parainfluen 4 PCR NOT DETECTED Nasal RSV (PCR) NOT DETECTED Nasal B.pertussis DNA PCR NOT DETECTED Nasal C.pneumoniae (PCR) NOT DETECTED Fox Human Metapneumo PCR NOT DETECTED Nasal M.pneumoniae (PCR) NOT DETECTED Nasal SARS-CoV-2 (PCR) NOT DETECTED 10/04/23 10/04/23 16:20 16:35 WBC RBC Hgb Hct MCV MCH MCHC RDW Plt Count MPV Neut # (Auto) Lymph # (Auto) Graham # (Auto) Eos # (Auto) Baso # (Auto) Absolute Nucleated RBC Nucleated RBC % Sodium Potassium Chloride Carbon Dioxide Anion Gap BUN Creatinine Estimated GFR (MDRD) Glucose Lactic Acid 1.4 Calcium Total Bilirubin AST ALT Alkaline Phosphatase Total Protein Albumin Globulin Albumin/Globulin Ratio Lipase Urine Color YELLOW Urine Clarity CLEAR Urine pH 5.5 Ur Specific [place] >=1.030 H Urine Protein 100 H Urine Glucose (UA) 250 H Urine Ketones 15 H Urine Occult Blood MODERATE H Urine Nitrite NEGATIVE Urine Bilirubin NEGATIVE Urine Urobilinogen 0.2 (NORMAL) Ur Leukocyte Esterase NEGATIVE Urine RBC 6-10 H Urine WBC 0-3 Ur Squamous Epith Cells FEW Squamous Urine Bacteria Few Ur Microscopic Review INDICATED Urine Culture Comments NOT INDICATED Nasal Adenovirus (PCR) Nasal B. parapertussis DNA (PCR) Nasal Coronavir 229E PCR Nasal Coronavir HKU1 PCR Nasal Coronavir NL63 PCR Nasal Coronavir OC43 PCR Nasal Enterovir/Rhinovir PCR Nasal Influenza B PCR Nasal Influenza A PCR Nasal Parainfluen 1 PCR Nasal Parainfluen 2 PCR Nasal Parainfluen 3 PCR Nasal Parainfluen 4 PCR Nasal RSV (PCR) Nasal B.pertussis DNA PCR Nasal C.pneumoniae (PCR) Fox Human Metapneumo PCR Nasal M.pneumoniae (PCR) Nasal SARS-CoV-2 (PCR) - Rads (name of study) cxr Relevant Findings:: Final report received, See rad report RUQ US Relevant Findings:: Final report received, See rad report MRCP Relevant Findings:: Final report received, See rad report PD Medical Decision Making - ED course Complexity details: reviewed results, re-evaluated patient, considered differential, d/w patient, d/w family, d/w library 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 Normal LFTs. White blood cell count elevated compared to 2 days ago when she was here. Had a hydropic gallbladder on CT scan 2 days ago, today she is exquisitely tender in the right upper quadrant. Ultrasound shows a distended gallbladder consistent with cholecystitis, mildly dilated common bile duct. MRCP was undertaken, she could not complete the entire MRCP, but her common bile duct appears to be 8 mm on that study with no evidence of stones. Does have a large amount of sludge and fluid in a distended gallbladder with pericholecystic fluid, again consistent with cholecystitis. Patient was given Rocephin and Flagyl here, has multiple antibiotic allergies. Discussed the case with Dr. Cordova, general surgery on-call and she will come evaluate the patient when she is done with her current emergent surgical case. I did review the patient's records as best I could through [facility]. She had a reportedly normal cardiac catheterization 2 months ago at [facility]. Patient states that she did not have any stentable lesions. I did find a note from the [facility] about her prior biliary obstruction. The following is from that chart in 2019: "In brief, she developed symptoms of RUQ/epigastric pain in April which was intermittently associated with nausea, but no vomiting. Additionally, she describes subjective fevers and chills most nights. She had a poor appetite and reports 20lbs of weight loss since the onset of symptoms. She does report intermittent acholic stools. She was evaluated and found to have hyperbilirubinemia and transaminitis for which she underwent an ERCP on 07/15/19. The CBD was unable to be cannulated, however a pancreatic duct stent was placed. EUS demonstrated 17mm of CBD dilation but no obstructive mass biliary or pancreatic mass was identified. Thereafter on 09/22/19 she had a percutaneous internal-external biliary drain (8Fr) placed by IR. That evening she became febrile for which she presented to [facility] and started on antibioitics. Since that time, she has re-presented to the ED twice (09/25; 09/28) for dehydration in the setting of high biliary drain output (~2000cc per day). Despite copious intake of fluids she reports diminished urine output, headache and overall fatigue/malaise. She denies chest pain but is having shortness of breath. Her RUQ pain transiently improved after drain placement, however it has recurred to her baseline." "There was re-demonstration of know intrahepatic biliary dilation and questionable ill defined mass near the pancreatic head. On 10/03, she had an EUS which did not show any mass or abnormality in the pancreatic head and no other masses her seen. Given these findings, she elected to discharge and complete her work up as an outpatient. Plan is to complete a joint procedure with GI/IR for cholangiogram/ERCP in ~4 weeks." Departure - Departure Clinical Impression: Acute cholecystitis Fever Qualifiers: Fever type: unspecified Qualified Code(s): R50.9 - Fever, unspecified Condition: Stable Forms: PCP List
[2023-10-04 16:15] LABS: BASOPHILS # (AUTO) 0.1 10^3/uL (0.0-0.1); BASOPHILS % (AUTO) 0.3 %; HCT - HEMATOCRIT 32.9 % (37.0-47.0); HGB - HEMOGLOBIN 10.4 g/dL (12.0-16.0); LYMPHOCYTES # (AUTO) 0.9 10^3/uL (1.5-3.5); MEAN CORPUSCULAR HEMOGLOBIN 26.5 pg (27.0-31.0); MEAN CORPUSCULAR HGB CONC 31.6 g/dL (32.0-36.0); MEAN CORPUSCULAR VOLUME 83.7 fL (81.0-99.0); MEAN PLATELET VOLUME 10.4 fL (7.9-10.8); MONOCYTES # (AUTO) 0.9 10^3/uL (0.0-1.0); MONOCYTES % (AUTO) 5.2 %; NEUTROPHILS # (AUTO) 15.4 10^3/uL (1.5-6.6); NEUTROPHILS % (AUTO) 88.6 %; PLT - PLATELET COUNT 201 10^3/uL (130-450); RED BLOOD COUNT 3.93 10^6/uL (4.20-5.40); RED CELL DISTRIBUTION WIDTH 14.4 % (12.0-15.0); WHITE BLOOD COUNT 17.4 x10^3/uL (4.8-10.8)
[2023-10-04] MEDS: fentaNYL 100 MCG/2 ML VIAL IVP STA ×2 (16:21→17:21)
[2023-10-04] MEDS: SODIUM CHLORIDE 0.9% 1,000 ML IV STA ×2 (16:22)
[2023-10-04 16:28] LABS: ALBUMIN 3.6 g/dL (3.2-5.5); ALKALINE PHOSPHATASE 63 IU/L (42-121); ALT ALANINE AMINOTRANSFERASE 9 IU/L (10-60); AST ASPARTATE AMINOTRANSFERASE 13 IU/L (10-42); BILIRUBIN,TOTAL 0.8 mg/dL (0.2-1.0); BUN - BLOOD UREA NITROGEN 8 mg/dL (6-20); CARBON DIOXIDE - CO2 24 mmol/L (21-32); CHLORIDE 96 mmol/L (101-111); CREATININE 0.7 mg/dL (0.6-1.3); GFR - MDRD 81 (>89); GLUCOSE 270 mg/dL (74-104); LIPASE < 10 U/L (11-82); POTASSIUM 3.3 mmol/L (3.5-4.5); SODIUM 130 mmol/L (135-145); TOTAL PROTEIN 7.3 g/dL (6.4-8.9)
[2023-10-04 16:44] LABS: BILIRUBIN,URINE NEGATIVE (NEGATIVE); GLUCOSE, URINE (UA) 250 mg/dL (NEGATIVE); KETONES,URINE (UA) 15 mg/dL (NEGATIVE); LEUKOCYTE ESTERASE, URINE NEGATIVE (NEGATIVE); NITRITE,URINE NEGATIVE (NEGATIVE); OCCULT BLOOD,URINE MODERATE (NEGATIVE); PH,URINE 5.5 PH (5.0-7.5); PROTEIN,URINE 100 mg/dL (NEGATIVE); UROBILINOGEN,URINE 0.2 (NORMAL) E.U./dL (NORMAL)
[2023-10-04 16:47] LABS: CLARITY,URINE CLEAR (CLEAR)
[2023-10-04 16:52] LABS: BACTERIA,URINE Few /HPF (None Seen); SQUAMOUS EPITHELIAL CELL,UR FEW Squamous (<= Few); WBC,URINE 0-3 /HPF (0-5)
[2023-10-04 17:10] LABS: B. PARAPERTUSSIS- RESP PCR PAN NOT DETECTED; B. PERTUSSIS- RESP PCR PANEL NOT DETECTED; C. PNEUMONIAE- RESP PCR PANEL NOT DETECTED; CORONAVIRUS 229E-RESP PCR NOT DETECTED; CORONAVIRUS HKU1-RESP PCR NOT DETECTED; CORONAVIRUS NL63-RESP PCR NOT DETECTED; CORONAVIRUS OC43-RESP PCR NOT DETECTED; HUMAN METAPNEUMOVIRUS NOT DETECTED; INFLUENZA A- RESP PCR PANEL NOT DETECTED; INFLUENZA B - RESP PCR PANEL NOT DETECTED; M. PNEUMONIAE- RESP PCR PANEL NOT DETECTED; PARAINFLUENZA VIRUS 1 NOT DETECTED; PARAINFLUENZA VIRUS 2 NOT DETECTED; PARAINFLUENZA VIRUS 3 NOT DETECTED; PARAINFLUENZA VIRUS 4 NOT DETECTED; RHINOVIRUS/ENTEROVIRUS NOT DETECTED; RSV- RESP PCR PANEL NOT DETECTED; SARS-CoV-2 -RESP PCR PANEL NOT DETECTED
[2023-10-04] MEDS: cefTRIAXone 1 GM VIAL IVP STA (17:18)
[2023-10-04] MEDS: metroNIDAZOLE 500 MG/100 ML 500 MG/100 ML BAG IV ONE (17:24)
[2023-10-04] MEDS: ACETAMINOPHEN 325 MG TABLET PO STA (17:32)
--- NOTE | 2023-10-04 17:41 | Ultrasound Report ---
PROCEDURE: Abdomen Limited INDICATIONS: RUQ pain, fever TECHNIQUE: Real-time focused scanning was performed of the abdomen, with image documentation. COMPARISONS: None. FINDINGS: Liver: The liver is poorly assessed, secondary to overlying bowel gas. Gallbladder: The gallbladder is enlarged, measuring 8.7 x 5.1 x 5 cm. Abnormal echogenic material can be seen within the gallbladder, with a mildly increased echogenicity focus measuring 4.2 x 7.4 x 3.8 cm within it. The gallbladder wall is thickened at 5 mm. Pericholecystic fluid is seen. The sonograp hic Shah's sign is not recorded by the technologist. Biliary ducts: The common bile duct is mildly enlarged at 10 mm. Pancreas: The pancreas is not seen. IVC: Intrahepatic inferior vena cava is patent. Miscellaneous: No free abdominal fluid. IMPRESSION: Abnormal gallbladder, which is distended, with hyperechoic material within it. Please consider sludge versus mucus/purulent material within it. Gallbladder wall thickening and pericholecystic fluid are seen. The common bile duct is dilated to 10 mm. Note: Concordant preliminary findings given by the quarrying manager upon the completion of the examination to Dr. Mercado at 4:50 PM on 10/04/2023. Reviewed by: Gus Thomas MD on 10/04/2023 4:39 PM YASMANI Approved by: Gus Thomas MD on 10/04/2023 4:39 PM YASMANI Station ID: [id number]
[2023-10-04] MEDS: LORazepam 2 MG/ML VIAL IVP STA (17:48)
--- NOTE | 2023-10-04 18:43 | MRI Report ---
PROCEDURE: MRCP WO INDICATIONS: hydropic gallbladder, dilated CBD CONTRAST: None given TECHNIQUE: The patient declined to complete this study. Following imaging sequences were obtained: Coronal T2 haste, axial T1-weighted in and out of phase images, axial T2 delayed, and axial T2-weight ed fat saturated haste. COMPARISON: Correlation is made with ultrasound 10/04/[address], 10/02/2023. FINDINGS: Image quality: Motion artifact is noted. Study further limited by incomplete protocol, as the margi ent declined to finish this study. Gallbladder: Prominent in size. Irregular contents can be seen within the gallbladder. There is minim al pericholecystic fluid. Biliary tree: No intrahepatic biliary ductal dilatation is seen. The common bile duct is not well see n, yet it measures up to 8 mm on these images. Pancreas: No pancreatic ductal dilation. Lung bases and heart: Unremarkable. Liver: No solid mass. Spleen: No splenomegaly. Adrenals: No adrenal nodule. Kidneys and ureters: No hydronephrosis. No renal cystic lesion which requires follow up. No solid mas s. Bowel and peritoneum: No bowel distension. No pathologic free fluid. Lymph nodes: No central or retroperitoneal adenopathy. Vessels: No infrarenal aortic aneurysm. Bones: No aggressive osseous abnormality. Lower lumbar spine postoperative hardware is seen. Other: No significant ventral hernia. IMPRESSION: Distended, abnormal gallbladder, with irregular contents and minimal pericholecystic fluid. Cholecyst itis is possible. The common bile duct is not well seen on this limited study, yet it measures up to 8 mm. Additional findings: Lumbar fixation hardware Reviewed by: Gus Thomas MD on 10/04/2023 5:41 PM YASMANI Approved by: Gus Thomas MD on 10/04/2023 5:41 PM YASMANI Station ID: [id number]
--- NOTE | 2023-10-04 18:47 | XRAY Report ---
PROCEDURE: Chest 1V INDICATIONS: fever TECHNIQUE: One view of the chest was acquired. COMPARISON: 03/05/2020 FINDINGS: Surgical changes and devices: Lower cervical spine fixation hardware is partially seen. Lungs and pleura: No pleural effusions or pneumothorax. Lungs are clear, yet hyperexpanded. Mediastinum: The aorta is prominent and tortuous. The cardiac contours are within normal limits. Bones and chest wall: No suspicious bony lesions. Age-appropriate degenerative changes are seen. O verlying soft tissues appear unremarkable. IMPRESSION: Hyperexpanded lungs are seen, without an acute cardiopulmonary abnormality seen. Postoperative and degenerative changes are seen. Reviewed by: Gus Thomas MD on 10/04/2023 5:45 PM [email or web address] Approved by: Gus Thomas MD on 10/04/2023 5:45 PM YASMANI Station ID: [id number]
[2023-10-04] MEDS: fentaNYL 100 MCG/2 ML VIAL IVP PRN (20:51)
--- NOTE | 2023-10-04 21:51 | HISTORY & PHYSICAL EXAMINATION ---
HPI - Admitted From Admitted from: ED - History Obtained From History obtained from: Patient, Family (daughter) - History of Present Illness HPI Comment/Other: Patient with 3 days of severe ("worse than labor") RUQ abdominal pain with anorexia and nausea ("I never vomit") as well as persistent fever and overall malaise. She has a long history of "gallbladder problem" around 2019 - she has a percutaneous cholecystostomy tube for cholecystitis that was ultimately removed without a subsequent cholecystectomy; she had multiple ERCP/EUS procedures for sludge/obstruction/stenting/brushings with for a time concern for a neoplasm and worked up for possible whipple, but ultimately she was told she didn't need a whipple. Since then she had chronic right scapular pain with meals, but this week has had much worse than normal RUQ pain. PMH/PSH - Past Medical History Cardiovascular: positive: High cholesterol, Murmur Respiratory: positive: Asthma, Sleep apnea, CPAP use Endocrine/Autoimmune: positive: Type 2 diabetes GI: positive: Ulcers, Diverticulitis : positive: Retention, Frequency Musculoskeletal: positive: Gout Derm: positive: Other MRSA Hx?: No - Past Surgical History General: positive: Appendectomy (vertical paramedian incision (remote)) Ortho: positive: Knee replacement, Spine surgery /MANAGER SAS: positive: Hysterectomy, Other (both uterine and vaginal suspension procedures ) Cardiovascular: positive: Cardiac catheterization HEENT: positive: Cataracts, Tonsil/Adenoidectomy Social & Family Hx - Living Situation Living Arrangement: At home Living Situation: Other (with adult autistic son) - Social History Does the pt smoke?: No Smoking Status: Never smoker Does the pt drink ETOH?: No Does the pt have substance abuse?: No Additional Social History: ambulates with cane, cooks for self - POLST Patient has POLST: No Meds/Allgy - Home Medications Home Medications: Ambulatory Orders Medication Instructions Recorded Confirmed Insulin NPH Human Isophane 120 unit BID 02/14/15 10/04/23 [Humulin N] Metoprolol Tartrate 25 mg BID 02/14/15 10/04/23 Multivitamin [Multivitamins] 1 tab DAILY 02/14/15 10/04/23 Tumeric 500 mg PO DAILY 02/14/15 10/04/23 metFORMIN [Glucophage] 500 mg BID 02/14/15 10/04/23 oxyCODONE [Roxicodone] 10 mg PO BID 02/14/15 10/04/23 Metoclopramide [Reglan] 10 mg PO Q6H PRN #20 tablet 02/10/19 10/04/23 Acetaminophen/Cod 300/30 [Tylenol 1 tab PO PRN PRN 03/05/20 #3] Cholecalciferol [Vitamin D3] 1 tab PO DAILY 03/05/20 10/04/23 Melatonin/Pyridoxine [Melatonin 5 1 tab PO DAILY 03/05/20 10/04/23 mg Tablet] Naproxen Sodium [Aleve] 220 mg PO HS 03/05/20 10/04/23 Rosuvastatin Calcium [Crestor] 5 tab PO HS 03/05/20 10/04/23 Dicyclomine [Bentyl] 10 mg PO QID PRN #20 cap 10/02/23 10/04/23 Famotidine [Pepcid] 20 mg PO DAILY #20 tablet 10/02/23 10/04/23 Magnesium Oxide [Magnesium] 1 cap PO DAILY 10/04/23 10/04/23 - Allergies Allergies/Adverse Reactions: Allergies Allergy/AdvReac Type Severity Reaction Status Date / Time Cephalosporins Allergy Rash Verified 10/04/23 15:41 codeine Allergy Itching Verified 10/04/23 15:41 colchicine Allergy Rash Verified 10/04/23 15:41 hydromorphone Allergy Unknown Verified 10/04/23 15:41 Penicillins Allergy Anaphylaxis Verified 10/04/23 15:41 Sulfa (Sulfonamide Allergy Anaphylaxis Verified 10/04/23 15:41 Antibiotics) tuberculin,PPD,multi-puncture Allergy Unknown Verified 10/04/23 15:41 vancomycin Allergy Itching Verified 10/04/23 15:41 adhesive tape AdvReac Intermediate Irritation Verified 10/04/23 15:41 (Paper tape OK) allopurinol AdvReac Rash Verified 10/04/23 15:41 aspartame AdvReac Respiratory Verified 10/04/23 15:41 broccoli AdvReac Unknown Verified 10/04/23 15:41 gabapentin AdvReac Unknown Verified 10/04/23 15:41 calcium silicate Allergy Unknown Uncoded 10/04/23 15:41 MSG Allergy Unknown Uncoded 10/04/23 15:41 Review of Systems - Constitutional Constitutional: reports: Fatigue, Fever, Malaise - Gastrointestinal Gastrointestinal: reports: Abdominal pain, Nausea. denies: Constipation, Diarrhea, Vomiting Exam - Vital Signs Reviewed Vital Signs: Yes Vital Signs: Vital Signs x48h Temp Pulse Resp BP Pulse Ox 10/04/23 21:36 96 14 124/71 97 10/04/23 21:09 37.6 C 94 16 107/48 L 95 10/04/23 19:21 39.1 C H 97 15 93/45 L 95 10/04/23 18:02 38.2 C H 10/04/23 17:41 38.8 C H 122 H 24 161/70 H 91 L 10/04/23 15:43 103 H 16 137/53 H 96 10/04/23 15:41 39.5 C H 100 22 118/50 L 96 - Physical Exam General Appearance: positive: Mild distress Eyes Bilateral: positive: Normal inspection, PERRL ENT: positive: ENT inspection nml, Pharynx nml, No signs of dehydration Neck: positive: Nml inspection, Thyroid nml, No JVD, Trachea midline Respiratory: positive: Chest non-tender, No respiratory distress, Breath sounds nml Cardiovascular: positive: Regular rate & rhythm, No murmur, No gallop Abdomen: positive: Tenderness (positive murpheys sign) Skin: positive: Color nml, No rash, Warm, Dry Extremities: positive: Non-tender, Full ROM, Nml appearance Neurologic/Psychiatric: positive: Oriented x3, Mood/affect nml Results - Lab Results Lab results reviewed: Yes Fish Bones: 10/04/23 16:05 10/04/23 16:05 Other Lab Results: Lab Results x24hrs 10/04/23 10/04/23 10/04/23 Range/Units 16:35 16:20 16:05 WBC (4.8-10.8) x10^3/uL RBC (4.20-5.40) 10^6/uL Hgb (12.0-16.0) g/dL Hct (37.0-47.0) % MCV (81.0-99.0) fL MCH (27.0-31.0) pg MCHC (32.0-36.0) g/dL RDW (12.0-15.0) % Plt Count (130-450) 10^3/uL MPV (7.9-10.8) fL Neut # (Auto) (1.5-6.6) 10^3/uL Lymph # (Auto) (1.5-3.5) 10^3/uL [place] # (Auto) (0.0-1.0) 10^3/uL Eos # (Auto) (0.0-0.7) 10^3/uL Baso # (Auto) (0.0-0.1) 10^3/uL Absolute Nucleated RBC x10^3/uL Nucleated RBC % /100WBC Sodium 130 L (135-145) mmol/L Potassium 3.3 L (3.5-4.5) mmol/L Chloride 96 L (101-111) mmol/L Carbon Dioxide 24 (21-32) mmol/L Anion Gap 10.0 (6-13) BUN 8 (6-20) mg/dL Creatinine 0.7 (0.6-1.3) mg/dL Estimated GFR (MDRD) 81 L (>89) Glucose 270 H (74-104) mg/dL Lactic Acid 1.4 (0.5-2.2) mmol/L Calcium 9.0 (8.5-10.3) mg/dL Total Bilirubin 0.8 (0.2-1.0) mg/dL AST 13 (10-42) IU/L ALT 9 L (10-60) IU/L Alkaline Phosphatase 63 (42-121) IU/L Total Protein 7.3 (6.4-8.9) g/dL Albumin 3.6 (3.2-5.5) g/dL Globulin 3.7 (2.1-4.2) g/dL Albumin/Globulin Ratio 1.0 (1.0-2.2) Lipase < 10 L (11-82) U/L Urine Color YELLOW Urine Clarity CLEAR (CLEAR) Urine pH 5.5 (5.0-7.5) PH Ur Specific [place] >=1.030 H (1.002-1.030) Urine Protein 100 H (NEGATIVE) mg/dL Urine Glucose (UA) 250 H (NEGATIVE) mg/dL Urine Ketones 15 H (NEGATIVE) mg/dL Urine Occult Blood MODERATE H (NEGATIVE) Urine Nitrite NEGATIVE (NEGATIVE) Urine Bilirubin NEGATIVE (NEGATIVE) Urine Urobilinogen 0.2 (NORMAL) (NORMAL) E.U./dL Ur Leukocyte Esterase NEGATIVE (NEGATIVE) Urine RBC 6-10 H (0-5) /HPF Urine WBC 0-3 (0-5) /HPF Ur Squamous Epith Cells FEW Squamous (<= Few) Urine Bacteria Few (None Seen) /HPF Ur Microscopic Review INDICATED Urine Culture Comments NOT INDICATED Nasal Adenovirus (PCR) Nasal B. parapertussis DNA (PCR) Nasal Coronavir 229E PCR Nasal Coronavir HKU1 PCR Nasal Coronavir NL63 PCR Nasal Coronavir OC43 PCR Nasal Enterovir/Rhinovir PCR Nasal Influenza B PCR Nasal Influenza A PCR Nasal Parainfluen 1 PCR Nasal Parainfluen 2 PCR Nasal Parainfluen 3 PCR Nasal Parainfluen 4 PCR Nasal RSV (PCR) Nasal B.pertussis DNA PCR Nasal C.pneumoniae (PCR) [place] Human Metapneumo PCR Nasal M.pneumoniae (PCR) Nasal SARS-CoV-2 (PCR) 10/04/23 10/04/23 Range/Units 16:05 16:00 WBC 17.4 H (4.8-10.8) x10^3/uL RBC 3.93 L (4.20-5.40) 10^6/uL Hgb 10.4 L (12.0-16.0) g/dL Hct 32.9 L (37.0-47.0) % MCV 83.7 (81.0-99.0) fL MCH 26.5 L (27.0-31.0) pg MCHC 31.6 L (32.0-36.0) g/dL RDW 14.4 (12.0-15.0) % Plt Count 201 (130-450) 10^3/uL MPV 10.4 (7.9-10.8) fL Neut # (Auto) 15.4 H (1.5-6.6) 10^3/uL Lymph # (Auto) 0.9 L (1.5-3.5) 10^3/uL [place] # (Auto) 0.9 (0.0-1.0) 10^3/uL Eos # (Auto) 0.0 (0.0-0.7) 10^3/uL Baso # (Auto) 0.1 (0.0-0.1) 10^3/uL Absolute Nucleated RBC 0.00 x10^3/uL Nucleated RBC % 0.0 /100WBC Sodium (135-145) mmol/L Potassium (3.5-4.5) mmol/L Chloride (101-111) mmol/L Carbon Dioxide (21-32) mmol/L Anion Gap (6-13) BUN (6-20) mg/dL Creatinine (0.6-1.3) mg/dL Estimated GFR (MDRD) (>89) Glucose (74-104) mg/dL Lactic Acid (0.5-2.2) mmol/L Calcium (8.5-10.3) mg/dL Total Bilirubin (0.2-1.0) mg/dL AST (10-42) IU/L ALT (10-60) IU/L Alkaline Phosphatase (42-121) IU/L Total Protein (6.4-8.9) g/dL Albumin (3.2-5.5) g/dL Globulin (2.1-4.2) g/dL Albumin/Globulin Ratio (1.0-2.2) Lipase (11-82) U/L Urine Color Urine Clarity (CLEAR) Urine pH (5.0-7.5) PH Ur Specific [place] (1.002-1.030) Urine Protein (NEGATIVE) mg/dL Urine Glucose (UA) (NEGATIVE) mg/dL Urine Ketones (NEGATIVE) mg/dL Urine Occult Blood (NEGATIVE) Urine Nitrite (NEGATIVE) Urine Bilirubin (NEGATIVE) Urine Urobilinogen (NORMAL) E.U./dL Ur Leukocyte Esterase (NEGATIVE) Urine RBC (0-5) /HPF Urine WBC (0-5) /HPF Ur Squamous Epith Cells (<= Few) Urine Bacteria (None Seen) /HPF Ur Microscopic Review Urine Culture Comments Nasal Adenovirus (PCR) NOT DETECTED Nasal B. parapertussis DNA (PCR) NOT DETECTED Nasal Coronavir 229E PCR NOT DETECTED Nasal Coronavir HKU1 PCR NOT DETECTED Nasal Coronavir NL63 PCR NOT DETECTED Nasal Coronavir OC43 PCR NOT DETECTED Nasal Enterovir/Rhinovir PCR NOT DETECTED Nasal Influenza B PCR NOT DETECTED Nasal Influenza A PCR NOT DETECTED Nasal Parainfluen 1 PCR NOT DETECTED Nasal Parainfluen 2 PCR NOT DETECTED Nasal Parainfluen 3 PCR NOT DETECTED Nasal Parainfluen 4 PCR NOT DETECTED Nasal RSV (PCR) NOT DETECTED Nasal B.pertussis DNA PCR NOT DETECTED Nasal C.pneumoniae (PCR) NOT DETECTED [place] Human Metapneumo PCR NOT DETECTED Nasal M.pneumoniae (PCR) NOT DETECTED Nasal SARS-CoV-2 (PCR) NOT DETECTED - Diagnostic Imaging Results Diagnostic Imaging Results: positive: Final report reviewed Diagnostic Imaging Results Comments: RUQUS with significantly dilated gallbladder, thickened GBW (5mm) and +PCF, CBD measures 10mm MRCP (limited/patient noncompliant) CBD 8mm Sepsis Event Note (H) - Evaluation Current Stage of Sepsis: Sepsis Possible source of Sepsis: positive: GI tract/intra-abdominal Confirmed Source and Organism (if known) of Sepsis: gallbladder - Sepsis Criteria Sepsis Criteria: Recorded Temperature greater than 38.3C or Less than 36C, Recorded Heart Rate greater than 90 bpm, WBC count greater than 12,000 or less than 4000 Impression/Plan - Problem List Problem List: 78yF with acute cholecystitis based on focal RUQ pain and tenderness with murpheys sign, WBC 17, and RUQUS demonstrating hydroptic GB with thickened wall and PCF. The CBD is dilated to 10; an MRCP was attemped to evaluate for choledocholithiasis, the patient was poorly compliant and the limited extent of the study did not demonstrate stones. She has a complicated history of biliary instrumentation and evaluation that may account for the dilation. She had IDDM with BG levels in the high 200s in the ED, though reports them well controlled on a normal basis. Discussed the diagnosis of acute cholecystitis with the patient and her daughter, and options of cholecystectomy vs percutaneous cholecystostomy tube. Discussed that given her biliary history, the surgery may be more technically challenging and longer than normal, with the usual risk of pain,bleeding, infection, damage to surrounding structures, need for further procedures, conversion to open surgery. They understand, and desire to proceed with surgery. - To OR now for laparoscopic cholecystectomy with IOC - abx given in ED (c/w her abx allergies) Sydnee Cordova DO FACS General Surgeon
[2023-10-04] MEDS ORDERED: iohexoL-240 10 ML VIAL IVP ONE (21:59)
[2023-10-04] MEDS ORDERED: LIDOCAINE 1%-EPI 1:100000 20 ML MDV ONE (21:59)
[2023-10-04] MEDS ORDERED: BUPIVACAINE 0.25% PF 30 ML VIAL ONE (21:59)
[2023-10-04] MEDS ORDERED: fentaNYL 100 MCG/2 ML VIAL ONE (22:09)
[2023-10-04] MEDS ORDERED: PROPOFOL 200 MG/20 ML VIAL IVP ONE (22:09)
[2023-10-04] MEDS ORDERED: LIDOCAINE-PF 2% 10 ML AMP SUBQ ONE (22:09)
--- NOTE | 2023-10-04 22:11 | ED Physician Documentation ---
ED Addendum - Addendum Addendum: 10/04/23 22:10 Patient received a signout from outgoing physician, please see their do cumentation for further detail. Patient evaluated independently by general surgery, please see their documentation for further detail. Patient sent directly to the OR from the emergency department.
--- NOTE | 2023-10-04 22:13 | ANESTHESIA ---
Pre-Anesthesia VS, & Labs - Diagnosis cholecystitis - Procedure lap tiffany with ioc Vital Signs: Temp Pulse Resp BP Pulse Ox O2 Flow Rate 37.6 C 96 14 124/71 97 10/04/23 21:09 10/04/23 21:36 10/04/23 21:36 10/04/23 21:36 10/04/23 21:36 Height: 5 ft 4 in Weight (kg): 99.79 kg Body Mass Index: 37.8 BMI Classification: Obese - NPO >8 hours - Is Patient ?: No - Lab Results Current Lab Results: Laboratory Tests 10/04/23 16:20: Lactic Acid 1.4 10/04/23 16:05: Sodium 130 L, Potassium 3.3 L, Chloride 96 L, Carbon Dioxide 24, Anion Gap 10.0, BUN 8, Creatinine 0.7, Estimated GFR (MDRD) 81 L, Glucose 270 H, Calcium 9.0, Total Bilirubin 0.8, AST 13, ALT 9 L, Alkaline Phosphatase 63, Total Protein 7.3, Albumin 3.6, Globulin 3.7, Albumin/Globulin Ratio 1.0, Lipase < 10 L 10/04/23 16:05: WBC 17.4 H, RBC 3.93 L, Hgb 10.4 L, Hct 32.9 L, MCV 83.7, MCH 26.5 L, MCHC 31.6 L, RDW 14.4, Plt Count 201, MPV 10.4, Neut # (Auto) 15.4 H, Lymph # (Auto) 0.9 L, [place] # (Auto) 0.9, Eos # (Auto) 0.0, Baso # (Auto) 0.1, Absolute Nucleated RBC 0.00, Nucleated RBC % 0.0 Fish Bones: 10/04/23 16:05 10/04/23 16:05 Home Medications and Allergies Home Medications: Ambulatory Orders Magnesium Oxide [Magnesium] 1 cap PO DAILY 10/04/23 Active Medications Fentanyl (Fentanyl 100 Mcg/2 Ml Vial) 50 mcg IVP PRN PRN PRN Reason: Abdominal Pain Last Admin: 10/04/23 20:51 Dose: 50 mcg Sodium Chloride (Normal Saline 0.9%) 1,000 mls @ 150 mls/hr IV .Q6H40M STA Stop: 10/04/23 22:36 Last Admin: 10/04/23 16:22 Dose: 150 mls/hr Insulin NPH Human Isophane [Humulin N] 120 unit BID 02/14/15 Metoprolol Tartrate 25 mg BID 02/14/15 Multivitamin [Multivitamins] 1 tab DAILY 02/14/15 Tumeric 500 mg PO DAILY 02/14/15 metFORMIN [Glucophage] 500 mg BID 02/14/15 oxyCODONE [Roxicodone] 10 mg PO BID 02/14/15 Acetaminophen/Cod 300/30 [Tylenol #3] 1 tab PO PRN PRN 03/05/20 Cholecalciferol [Vitamin D3] 1 tab PO DAILY 03/05/20 Melatonin/Pyridoxine [Melatonin 5 mg Tablet] 1 tab PO DAILY 03/05/20 Naproxen Sodium [Aleve] 220 mg PO HS 03/05/20 Rosuvastatin Calcium [Crestor] 5 tab PO HS 03/05/20 Magnesium Oxide [Magnesium] 1 cap PO DAILY 10/04/23 Allergies/Adverse Reactions: Allergies Allergy/AdvReac Type Severity Reaction Status Date / Time Cephalosporins Allergy Rash Verified 10/04/23 15:41 codeine Allergy Itching Verified 10/04/23 15:41 colchicine Allergy Rash Verified 10/04/23 15:41 hydromorphone Allergy Unknown Verified 10/04/23 15:41 Penicillins Allergy Anaphylaxis Verified 10/04/23 15:41 Sulfa (Sulfonamide Allergy Anaphylaxis Verified 10/04/23 15:41 Antibiotics) tuberculin,PPD,multi-puncture Allergy Unknown Verified 10/04/23 15:41 vancomycin Allergy Itching Verified 10/04/23 15:41 adhesive tape AdvReac Intermediate Irritation Verified 10/04/23 15:41 (Paper tape OK) allopurinol AdvReac Rash Verified 10/04/23 15:41 aspartame AdvReac Respiratory Verified 10/04/23 15:41 broccoli AdvReac Unknown Verified 10/04/23 15:41 gabapentin AdvReac Unknown Verified 10/04/23 15:41 calcium silicate Allergy Unknown Uncoded 10/04/23 15:41 MSG Allergy Unknown Uncoded 10/04/23 15:41 Anes History & Medical History - Anesthetic History Anesthesia Complications: reports: No previous complications Family history of Anesthesia Complications: Denies Family history of Malignant Hyperthermia: Denies - Medical History Cardiovascular: reports: High cholesterol, Murmur Pulmonary: reports: Asthma, Sleep apnea, CPAP use Gastrointestinal: reports: Ulcers, Diverticulitis Urinary: reports: Retention, Frequency Neuro: reports: None Musculoskeletal: reports: Gout Endocrine/Autoimmune: reports: Type 2 diabetes Skin: reports: Other Smoking Status: Never smoker Psychosocial: reports: Opioid (chronic opiod use with pain management provider) History of Cancer?: No - Surgical History General: reports: Appendectomy (vertical paramedian incision (remote)) Eyes Ears Nose Throat (EENT): reports: Cataracts, Tonsil/Adenoidectomy Cardiothoracic: reports: Cardiac catheterization Gynecologic: reports: Hysterectomy, Other (both uterine and vaginal suspension procedures ) Orthopedic: reports: Knee replacement, Spine surgery Exam General: Alert, Oriented x3, Cooperative Dental: Other (edentulous) Mouth Openin Fingerbreadth Neck Mobility: Reduced Mallampati classification: I Thyromental Distance: less than 4 cm Respiratory: Lungs clear Cardiovascular: Regular rate Plan Anesthesia Type: General Consent for Procedure(s) Verified and Reviewed: Yes Code Status: Attempt Resuscitation ASA classification: 3-Severe systemic disease Is this case an emergency?: Yes
[2023-10-04] MEDS ORDERED: METOCLOPRAMIDE 10 MG/2 ML VIAL IVP PRN (22:14)
[2023-10-04] MEDS ORDERED: MORPHINE 2 MG/ML CARPUJECT IVP PRN (22:14)
[2023-10-04] MEDS ORDERED: ePHEDrine 50 MG/ML VIAL IVP PRN (22:14)
[2023-10-04] MEDS ORDERED: ONDANSETRON 4 MG/2 ML VIAL IVP PRN (22:14)
[2023-10-04] MEDS ORDERED: ATROPINE ABBOJECT 1 MG/10 ML SYRINGE IVP PRN (22:14)
[2023-10-04] MEDS ORDERED: NALOXONE 0.4 MG/ML VIAL IVP PRN (22:14)
[2023-10-04] MEDS ORDERED: ROCURONIUM 50 MG/5 ML VIAL ONE (22:39)
[2023-10-04] MEDS ORDERED: LACTATED RINGERS 1,000 ML IV SCH (23:00)
[2023-10-04] MEDS: LIDOCAINE 1%-EPI 1:100000 20 ML MDV SUBQ ONE ×2 (23:31)
[2023-10-04] MEDS: BUPIVACAINE 0.25% PF 30 ML VIAL SUBQ ONE ×2 (23:31)
[2023-10-04] MEDS: iohexoL-240 10 ML VIAL IVP ONE (23:32)
[2023-10-04] MEDS ORDERED: HYDROmorphone 1 MG/ML CARPUJECT ONE (23:32)
[2023-10-05] MEDS ORDERED: ACETAMINOPHEN 1,000 MG/100 ML 1,000 MG/100 ML BAG IV ONE (00:30)
[2023-10-05] MEDS ORDERED: SUGAMMADEX 200 MG/2 ML VIAL IVP ONE (01:24)
[2023-10-05] MEDS ORDERED: ONDANSETRON 4 MG/2 ML VIAL ONE (01:24)
--- NOTE | 2023-10-05 01:52 | OPERATIVE REPORT ---
Operative Report - General Procedure Date: 10/05/23 Planned Procedure: laparoscopic cholecystectomy and intraoperative cholangiogram Pre-Op Diagnosis: acute cholecystitis, sepsis Procedure Performed: 1. Laparoscopic lysis of adhesions 2. laparoscopic subtotal cholecystectomy, fenestrated Post Op Diagnosis: gangrenous cholecystitis, gallbladder hydrops - Procedure Note Primary Surgeon: Sydnee Cordova Anesthesia Provider: Renuka Cespedes Anesthesia Technique: General ET tube Pathology: gallbladder, subtotal IV Fluids (mL): 1,500 Estimated Blood Loss (mL): 60 Urine Output (mL): 150 Drain/Tube Type: Bladimir Hickey flat drain Indications: history of acute cholecystitis managed with percutaneous cholecystostomy tube in 2019, followed by multiple ERCP/EUS/biliary stenting and brushing procedures. Cholecystostomy tube was removed and patient has had symptoms of chronic cholecystitis since then. Now with 3d of h/p c/w acute cholecystitis and sepsis. Findings: omental adhesions to anterior abdominal wall precluding placement of trocars, taken down with ligasure. Hydroptic gallbladder aspirated - >200cc of foul smelling brown purulent fluid. Necrotic gallbladder with wall >5mm thick. Cystic triangle densely scarred from chronic infection and prior history. Subtotal cholecystectomy completed - back wall left in situ on liver, cuff of gallbladder wall left around cystic duct os visualized from inside the opened gallbladder, an impacted stone was visualized within the cystic duct, there was no flow of bile out of the cystic duct. The cuff of gallbladder was left open (fenestrated; NOT reconstituted/closed to recreate a remnant gallbladder). A PIETRO drain was placed next to the cystic duct os and in the dependent position below it. Complications: closing count missing EYAD Pelletier obtained
[2023-10-05] MEDS: LACTATED RINGERS 600 ML IV ONE (02:21)
[2023-10-05] MEDS: fentaNYL 100 MCG/2 ML VIAL IVP PRN ×2 (02:30→02:45)
[2023-10-05] MEDS ORDERED: ONDANSETRON 4 MG/2 ML VIAL IVP PRN (02:34)
[2023-10-05] MEDS ORDERED: METOCLOPRAMIDE 10 MG/2 ML VIAL IVP PRN (02:34)
[2023-10-05] MEDS ORDERED: NALOXONE 0.4 MG/ML VIAL IVP PRN (02:34)
[2023-10-05] MEDS ORDERED: HYDROmorphone 0.5 MG/0.5 ML SYRINGE IVP PRN (02:34)
[2023-10-05] MEDS ORDERED: HYDROmorphone 1 MG/ML CARPUJECT ONE (02:34)
[2023-10-05] MEDS ORDERED: MORPHINE 2 MG/ML CARPUJECT IVP PRN (02:34)
[2023-10-05] MEDS ORDERED: ATROPINE ABBOJECT 1 MG/10 ML SYRINGE IVP PRN (02:34)
[2023-10-05] MEDS ORDERED: fentaNYL 100 MCG/2 ML VIAL ONE (02:34)
[2023-10-05] MEDS ORDERED: ePHEDrine 50 MG/ML VIAL IVP PRN (02:34)
[2023-10-05] MEDS: HYDROmorphone 0.5 MG/0.5 ML SYRINGE IVP PRN ×2 (02:35→04:50)
[2023-10-05] MEDS ORDERED: LACTATED RINGERS 1,000 ML IV SCH (03:00)
[2023-10-05] MEDS: KETAMINE 500 MG/10 ML VIAL IVP STA (03:00)
[2023-10-05] MEDS: LACTATED RINGERS 1,000 ML IV SCH (03:00)
--- NOTE | 2023-10-05 03:13 | ANESTHESIA POST OP EVALUATION ---
Anesthesia Post Eval - Post Anesthesia Eval Vitals: Last Vital Signs Temp 36.1 C L 10/05/23 03:05 Pulse 78 10/05/23 03:05 Resp 14 10/05/23 03:05 BP 116/60 10/05/23 03:05 Pulse Ox 98 10/05/23 03:05 O2 Flow Rate CV Function Including HR & BP: Stable Pain Control: Satisfactory Nausea & Vomiting: Negative Mental Status: Baseline Respiratory Status: Airway Patent Hydration Status: Satisfactory Anesthesia Complications: None
[2023-10-05] MEDS: metroNIDAZOLE 500 MG/100 ML 500 MG/100 ML BAG IV SCH (04:17)
[2023-10-05] MEDS: METOPROLOL 5 MG/5 ML VIAL IVP STA (04:51)
[2023-10-05] MEDS ORDERED: oxyCODONE 5 MG TABLET PO PRN (05:15)
--- NOTE | 2023-10-05 06:14 | XRAY Report ---
PROCEDURE: Abdomen 1 V INDICATIONS: RETAINED INSTRUMENTS TECHNIQUE: One view of the abdomen acquired. COMPARISON: None. FINDINGS: Surgical changes and devices: Lumbar spine fusion hardware and intervertebral disc spacer. Right uppe r quadrant PIETRO drain and suction bulb are seen. No other radiodense foreign body.. Bowel: Paucity of bowel gas. No air-filled dilated bowel loops. Minimal retained stool.. Soft tissues: No suspicious abdominal calcifications. Visualized solid organ contours appear normal in size. Bones: No suspicious bony lesions. IMPRESSION: No radiodense foreign bodies to suggest retained surgical instrument. Expected postoperative findings. Final interpretation concordant with preliminary report. Reviewed by: Christina Mccray MD on 10/05/2023 6:13 AM PDT Approved by: Christina Mccray MD on 10/05/2023 6:13 AM PDT Station ID: [id number]
[2023-10-05 06:22] LABS: BASOPHILS % (AUTO) 0.4 %; EOSINOPHILS % (AUTO) 0.1 %; HCT - HEMATOCRIT 29.8 % (37.0-47.0); LYMPHOCYTES # (AUTO) 1.1 10^3/uL (1.5-3.5); LYMPHOCYTES % (AUTO) 10.2 %; MEAN CORPUSCULAR HEMOGLOBIN 25.8 pg (27.0-31.0); MEAN CORPUSCULAR HGB CONC 30.2 g/dL (32.0-36.0); MEAN CORPUSCULAR VOLUME 85.4 fL (81.0-99.0); MONOCYTES # (AUTO) 0.7 10^3/uL (0.0-1.0); MONOCYTES % (AUTO) 6.2 %; NEUTROPHILS # (AUTO) 8.9 10^3/uL (1.5-6.6); NEUTROPHILS % (AUTO) 82.1 %; PLT - PLATELET COUNT 163 10^3/uL (130-450); RED BLOOD COUNT 3.49 10^6/uL (4.20-5.40); RED CELL DISTRIBUTION WIDTH 14.6 % (12.0-15.0); WHITE BLOOD COUNT 10.9 x10^3/uL (4.8-10.8)
[2023-10-05] MEDS: ACETAMINOPHEN 1,000 MG/100 ML 1,000 MG/100 ML BAG IV SCH (06:32)
[2023-10-05 06:55] LABS: ALBUMIN 2.9 g/dL (3.2-5.5); ALBUMIN/GLOBULIN RATIO 0.9 (1.0-2.2); BILIRUBIN,TOTAL 0.6 mg/dL (0.2-1.0); CALCIUM 8.3 mg/dL (8.5-10.3); CREATININE 0.7 mg/dL (0.6-1.3); POTASSIUM 3.2 mmol/L (3.5-4.5)
[2023-10-05] MEDS: MORPHINE PCA 50 MG IV PRN ×2 (07:13→16:02)
[2023-10-05] MEDS: cefTRIAXone 1 GM VIAL IVP SCH (08:12)
[2023-10-05] MEDS: INSULIN LISPRO 300 UNIT/3 ML PEN SUBQ SCH ×2 (08:12→17:58)
[2023-10-05] MEDS: SODIUM CHLORIDE FLUSH 0.9% 10 ML SYRINGE IVP SCH (10:24)
[2023-10-05] MEDS: SODIUM CHLORIDE 0.9% 1,000 ML IV SCH (10:24)
[2023-10-05 11:15] LABS: ESTIMATED AVERAGE GLUCOSE 151 mg/dL (70-100); HEMOGLOBIN A1c% 6.9 % (4.27-6.07)
[2023-10-05] MEDS: polyethylene glycoL 3350 17 GM PACKET PO SCH (11:45)
[2023-10-05] MEDS: KETOROLAC 15 MG/ML VIAL IVP STA (11:46)
[2023-10-05] MEDS: ONDANSETRON 4 MG/2 ML VIAL IVP PRN (11:46)
[2023-10-05] MEDS: POTASSIUM CHLORIDE 20 MEQ TABLET PO ONE (11:47)
[2023-10-05] MEDS: oxyCODONE 5 MG TABLET PO SCH (11:47)
[2023-10-05] MEDS: PANTOPRAZOLE 40 MG TABLET PO SCH (12:10)
--- NOTE | 2023-10-05 13:45 | PHARMACY PROGRESS NOTE ---
- Best Possible Medication History Admit Date and Time: 10/05/23 0209 Processed by: Nursing Medications reviewed in ED?: Yes Medication History completed: Yes Patient Interview: Completed Secondary Source(s): Pharmacy records, Insurance records As the person ultimately responsible for medication therapy, providers are able to order a medication from an existing home medication list in [facility] via the "Reconcile Routine" prior to Confirmation of that medication by director decision support. Such practice is discouraged except when the physician, in their clinical judgment, deems that a medical need exists for a medication without regard to previous use.
[2023-10-05] MEDS: HEPARIN 5,000 UNIT/ML VIAL SUBQ SCH (14:36)
[2023-10-05] MEDS: DOCUSATE SODIUM 100 MG CAPSULE PO SCH (17:57)
[2023-10-05] MEDS ORDERED: MORPHINE PCA 50 MG IV PRN ×2 (18:39→18:50)
--- NOTE | 2023-10-05 19:11 | PROVIDER PROGRESS NOTE ---
Subjective - General Admit Date: 10/05/23 Procedure Date: 10/04/23 Post Op Days: 1 Procedure Performed: laparoscopic subtotal (fenestrated) cholecystectomy - Review of Systems Wound/Incisions: positive: Healing well Drain Type: PIETRO drain Drain Output Description: serosanguinous Approximate mls Output: 30cc - Other Other Information/Narrative: Seen this AM at 10AM. POD1 s/p lap subtotal cholecystectomy. HD normal on [facility] since finishing in OR around 3AM - HR 60-70, SBP ~ 1 05, WBC down to 10 from 17. BG 200s. Poor pain control overnight - patient uses narcotics at home on pain contract and required morphine [employer] overnight, also has multiple allergies (to include NSAIDS and gabapentin). Tolerated regular diet earlier, now mild nausea this AM, but overall improvement in abdominal pain as compared to preop. Objective - Patient Data Reviewed Vital Signs: Yes Vital Signs: Vital Signs x48h Temp Pulse Pulse Resp BP Pulse Ox O2 Flow Rate 10/05/23 18:00 22 10/05/23 17:00 20 10/05/23 15:57 18 10/05/23 15:35 36.2 C L 79 18 99/45 L 98 2 10/05/23 14:50 18 10/05/23 13:18 74 16 2 Weight: Weight 10/03/23 10/04/23 10/05/23 23:59 23:59 23:59 Weight (kg) 99.79 kg Intake & Output: Intake and Output Totals x24h 10/03/23 10/04/23 10/05/23 23:59 23:59 23:59 Intake Total 2040 2181.583 Output Total 132 Balance 0 2049.583 - Lab Results Lab Results: 10/05/23 06:13 10/05/23 06:13 Other Lab Results: Lab Results x24hrs 10/05/23 10/05/23 10/05/23 Range/Units 16:44 11:34 07:27 WBC (4.8-10.8) x10^3/uL RBC (4.20-5.40) 10^6/uL Hgb (12.0-16.0) g/dL Hct (37.0-47.0) % MCV (81.0-99.0) fL MCH (27.0-31.0) pg MCHC (32.0-36.0) g/dL RDW (12.0-15.0) % Plt Count (130-450) 10^3/uL MPV (7.9-10.8) fL Neut # (Auto) (1.5-6.6) 10^3/uL Lymph # (Auto) (1.5-3.5) 10^3/uL [place] # (Auto) (0.0-1.0) 10^3/uL Eos # (Auto) (0.0-0.7) 10^3/uL Baso # (Auto) (0.0-0.1) 10^3/uL Absolute Nucleated RBC x10^3/uL Nucleated RBC % /100WBC Sodium (135-145) mmol/L Potassium (3.5-4.5) mmol/L Chloride (101-111) mmol/L Carbon Dioxide (21-32) mmol/L Anion Gap (6-13) BUN (6-20) mg/dL Creatinine (0.6-1.3) mg/dL Estimated GFR (MDRD) (>89) Glucose (74-104) mg/dL POC Whole Bld Glucose 240 H 277 H 226 H (70 - 100) mg/dL Estimat Average Glucose (70-100) mg/dL Hemoglobin A1c % (4.27-6.07) % Calcium (8.5-10.3) mg/dL Total Bilirubin (0.2-1.0) mg/dL AST (10-42) IU/L ALT (10-60) IU/L Alkaline Phosphatase (42-121) IU/L Total Protein (6.4-8.9) g/dL Albumin (3.2-5.5) g/dL Globulin (2.1-4.2) g/dL Albumin/Globulin Ratio (1.0-2.2) 10/05/23 10/05/23 10/05/23 Range/Units 06:13 06:13 06:13 WBC 10.9 H (4.8-10.8) x10^3/uL RBC 3.49 L (4.20-5.40) 10^6/uL Hgb 9.0 L (12.0-16.0) g/dL Hct 29.8 L (37.0-47.0) % MCV 85.4 (81.0-99.0) fL MCH 25.8 L (27.0-31.0) pg MCHC 30.2 L (32.0-36.0) g/dL RDW 14.6 (12.0-15.0) % Plt Count 163 (130-450) 10^3/uL MPV 10.0 (7.9-10.8) fL Neut # (Auto) 8.9 H (1.5-6.6) 10^3/uL Lymph # (Auto) 1.1 L (1.5-3.5) 10^3/uL [place] # (Auto) 0.7 (0.0-1.0) 10^3/uL Eos # (Auto) 0.0 (0.0-0.7) 10^3/uL Baso # (Auto) 0.0 (0.0-0.1) 10^3/uL Absolute Nucleated RBC 0.00 x10^3/uL Nucleated RBC % 0.0 /100WBC Sodium 136 (135-145) mmol/L Potassium 3.2 L (3.5-4.5) mmol/L Chloride 102 (101-111) mmol/L Carbon Dioxide 27 (21-32) mmol/L Anion Gap 7.0 (6-13) BUN 9 (6-20) mg/dL Creatinine 0.7 (0.6-1.3) mg/dL Estimated GFR (MDRD) 81 L (>89) Glucose 227 H (74-104) mg/dL POC Whole Bld Glucose (70 - 100) mg/dL Estimat Average Glucose 151 H (70-100) mg/dL Hemoglobin A1c % 6.9 H (4.27-6.07) % Calcium 8.3 L (8.5-10.3) mg/dL Total Bilirubin 0.6 (0.2-1.0) mg/dL AST 24 (10-42) IU/L ALT 13 (10-60) IU/L Alkaline Phosphatase 54 (42-121) IU/L Total Protein 6.0 L (6.4-8.9) g/dL Albumin 2.9 L (3.2-5.5) g/dL Globulin 3.1 (2.1-4.2) g/dL Albumin/Globulin Ratio 0.9 L (1.0-2.2) - Current Medications Current Medications: Current Medications Generic Name Dose Route Start Last Admin Trade Name Freq PRN Reason Stop Dose Admin Ceftriaxone Sodium 1 gm 10/05/23 09:00 10/05/23 08:12 Ceftriaxone 1 Gm Vial IVP 1 gm DAILY TESSY Administration Docusate Sodium 200 mg 10/05/23 18:00 10/05/23 17:57 Docusate Sodium 100 Mg Capsule PO 200 mg DAILY TESSY Administration Heparin Sodium (Porcine) 5,000 unit 10/05/23 14:00 10/05/23 14:36 Heparin 5,000 Unit/Ml Vial SUBQ 5,000 unit TID TESSY Administration Hydromorphone HCl 0.2 mg 10/05/23 02:34 10/05/23 18:37 Hydromorphone 0.5 Mg/0.5 Ml Syringe IVP 0.2 mg Q2H PRN Administration Severe Pain (Level 7-10) Acetaminophen 1,000 mg in 100 mls @ 400 mls/hr 10/05/23 06:00 10/05/23 17:59 Acetaminophen IV 400 mls/hr Q6HR TESSY Administration Metronidazole 500 mg in 100 mls @ 100 mls/hr 10/05/23 04:00 10/05/23 14:39 Flagyl 500 Mg/100 Ml IV Infused Q8H TESSY Infusion Insulin Human Lispro 1 - 9 unit 10/05/23 17:00 10/05/23 17:58 Insulin Lispro 300 Unit/3 Ml Pen SUBQ 5 unit 0800,1200,1700,2100 TESSY Administration Protocol Ondansetron HCl 4 mg 10/05/23 02:34 10/05/23 11:46 Ondansetron 4 Mg/2 Ml Vial IVP 4 mg Q6H PRN Administration Nausea / Vomiting Oxycodone HCl 15 mg 10/05/23 11:00 10/05/23 16:23 Oxycodone 5 Mg Tablet PO 15 mg BIDWM TESSY Administration Pantoprazole Sodium 40 mg 10/05/23 12:00 10/05/23 12:10 Pantoprazole 40 Mg Tablet PO 40 mg QDAC TESSY Administration Polyethylene Glycol 17 gm 10/05/23 11:04 10/05/23 11:45 Polyethylene Glycol 3350 17 Gm Packet PO 17 gm BID TESSY Administration Sodium Chloride 10 ml 10/05/23 09:00 06/16/24 17:59 Sodium Chloride Flush 0.9% 10 Ml Syringe IVP 10 ml 0100,0900,1700 TESSY Administration - Physical Exam Wound/Incisions: positive: Dressing dry and intact General Appearance: positive: No acute distress, Alert Respiratory: positive: Wheezes Cardiovascular: positive: Regular rate & rhythm Abdomen: positive: Tenderness (about incisions and in RUQ, not elsewhere, less than pre op) Skin: positive: Color nml Extremities: positive: Full ROM Neurologic/Psychiatric: positive: Oriented x3 ABX Reporting Has patient been on IV antibiotics over the past 48 hours?: Yes Impression/Plan - Problem List Problem List: 78yoF POD1 s/p laparoscopic subtotal cholecystectomy (fenestrated), for acute gangrenous cholecystitis and e coli bacteremia, with PIETRO drain in place - draining only ssf, no bile leak at this time. HD normal, resolving WBC and normal LFTs, stable/normal creatinine, poor pain control. Pain controL: - scheduled IV tylenol, home oxycodone dose (10mg BID), morphine [employer] (discussed weaning quickly with patient) - cannot have gabapentin or NSAID GI: - Regular diet, DC IVF, PRN zofran - continue PIETRO drain to monitor for bile leak with subtotal cholecystectomy - resume home bowel regimen (qHS colace) plus BID miralax Gangrenous Cholecystitis + E coli bacteremia - continue current abx (in accordance with multiple allergies) until sensitivities result, ideally can complete course of abx for bacteremia with a PO option IDDM, BGs in 200s - hold home metformin, started on half home basal insulin + LDSSI, will titrate as needed DVT ppx - SCDs, start hep TID Home statin, PPI, prn albuterol Sydnee Cordova DO FACS General Surgeon
[2023-10-05] MEDS: INSULIN GLARGINE-YFGN 300 UNIT/3 ML PEN SUBQ SCH (21:07)
[2023-10-05] MEDS: ATORVASTATIN 10 MG TABLET PO SCH (21:08)
[2023-10-05] MEDS: ALBUTEROL NEB 2.5 MG/3 ML INH ONE (22:11)
[2023-10-06] MEDS: KETOROLAC 15 MG/ML VIAL IVP STA (04:48)
[2023-10-06 05:31] LABS: BASOPHILS % (AUTO) 0.3 %; EOSINOPHILS # (AUTO) 0.1 10^3/uL (0.0-0.7); EOSINOPHILS % (AUTO) 0.8 %; HCT - HEMATOCRIT 27.6 % (37.0-47.0); HGB - HEMOGLOBIN 8.3 g/dL (12.0-16.0); LYMPHOCYTES # (AUTO) 0.9 10^3/uL (1.5-3.5); LYMPHOCYTES % (AUTO) 12.9 %; MEAN CORPUSCULAR HEMOGLOBIN 25.9 pg (27.0-31.0); MEAN CORPUSCULAR HGB CONC 30.1 g/dL (32.0-36.0); MEAN PLATELET VOLUME 10.8 fL (7.9-10.8); MONOCYTES # (AUTO) 0.5 10^3/uL (0.0-1.0); MONOCYTES % (AUTO) 7.4 %; NEUTROPHILS # (AUTO) 5.1 10^3/uL (1.5-6.6); NEUTROPHILS % (AUTO) 77.8 %; PLT - PLATELET COUNT 171 10^3/uL (130-450); RED BLOOD COUNT 3.21 10^6/uL (4.20-5.40); RED CELL DISTRIBUTION WIDTH 14.8 % (12.0-15.0); WHITE BLOOD COUNT 6.6 x10^3/uL (4.8-10.8)
[2023-10-06 05:49] LABS: ALBUMIN 2.7 g/dL (3.2-5.5); ALBUMIN/GLOBULIN RATIO 0.9 (1.0-2.2); BILIRUBIN,TOTAL 0.3 mg/dL (0.2-1.0); CALCIUM 8.1 mg/dL (8.5-10.3); CREATININE 0.7 mg/dL (0.6-1.3); POTASSIUM 3.3 mmol/L (3.5-4.5); TOTAL PROTEIN 5.8 g/dL (6.4-8.9)
[2023-10-06] MEDS: ACETAMINOPHEN 325 MG TABLET PO SCH (08:20)
[2023-10-06] MEDS: MAGNESIUM OXIDE 400 MG TABLET PO SCH (08:20)
[2023-10-06] MEDS: POTASSIUM CHLORIDE 20 MEQ TABLET PO ONE (08:20)
[2023-10-06] MEDS: FAMOTIDINE 20 MG TABLET PO SCH (08:21)
[2023-10-06] MEDS: CHOLECALCIFEROL 25 MCG TABLET PO SCH (08:21)
[2023-10-06] MEDS: METOPROLOL TARTRATE 50 MG TABLET PO SCH (08:22)
[2023-10-06] MEDS: INSULIN LISPRO 300 UNIT/3 ML PEN SUBQ SCH (08:25)
--- NOTE | 2023-10-06 09:02 | PROVIDER PROGRESS NOTE ---
Subjective - General Admit Date: 10/05/23 Procedure Date: 10/04/23 Post Op Days: 2 Procedure Performed: laparoscopic subtotal (fenestrated) cholecystectomy - Review of Systems Wound/Incisions: positive: Dressing dry and intact Drain Type: PIETRO drain Drain Output Description: serosanguinous Approximate mls Output: 82 - Other Other Information/Narrative: Patient having difficulty with pain control, did not feel morphine or dilaudid helped much, willing to try PO pain regimen. Tolerating diet, no n/v. No BM yet, and states she's been constipated since prior to admission. No f/c. She has not been out of bed since surgery. Objective - Patient Data Reviewed Vital Signs: Yes Vital Signs: Vital Signs x48h Temp Pulse Resp BP Pulse Ox 10/06/23 04:14 36.6 C 80 20 105/48 L 92 Weight: Weight 10/04/23 10/05/23 10/06/23 23:59 23:59 23:59 Weight (kg) 99.79 kg Intake & Output: Intake and Output Totals x24h 10/04/23 10/05/23 10/06/23 23:59 23:59 23:59 Intake Total 2040 2918.583 300 Output Total 182 420 Balance 2040 2736.583 -120 - Lab Results Lab Results: 10/06/23 05:17 10/06/23 05:17 Other Lab Results: Lab Results x24hrs 10/06/23 10/06/23 10/06/23 Range/Units 07:30 05:17 05:17 WBC (4.8-10.8) x10^3/uL RBC (4.20-5.40) 10^6/uL Hgb (12.0-16.0) g/dL Hct (37.0-47.0) % MCV (81.0-99.0) fL MCH (27.0-31.0) pg MCHC (32.0-36.0) g/dL RDW (12.0-15.0) % Plt Count (130-450) 10^3/uL MPV (7.9-10.8) fL Neut # (Auto) (1.5-6.6) 10^3/uL Lymph # (Auto) (1.5-3.5) 10^3/uL Young # (Auto) (0.0-1.0) 10^3/uL Eos # (Auto) (0.0-0.7) 10^3/uL Baso # (Auto) (0.0-0.1) 10^3/uL Absolute Nucleated RBC x10^3/uL Nucleated RBC % /100WBC Sodium 136 (135-145) mmol/L Potassium 3.3 L (3.5-4.5) mmol/L Chloride 105 (101-111) mmol/L Carbon Dioxide 25 (21-32) mmol/L Anion Gap 6.0 (6-13) BUN 9 (6-20) mg/dL Creatinine 0.7 (0.6-1.3) mg/dL Estimated GFR (MDRD) 81 L (>89) Glucose 258 H (74-104) mg/dL POC Whole Bld Glucose 240 H (70 - 100) mg/dL Estimat Average Glucose (70-100) mg/dL Hemoglobin A1c % (4.27-6.07) % Calcium 8.1 L (8.5-10.3) mg/dL Magnesium 1.6 L (1.7-2.3) mg/dL Total Bilirubin 0.3 (0.2-1.0) mg/dL AST 13 (10-42) IU/L ALT 11 (10-60) IU/L Alkaline Phosphatase 52 (42-121) IU/L Total Protein 5.8 L (6.4-8.9) g/dL Albumin 2.7 L (3.2-5.5) g/dL Globulin 3.1 (2.1-4.2) g/dL Albumin/Globulin Ratio 0.9 L (1.0-2.2) 10/06/23 10/05/23 10/05/23 Range/Units 05:17 20:42 16:44 WBC 6.6 (4.8-10.8) x10^3/uL RBC 3.21 L (4.20-5.40) 10^6/uL Hgb 8.3 L (12.0-16.0) g/dL Hct 27.6 L (37.0-47.0) % MCV 86.0 (81.0-99.0) fL MCH 25.9 L (27.0-31.0) pg MCHC 30.1 L (32.0-36.0) g/dL RDW 14.8 (12.0-15.0) % Plt Count 171 (130-450) 10^3/uL MPV 10.8 (7.9-10.8) fL Neut # (Auto) 5.1 (1.5-6.6) 10^3/uL Lymph # (Auto) 0.9 L (1.5-3.5) 10^3/uL Young # (Auto) 0.5 (0.0-1.0) 10^3/uL Eos # (Auto) 0.1 (0.0-0.7) 10^3/uL Baso # (Auto) 0.0 (0.0-0.1) 10^3/uL Absolute Nucleated RBC 0.00 x10^3/uL Nucleated RBC % 0.0 /100WBC Sodium (135-145) mmol/L Potassium (3.5-4.5) mmol/L Chloride (101-111) mmol/L Carbon Dioxide (21-32) mmol/L Anion Gap (6-13) BUN (6-20) mg/dL Creatinine (0.6-1.3) mg/dL Estimated GFR (MDRD) (>89) Glucose (74-104) mg/dL POC Whole Bld Glucose 255 H 240 H (70 - 100) mg/dL Estimat Average Glucose (70-100) mg/dL Hemoglobin A1c % (4.27-6.07) % Calcium (8.5-10.3) mg/dL Magnesium (1.7-2.3) mg/dL Total Bilirubin (0.2-1.0) mg/dL AST (10-42) IU/L ALT (10-60) IU/L Alkaline Phosphatase (42-121) IU/L Total Protein (6.4-8.9) g/dL Albumin (3.2-5.5) g/dL Globulin (2.1-4.2) g/dL Albumin/Globulin Ratio (1.0-2.2) 10/05/23 10/05/23 Range/Units 11:34 06:13 WBC (4.8-10.8) x10^3/uL RBC (4.20-5.40) 10^6/uL Hgb (12.0-16.0) g/dL Hct (37.0-47.0) % MCV (81.0-99.0) fL MCH (27.0-31.0) pg MCHC (32.0-36.0) g/dL RDW (12.0-15.0) % Plt Count (130-450) 10^3/uL MPV (7.9-10.8) fL Neut # (Auto) (1.5-6.6) 10^3/uL Lymph # (Auto) (1.5-3.5) 10^3/uL Young # (Auto) (0.0-1.0) 10^3/uL Eos # (Auto) (0.0-0.7) 10^3/uL Baso # (Auto) (0.0-0.1) 10^3/uL Absolute Nucleated RBC x10^3/uL Nucleated RBC % /100WBC Sodium (135-145) mmol/L Potassium (3.5-4.5) mmol/L Chloride (101-111) mmol/L Carbon Dioxide (21-32) mmol/L Anion Gap (6-13) BUN (6-20) mg/dL Creatinine (0.6-1.3) mg/dL Estimated GFR (MDRD) (>89) Glucose (74-104) mg/dL POC Whole Bld Glucose 277 H (70 - 100) mg/dL Estimat Average Glucose 151 H (70-100) mg/dL Hemoglobin A1c % 6.9 H (4.27-6.07) % Calcium (8.5-10.3) mg/dL Magnesium (1.7-2.3) mg/dL Total Bilirubin (0.2-1.0) mg/dL AST (10-42) IU/L ALT (10-60) IU/L Alkaline Phosphatase (42-121) IU/L Total Protein (6.4-8.9) g/dL Albumin (3.2-5.5) g/dL Globulin (2.1-4.2) g/dL Albumin/Globulin Ratio (1.0-2.2) - Current Medications Current Medications: Current Medications Generic Name Dose Route Start Last Admin Trade Name Freq PRN Reason Stop Dose Admin Acetaminophen 650 mg 10/06/23 09:00 10/06/23 08:20 Acetaminophen 325 Mg Tablet PO 650 mg Q4HR TESSY Administration Atorvastatin Calcium 10 mg 10/05/23 21:00 10/05/23 21:08 Atorvastatin 10 Mg Tablet PO 10 mg QPM [facility] Administration Ceftriaxone Sodium 1 gm 10/05/23 09:00 10/06/23 08:29 Ceftriaxone 1 Gm Vial IVP 1 gm DAILY TESSY Administration Cholecalciferol 25 mcg 10/06/23 09:00 10/06/23 08:21 Cholecalciferol 25 Mcg Tablet PO 25 mcg DAILY TESSY Administration Docusate Sodium 200 mg 10/05/23 18:00 10/06/23 08:20 Docusate Sodium 100 Mg Capsule PO 200 mg DAILY TESSY Administration Famotidine 20 mg 10/06/23 09:00 10/06/23 08:21 Famotidine 20 Mg Tablet PO 20 mg DAILY [facility] Administration Heparin Sodium (Porcine) 5,000 unit 10/05/23 14:00 10/06/23 06:38 Heparin 5,000 Unit/Ml Vial SUBQ 5,000 unit TID [facility] Administration Metronidazole 500 mg in 100 mls @ 100 mls/hr 10/05/23 04:00 10/06/23 05:00 Flagyl 500 Mg/100 Ml IV Infused Q8H [facility] Infusion Insulin Glargine-yfgn 5 unit 10/05/23 21:00 10/05/23 21:07 Insulin Glargine-Yfgn 300 Unit/3 Ml Pen SUBQ Not Given QPM [facility] Insulin Human Lispro 1 - 9 unit 10/05/23 17:00 10/06/23 08:28 Insulin Lispro 300 Unit/3 Ml Pen SUBQ Not Given 0800,1200,1700,2100 [facility] Protocol Insulin Human Lispro 2 - 10 unit 10/06/23 08:00 10/06/23 08:25 Insulin Lispro 300 Unit/3 Ml Pen SUBQ 6 unit 0800,1200,1700,2100 [facility] Administration Protocol Magnesium Oxide 400 mg 10/06/23 08:00 10/06/23 08:20 Magnesium Oxide 400 Mg Tablet PO 400 mg DAILYWM [facility] Administration Metoprolol Tartrate 25 mg 10/06/23 09:00 10/06/23 08:22 Metoprolol Tartrate 50 Mg Tablet PO Not Given BID [facility] Ondansetron HCl 4 mg 10/05/23 02:34 10/06/23 04:44 Ondansetron 4 Mg/2 Ml Vial IVP 4 mg Q6H PRN Administration Nausea / Vomiting Polyethylene Glycol 17 gm 10/05/23 11:04 10/06/23 08:22 Polyethylene Glycol 3350 17 Gm Packet PO 17 gm BID TESSY Administration Sodium Chloride 10 ml 10/05/23 09:00 10/06/23 08:28 Sodium Chloride Flush 0.9% 10 Ml Syringe IVP 10 ml 0100,0900,1700 TESSY Administration - Physical Exam Wound/Incisions: positive: Healing well, Dressing dry and intact, Drainage (PIETRO serosang) General Appearance: positive: No acute distress, Alert Eyes Bilateral: positive: PERRL, EOMI ENT: positive: No signs of dehydration Neck: positive: Trachea midline Respiratory: positive: No respiratory distress Cardiovascular: positive: Regular rate & rhythm Abdomen: positive: Tenderness (incisional). negative: Guarding, Rebound Skin: positive: No rash Extremities: positive: Full ROM Neurologic/Psychiatric: positive: Oriented x3 ABX Reporting Has patient been on IV antibiotics over the past 48 hours?: Yes Impression/Plan - Problem List Problem List: 78 y/o F with: 1. acute on chronic gangrenous cholecystitis and e coli bacterremia - POD#2 s/p laparoscopic subtotal cholecystectomy (fenestrated) (10/04/23) - PIETRO drain in place, non bilious output - leukocytosis has resolved - transition to PO, mulitmodal pain approach with prn IV meds for breakthrough pain - await blood cx results to taper and hopefully transition to po abx. GNB in 2/2 blood cx drawn at time of admission. PCR shows e coli, cx growth and sensitivities pending. Currently on rocephin and flagyl. Pain controL: - scheduled PO tylenol, scheduled oxycodone (5mg q4h), additional 5mg po q4h oxycodone prn, naproxen prn (patient takes this daily at home despite report of allergy to NSAIDs) - allergy to gabapentin 2. DM - changed to carb control diet - sugars poorly controlled in hospital - medicine consulted today, appreciate recommendations 3. constipation - bowel regiment with colace, miralax, will add suppository when pt able to get out of bed with PT 4. hypokalemia, hypomagnesemia - repleting PO this AM 5. hpl, NELLY, h/o PUD, gout, lymphoma, chronic pain - restarted home meds - CPAP ordered today DVT ppx - SCDs, hep TID PT/OT eval ordered to increase activity today. Patient inpatient with need for continued inpatient IV abx until cx back, then hopefully narrow to PO abx. Patient also struggling with pain control.
[2023-10-06] MEDS: HYDROmorphone 0.5 MG/0.5 ML SYRINGE IVP PRN (10:14)
[2023-10-06] MEDS: MAGNESIUM OXIDE 400 MG TABLET PO ONE (10:48)
[2023-10-06] MEDS: oxyCODONE 5 MG TABLET PO SCH (12:05)
[2023-10-06] MEDS: DICYCLOMINE 10 MG CAPSULE PO PRN (12:05)
[2023-10-06] MEDS: INSULIN REGULAR, HUMAN 300 UNIT/3 ML PEN SUBQ SCH (12:08)
[2023-10-06] MEDS: METOCLOPRAMIDE 10 MG TABLET PO PRN (14:56)
[2023-10-06] MEDS: SIMETHICONE CHEW 80 MG TABLET PO PRN (14:56)
[2023-10-06] MEDS: MAGNESIUM HYDROXIDE 2,400 MG/30 ML UDC PO ONE (14:56)
[2023-10-06] MEDS: oxyCODONE 5 MG TABLET PO PRN (14:57)
--- NOTE | 2023-10-06 16:25 | CONSULTATION NOTE ---
Referring Provider Name of Referring Provider:: Dr Mullen Consult Date: 10/06/23 Chief Complaint - Chief Complaint Chief Complaint: High blood sugars History of Present Illness - Admitted From Admitted From:: Emergency department - History of Present Illness HPI Comment/Other: Patient is a 78-year-old female with a PMH of type 2 diabetes, HLD, asthma, sleep apnea, Myeloma, and chronic pelvic pain on a pain contract who presented to the ED with 3-day history of RUQ abdominal pain, anorexia and nausea. She reported a Long history of gallbladder disease and following a percutaneous cholecystostomy tube that was placed for acute cholecystitis around 2019. The tube was removed but not followed with a subsequent cholecystectomy. She then had multiple ERCP, EUS procedures and at one point was worked up for possible neoplasm. Since then she has had chronic right scapular pain with meals which got significantly worse during the week of admission. On admission, an abdominal ultrasound was performed showing a distended gallbladder with hypoechoic material and gallbladder wall thickening with pericholecystic fluid and CBD dilatation to 10 mm.An MRCP was also done showing distended abnormal gallbladder suggestive of cholecystitis. She was ultimately taken to the operating room by Dr. Cordova on 10/04/2023 at which time she underwent a subtotal cholecystectomy due to the finding of a gangrenous gallbladder complicating a complete cholecystectomy. She is now postop day 2 status post laparoscopic subtotal cholecystectomy with PIETRO drain in place currently with nonbilious output. From a surgical perspective, she has progressed relatively well with resolution of leukocytosis. She has transitioned to p.o. pain medications, and is on a carb controlled diet. Medicine is consulted requesting assistance for blood sugar control. In the p ast 48 hours her blood pressures have consistently been above 220. This is despite her baseline hemoglobin A1c of 6.9. Her home regimen includes metformin 500 BID, and NPH insulin 12 units twice daily. 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 History - Past Medical History Cardiovascular: reports: High cholesterol, Murmur Respiratory: reports: Asthma, Sleep apnea, CPAP use Neuro: reports: None Endocrine/Autoimmune: reports: Type 2 diabetes GI: reports: Ulcers, Diverticulitis : reports: Retention, Frequency Musculoskeletal: reports: Gout Derm: reports: Other MRSA Hx?: No - Past Surgical History General: reports: Appendectomy (vertical paramedian incision (remote)) Ortho: reports: Knee replacement, Spine surgery /FEATURES REPORTER: reports: Hysterectomy, Other (both uterine and vaginal suspension procedures ) Cardiovascular: reports: Cardiac catheterization HEENT: reports: Cataracts, Tonsil/Adenoidectomy - Family & Social History Living arrangement: At home Living Situation: Other (with adult autistic son) Social History Notes: ambulates with cane, cooks for self - Substance History Dependence: Experiences withdrawal or developed tolerances: Opioid - POLST Patient has POLST: No POLST Status: Full Code Meds/Allgy - Home Medications Home Medications: Ambulatory Orders Medication Instructions Recorded Confirmed Insulin NPH Human Isophane 8 - 10 unit BID 02/14/15 10/05/23 [Humulin N] Metoprolol Tartrate 25 mg BID 02/14/15 10/04/23 Multivitamin [Multivitamins] 1 tab DAILY 02/14/15 10/04/23 Tumeric 500 mg PO DAILY 02/14/15 10/04/23 metFORMIN [Glucophage] 500 mg BID 02/14/15 10/04/23 oxyCODONE [Roxicodone] 10 mg PO BID 02/14/15 10/04/23 Cholecalciferol [Vitamin D3] 25 mcg PO DAILY 03/05/20 10/05/23 Melatonin/Pyridoxine [Melatonin 5 1 tab PO DAILY 03/05/20 10/04/23 mg Tablet] Naproxen Sodium [Aleve] 220 mg PO HS 03/05/20 10/04/23 Rosuvastatin Calcium [Crestor] 5 tab PO HS 03/05/20 10/04/23 Dicyclomine [Bentyl] 10 mg PO QID PRN #20 cap 10/02/23 10/04/23 Famotidine [Pepcid] 20 mg PO DAILY #20 tablet 10/02/23 10/04/23 Magnesium Oxide [Magnesium] 400 mg PO DAILY 10/04/23 10/05/23 Metoclopramide [Reglan] 10 mg PO DAILY 10/05/23 10/05/23 estradioL vaginal [Estrace vaginal] 1 g TOP OAW 10/05/23 10/05/23 - Allergies Allergies/Adverse Reactions: Allergies Allergy/AdvReac Type Severity Reaction Status Date / Time Cephalosporins Allergy Rash Verified 06/15/24 15:41 codeine Allergy Itching Verified 10/04/23 15:41 colchicine Allergy Rash Verified 10/04/23 15:41 hydromorphone Allergy Unknown Verified 10/04/23 15:41 insulin glargine Allergy Hives Verified 10/05/23 23:03 [From Lantus U-100 Insulin] monosodium glutamate Allergy Unknown Verified 10/06/23 14:51 Penicillins Allergy Anaphylaxis Verified 10/04/23 15:41 Sulfa (Sulfonamide Allergy Anaphylaxis Verified 10/04/23 15:41 Antibiotics) tuberculin,PPD,multi-puncture Allergy Unknown Verified 10/04/23 15:41 vancomycin Allergy Itching Verified 10/04/23 15:41 adhesive tape AdvReac Intermediate Irritation Verified 10/04/23 15:41 (Paper tape OK) allopurinol AdvReac Rash Verified 10/04/23 15:41 aspartame AdvReac Respiratory Verified 10/04/23 15:41 broccoli AdvReac Unknown Verified 10/04/23 15:41 gabapentin AdvReac Unknown Verified 10/04/23 15:41 calcium silicate Allergy Unknown Uncoded 10/04/23 15:41 Review of Systems - Constitutional Constitutional: reports: Fatigue - Gastrointestinal Gastrointestinal: reports: Nausea - Musculoskeletal Musculoskeletal: reports: Muscle pain - Neurological Neurological: reports: General weakness Exam - Vital Signs Reviewed Vital Signs: Yes Vital Signs: Vital Signs x48h Temp Pulse Resp BP Pulse Ox 10/06/23 13:00 36.8 C 73 14 112/49 L 95 10/06/23 09:15 36.5 C 77 12 108/45 L 92 - Physical Exam General Appearance: positive: No acute distress, Other (Obese) Eyes Bilateral: positive: Normal inspection Neck: positive: Nml inspection Respiratory: positive: Chest non-tender, No respiratory distress, Breath sounds nml Cardiovascular: positive: Regular rate & rhythm, Systolic murmur. negative: No gallop, Tachycardia Abdomen: positive: Nml bowel sounds, Guarding Extremities: positive: Nml appearance Neurologic/Psychiatric: positive: Oriented x3, CN's nml (2-12), Motor nml Conclusion/Plan - Problem List (1) Type 2 diabetes mellitus Conclusion/Plan: * Patient with type 2 diabetes mellitus with outpatient regimen including metformin 500 mg twice daily, NPH 12 units twice daily. * Intolerant to Lantus. * She has however been receiving twice daily dosing of Semglee/insulin glargine 5 units nightly. * A1c on admission was 6.9 * Blood sugars in the past 36 hours have been elevated, consistently over 200 * Most likely 2/2 infection, recent surgery, decreased activity * Will attempt to achieve BS in < 150 range to promote wound healing * Now on moderate dose ISS * Diabetic diet with 3 carbs * Will increase Semglee to 10 U QHS * Add Humalin 3 U TID, in addition to sliding scale coverage Qualifiers: Diabetes mellitus longterm insulin use: with longterm use Diabetes mellitus complication status: without complication Qualified Code(s): E11.9 - Type 2 diabetes mellitus without complications; Z79.4 - FDC (current) use of insulin (2) Chronic pain Conclusion/Plan: Pt on oxycodone at home due to chronic pelvic pain Gen surgery currently managing pain due to current post op pain (3) Acute cholecystitis Conclusion/Plan: Patient presented with recurrent episode of acute cholecystitis found to have gangrenous gallbladder Post op day #2 subtotal Laparoscopic cholecystectomy Management as per general surgery (4) E coli bacteremia Conclusion/Plan: Likely secondary to gangrenous cholecystitis Patient appears nontoxic Vital signs stable Leukocytosis resolved Currently on ceftriaxone empirically Continue empiric antibiotics pending culture and sensitivities, further antibiotic management will be deferred to general surgery (5) HLD (hyperlipidemia) Conclusion/Plan: Stable Resume statin (6) HTN (hypertension) Conclusion/Plan: BP somewhat soft Likely 2/2 to decreased PO intake Monitor, consider holding PO metoprolol - Lab Results Lab results reviewed: Yes Fish Bones: 10/06/23 05:17 10/06/23 05:17
[2023-10-06] MEDS: SODIUM CHLORIDE FLUSH 0.9% 10 ML SYRINGE IVP PRN (16:44)
[2023-10-06] MEDS ORDERED: INSULIN GLARGINE-YFGN 300 UNIT/3 ML PEN SUBQ SCH (21:00)
[2023-10-06] MEDS: NAPROXEN 250 MG TABLET PO PRN (23:32)
[2023-10-06] MEDS: BISACODYL 10 MG SUPP PR ONE (23:45)
--- NOTE | 2023-10-07 06:53 | PROVIDER PROGRESS NOTE ---
Subjective - General Admit Date: 10/06/23 Procedure Date: 10/04/23 Post Op Days: 3 Procedure Performed: laparoscopic subtotal (fenestrated) cholecystectomy - Review of Systems Wound/Incisions: positive: Healing well, Dressing dry and intact, Drainage (PIETRO bilious) Drain Type: PIETRO drain Drain Output Description: serosanguinous Approximate mls Output: 100 - Other Other Information/Narrative: Pain control improved with PO bowel regimen, though she is still requiring breakthough IV medication. +OOBTC, +void, +BM. Patient had fever last night, feeling much more comfortable this AM than last night. Tolerating diet, no n/v. Patient feels abdominal pain is improving. Objective - Patient Data Vital Signs: Vital Signs x48h Temp Pulse Resp BP Pulse Ox 10/07/23 05:39 36.9 C 10/07/23 04:26 37.6 C 74 16 134/60 H 96 10/07/23 01:20 37.2 C 10/07/23 00:14 99.9 C H 10/07/23 00:00 81 20 128/61 95 Intake & Output: Intake and Output Totals x24h 10/05/23 10/06/23 10/07/23 23:59 23:59 23:59 Intake Total 2918.583 2042 100 Output Total 182 550 30 Balance 2736.583 1492 70 - Lab Results Lab Results: 10/07/23 07:01 10/07/23 07:01 Other Lab Results: Lab Results x24hrs 10/06/23 10/06/23 10/06/23 Range/Units 21:09 16:21 11:34 POC Whole Bld Glucose 255 H 218 H 258 H (70 - 100) mg/dL Magnesium (1.7-2.3) mg/dL 10/06/23 10/06/23 Range/Units 07:30 05:17 POC Whole Bld Glucose 240 H (70 - 100) mg/dL Magnesium 1.6 L (1.7-2.3) mg/dL - Current Medications Current Medications: Current Medications Generic Name Dose Route Start Last Admin Trade Name Freq PRN Reason Stop Dose Admin Acetaminophen 650 mg 10/06/23 09:00 10/07/23 05:34 Acetaminophen 325 Mg Tablet PO 650 mg Q4HR TESSY Administration Atorvastatin Calcium 10 mg 10/05/23 21:00 10/06/23 20:54 Atorvastatin 10 Mg Tablet PO Not Given QPM [facility] Ceftriaxone Sodium 1 gm 10/05/23 09:00 10/06/23 08:29 Ceftriaxone 1 Gm Vial IVP 1 gm DAILY TESSY Administration Cholecalciferol 25 mcg 10/06/23 09:00 10/06/23 08:21 Cholecalciferol 25 Mcg Tablet PO 25 mcg DAILY TESSY Administration Dicyclomine HCl 10 mg 10/06/23 07:47 10/06/23 12:05 Dicyclomine 10 Mg Capsule PO 10 mg QID PRN Administration Abdominal Pain Docusate Sodium 200 mg 10/05/23 18:00 10/06/23 08:20 Docusate Sodium 100 Mg Capsule PO 200 mg DAILY [facility] Administration Famotidine 20 mg 10/06/23 09:00 10/06/23 08:21 Famotidine 20 Mg Tablet PO 20 mg DAILY [facility] Administration Heparin Sodium (Porcine) 5,000 unit 10/05/23 14:00 10/07/23 05:30 Heparin 5,000 Unit/Ml Vial SUBQ 5,000 unit TID [facility] Administration Hydromorphone HCl 0.5 mg 10/06/23 08:55 10/07/23 04:32 Hydromorphone 0.5 Mg/0.5 Ml Syringe IVP 0.5 mg Q2H PRN Administration Breakthrough Pain Metronidazole 500 mg in 100 mls @ 100 mls/hr 10/05/23 04:00 10/07/23 05:33 Flagyl 500 Mg/100 Ml IV Infused Q8H [facility] Infusion Insulin Human Lispro 2 - 10 unit 10/06/23 08:00 10/06/23 21:12 Insulin Lispro 300 Unit/3 Ml Pen SUBQ 6 unit 0800,1200,1700,2100 [facility] Administration Protocol Insulin Human Regular 3 unit 10/06/23 12:00 10/06/23 17:49 Insulin Regular, Human 300 Unit/3 Ml Pen SUBQ 3 unit TIDWM [facility] Administration Metoclopramide HCl 10 mg 10/06/23 14:40 10/07/23 00:05 Metoclopramide 10 Mg Tablet PO 10 mg Q6H PRN Administration Nausea / Vomiting Metoprolol Tartrate 25 mg 10/06/23 09:00 10/06/23 20:53 Metoprolol Tartrate 50 Mg Tablet PO 25 mg BID TESSY Administration Naproxen 250 mg 10/06/23 08:56 10/06/23 23:32 Naproxen 250 Mg Tablet PO 250 mg TID PRN Administration Moderate Pain (Level 4-6) Ondansetron HCl 4 mg 10/05/23 02:34 10/06/23 20:55 Ondansetron 4 Mg/2 Ml Vial IVP 4 mg Q6H PRN Administration Nausea / Vomiting Oxycodone HCl 5 mg 10/06/23 12:00 10/07/23 04:24 Oxycodone 5 Mg Tablet PO 5 mg Q4H TESSY Administration Oxycodone HCl 5 mg 10/06/23 08:54 10/07/23 04:24 Oxycodone 5 Mg Tablet PO 5 mg Q4HR PRN Administration Severe Pain (Level 7-10) Polyethylene Glycol 17 gm 10/05/23 11:04 10/06/23 20:56 Polyethylene Glycol 3350 17 Gm Packet PO Not Given BID TESSY Simethicone 80 mg 10/06/23 14:40 10/06/23 20:55 Simethicone Chew 80 Mg Tablet PO 80 mg 0900,1300,1800,2100 PRN Administration Abdominal Pain Sodium Chloride 10 ml 10/05/23 09:00 10/07/23 01:21 Sodium Chloride Flush 0.9% 10 Ml Syringe IVP 10 ml 0100,0900,1700 TESSY Administration Sodium Chloride 10 ml 10/05/23 02:09 10/07/23 04:33 Sodium Chloride Flush 0.9% 10 Ml Syringe IVP 10 ml PRN PRN Administration NEEDED PER PROVIDER ORDERS - Physical Exam Comments/Other: Gen: NAD, alert and oriented CV: RRR Pulm: non labored on RA, using IS Abd: soft with incisional ttp, otherwise non tender. PIETRO output bile. Ext: no c/c/e Impression/Plan - Problem List Problem List: 78 y/o F with: 1. acute on chronic gangrenous cholecystitis and e coli bacterremia - POD#3 s/p laparoscopic subtotal cholecystectomy (fenestrated) (10/04/23) - PIETRO drain in place, output appears bilious since yesterday PM. Plan to monitor output. If increasing, patient may need ERCP with stent given subtotal cholecystectomy. - leukocytosis resolved, LFT's wnl - continue PO, mulitmodal pain approach with prn IV meds for breakthrough pain - await blood cx results to taper and hopefully transition to po abx. E coli in 2/2 blood cx drawn at time of admission, sensitivities pending. Repeat cx drawn last night. Currently on rocephin and flagyl. Pain controL: - scheduled PO tylenol, scheduled oxycodone (5mg q4h), additional 5mg po q4h oxycodone prn, naproxen prn (patient takes this daily at home despite report of allergy to NSAIDs), dialudid for breakthrough pain - allergy to gabapentin 2. DM - continue carb control diet - sugars poorly controlled in hospital - appreciate medicine recommendations 3. constipation, improving - + BM last night - bowel regimen with colace, miralax, will add suppository when pt able to get out of bed with PT 4. hypokalemia, hypomagnesemia, resolved - cont to monitor 5. hpl, NELLY, h/o PUD, gout, lymphoma, chronic pain - restarted home meds - CPAP ordered DVT ppx - SCDs, hep TID PT/OT eval ordered to increase activity. Patient inpatient with need for continued inpatient IV abx until cx back, then hopefully narrow to PO abx. Patient also struggling with pain control.
[2023-10-07 07:22] LABS: BASOPHILS % (AUTO) 0.3 %; EOSINOPHILS # (AUTO) 0.2 10^3/uL (0.0-0.7); EOSINOPHILS % (AUTO) 2.4 %; HCT - HEMATOCRIT 27.8 % (37.0-47.0); HGB - HEMOGLOBIN 8.6 g/dL (12.0-16.0); LYMPHOCYTES # (AUTO) 1.1 10^3/uL (1.5-3.5); LYMPHOCYTES % (AUTO) 17.7 %; MEAN CORPUSCULAR HEMOGLOBIN 26.6 pg (27.0-31.0); MEAN CORPUSCULAR HGB CONC 30.9 g/dL (32.0-36.0); MEAN CORPUSCULAR VOLUME 86.1 fL (81.0-99.0); MEAN PLATELET VOLUME 10.7 fL (7.9-10.8); MONOCYTES # (AUTO) 0.4 10^3/uL (0.0-1.0); MONOCYTES % (AUTO) 6.8 %; NEUTROPHILS # (AUTO) 4.6 10^3/uL (1.5-6.6); NEUTROPHILS % (AUTO) 72.5 %; PLT - PLATELET COUNT 182 10^3/uL (130-450); RED BLOOD COUNT 3.23 10^6/uL (4.20-5.40); RED CELL DISTRIBUTION WIDTH 14.8 % (12.0-15.0); WHITE BLOOD COUNT 6.3 x10^3/uL (4.8-10.8)
[2023-10-07 07:27] LABS: ALBUMIN 2.7 g/dL (3.2-5.5); ALBUMIN/GLOBULIN RATIO 0.9 (1.0-2.2); BILIRUBIN,TOTAL 0.4 mg/dL (0.2-1.0); CALCIUM 8.6 mg/dL (8.5-10.3); CREATININE 0.6 mg/dL (0.6-1.3); POTASSIUM 3.5 mmol/L (3.5-4.5); TOTAL PROTEIN 5.7 g/dL (6.4-8.9)
[2023-10-07] MEDS: MAGNESIUM OXIDE 400 MG TABLET PO SCH (08:03)
[2023-10-07] MEDS: cefTRIAXone 1 GM in SODIUM CHLORIDE 0.9% MINIBAG 100 ML IV ONE (14:33)
--- NOTE | 2023-10-07 15:12 | XRAY Report ---
PROCEDURE: Chest 2V INDICATIONS: s/p surgery, r/o pna TECHNIQUE: 2 views of the chest were acquired. COMPARISON: Chest x-ray 11/03/2023 FINDINGS: Surgical changes and devices: None. Lungs and pleura: No pleural effusions or pneumothorax. Lungs are clear. Mediastinum: Mediastinal contours appear normal. Heart size is mildly enlarged. Bones and chest wall: No suspicious bony lesions. Overlying soft tissues appear unremarkable. IMPRESSION: No acute cardiopulmonary process. Reviewed by: Elza Lyman MD on 10/07/2023 3:11 PM PDT Approved by: Elza Lyman MD on 10/07/2023 3:11 PM PDT Station ID: [id number]
[2023-10-07] MEDS: INSULIN LISPRO 300 UNIT/3 ML PEN SUBQ SCH (17:14)
[2023-10-07 17:57] LABS: BILIRUBIN,URINE NEGATIVE (NEGATIVE); GLUCOSE, URINE (UA) NEGATIVE (NEGATIVE); KETONES,URINE (UA) NEGATIVE (NEGATIVE); LEUKOCYTE ESTERASE, URINE NEGATIVE (NEGATIVE); NITRITE,URINE NEGATIVE (NEGATIVE); OCCULT BLOOD,URINE NEGATIVE (NEGATIVE); PROTEIN,URINE NEGATIVE (NEGATIVE); UROBILINOGEN,URINE 0.2 (NORMAL) E.U./dL (NORMAL)
[2023-10-07 18:00] LABS: CLARITY,URINE CLEAR (CLEAR)
[2023-10-07 18:08] LABS: RBC,URINE None Seen /HPF (0-5); SQUAMOUS EPITHELIAL CELL,UR FEW Squamous (<= Few); WBC,URINE 0-3 /HPF (0-5)
[2023-10-07 18:09] LABS: BACTERIA,URINE None Seen /HPF (None Seen)
--- NOTE | 2023-10-07 18:38 | PROVIDER PROGRESS NOTE ---
Assessment/Plan - Problem List (1) Type 2 diabetes mellitus Qualifiers: Diabetes mellitus jail insulin use: with terminal carman use Diabetes mellitus complication status: without complication Qualified Code(s): E11.9 - Type 2 diabetes mellitus without complications; Z79.4 - terminal carman (current) use of insulin Assessment/Plan: Conclusion/Plan: Continue regular insulin with meals. Increase to 5 units three times a day with meals. Elevation of blood sugar most likely related to infection. Recommend serum glucose range of 80-180. Continue diabetic diet. A1C on admission 6.9. Qualifiers: Diabetes mellitus jail insulin use: with jail use Diabetes mellitus complication status: without complication Qualified Code(s): E11.9 - Type 2 diabetes mellitus without complications; Z79.4 - terminal carman (current) use of insulin (2) Chronic pain Conclusion/Plan: Pt on oxycodone at home due to chronic pelvic pain Continue oxycodone. (3) Acute cholecystitis Conclusion/Plan: Patient presented with recurrent episode of acute cholecystitis found to have gangrenous gallbladder Post op day #2 subtotal Laparoscopic cholecystectomy Management as per general surgery (4) E coli bacteremia Conclusion/Plan: Likely secondary to gangrenous cholecystitis Patient appears nontoxic Vital signs stable Continue ceftriaxone 2 grams IV daily and metronidazole 500 mg IV q8H. (5) HLD (hyperlipidemia) Conclusion/Plan: Stable Resume statin (6) HTN (hypertension) Conclusion/Plan: Continue metoprolol 25 mg twice daily. - Current Meds Current Meds: Current Medications Generic Name Dose Route Start Last Admin Trade Name Freq PRN Reason Stop Dose Admin Acetaminophen 650 mg 10/06/23 09:00 10/07/23 17:35 Acetaminophen 325 Mg Tablet PO 650 mg Q4HR TESSY Administration Atorvastatin Calcium 10 mg 10/05/23 21:00 10/06/23 20:54 Atorvastatin 10 Mg Tablet PO Not Given QPM TESSY Ceftriaxone Sodium 1 gm 10/05/23 09:00 10/07/23 09:23 Ceftriaxone 1 Gm Vial IVP 1 gm DAILY TESSY Administration Cholecalciferol 25 mcg 10/06/23 09:00 10/07/23 09:23 Cholecalciferol 25 Mcg Tablet PO 25 mcg DAILY TESSY Administration Dicyclomine HCl 10 mg 10/06/23 07:47 10/06/23 12:05 Dicyclomine 10 Mg Capsule PO 10 mg QID PRN Administration Abdominal Pain Docusate Sodium 200 mg 10/05/23 18:00 10/07/23 09:22 Docusate Sodium 100 Mg Capsule PO 200 mg DAILY [facility] Administration Famotidine 20 mg 10/06/23 09:00 10/07/23 09:23 Famotidine 20 Mg Tablet PO 20 mg DAILY TESSY Administration Heparin Sodium (Porcine) 5,000 unit 10/05/23 14:00 10/07/23 14:20 Heparin 5,000 Unit/Ml Vial SUBQ 5,000 unit TID [facility] Administration Hydromorphone HCl 0.5 mg 10/06/23 08:55 10/07/23 14:29 Hydromorphone 0.5 Mg/0.5 Ml Syringe IVP 0.5 mg Q2H PRN Administration Breakthrough Pain Metronidazole 500 mg in 100 mls @ 100 mls/hr 10/05/23 04:00 10/07/23 15:13 Flagyl 500 Mg/100 Ml IV Infused Q8H [facility] Infusion Insulin Human Lispro 3 - 11 unit 10/07/23 17:00 10/07/23 17:14 Insulin Lispro 300 Unit/3 Ml Pen SUBQ 3 unit 0800,1200,1700,2100 [facility] Administration Protocol Magnesium Oxide 800 mg 10/07/23 08:00 10/07/23 08:03 Magnesium Oxide 400 Mg Tablet PO 800 mg DAILYWM [facility] Administration Metoclopramide HCl 10 mg 10/06/23 14:40 10/07/23 14:02 Metoclopramide 10 Mg Tablet PO 10 mg Q6H PRN Administration Nausea / Vomiting Metoprolol Tartrate 25 mg 10/06/23 09:00 10/07/23 09:21 Metoprolol Tartrate 50 Mg Tablet PO 25 mg BID [facility] Administration Naproxen 250 mg 10/06/23 08:56 10/06/23 23:32 Naproxen 250 Mg Tablet PO 250 mg TID PRN Administration Moderate Pain (Level 4-6) Ondansetron HCl 4 mg 10/05/23 02:34 10/07/23 15:00 Ondansetron 4 Mg/2 Ml Vial IVP 4 mg Q6H PRN Administration Nausea / Vomiting Oxycodone HCl 5 mg 10/06/23 12:00 10/07/23 17:36 Oxycodone 5 Mg Tablet PO 5 mg Q4H TESSY Administration Oxycodone HCl 5 mg 10/06/23 08:54 10/07/23 17:36 Oxycodone 5 Mg Tablet PO 5 mg Q4HR PRN Administration Severe Pain (Level 7-10) Polyethylene Glycol 17 gm 10/05/23 11:04 10/07/23 09:22 Polyethylene Glycol 3350 17 Gm Packet PO 17 gm BID TESSY Administration Simethicone 80 mg 10/06/23 14:40 10/07/23 09:22 Simethicone Chew 80 Mg Tablet PO 80 mg 0900,1300,1800,2100 PRN Administration Abdominal Pain Sodium Chloride 10 ml 10/05/23 09:00 10/07/23 17:37 Sodium Chloride Flush 0.9% 10 Ml Syringe IVP 10 ml 0100,0900,1700 TESSY Administration Sodium Chloride 10 ml 10/05/23 02:09 10/07/23 04:33 Sodium Chloride Flush 0.9% 10 Ml Syringe IVP 10 ml PRN PRN Administration NEEDED PER PROVIDER ORDERS - Lab Result Fish Bone Diagrams: 10/07/23 07:01 10/07/23 07:01 - Additional Planning My Orders: My Active Orders 10/08/23 08:00 Insulin Regular, Human [NovoLIN R FlexPen] 5 unit SUBQ TIDWM 10/08/23 09:00 cefTRIAXone [Rocephin] 2 gm Sodium Chloride 0.9% Minibag [Normal Saline 0.9% Minibag] 100 ml IV DAILY Subjective - Subjective Patient Reports: Other (Alert. Denies chest pain and dyspnea. Continues to complain of abdominal pain and tenderness in right upper quadrant.) Objective Vital Signs: Vital Signs - 24 hr 10/06/23 10/06/23 10/06/23 20:49 20:53 22:00 Temperature 39.3 C H 38.2 C H Heart Rate [ 90 92 Brachial] Respiratory 22 18 Rate Blood Pressure 137/61 H Blood Pressure 137/61 H 114/71 [Left Brachial artery] O2 Saturation 95 96 10/07/23 10/07/23 10/07/23 00:00 00:14 01:20 Temperature 99.9 C H 37.2 C Heart Rate [ 81 Brachial] Respiratory 20 Rate Blood Pressure Blood Pressure 128/61 [Left Brachial artery] O2 Saturation 95 10/07/23 10/07/23 10/07/23 04:26 05:39 07:42 Temperature 37.6 C 36.9 C 36.8 C Heart Rate [ 74 73 Brachial] Respiratory 16 18 Rate Blood Pressure Blood Pressure 134/60 H 129/56 L [Left Brachial artery] O2 Saturation 96 95 10/07/23 10/07/23 10/07/23 09:21 13:00 16:20 Temperature 37.7 C 36.4 C L Heart Rate [ 69 95 Brachial] Respiratory 20 20 Rate Blood Pressure 129/56 L Blood Pressure 96/59 L 163/81 H [Left Brachial artery] O2 Saturation 97 94 Oxygen O2 Source Room air I&O (Last 24 Hrs): Intake and Output Totals x24h 10/05/23 10/06/23 10/07/23 23:59 23:59 23:59 Intake Total 2918.583 2042 1157 Output Total 182 550 60 Balance 2736.583 1492 1097 General: Alert, Oriented x3 HEENT: Atraumatic Neck: Supple, No JVD Lymphatic: no adenopathy Neuro: Alert, Non Focal Cardiovascular: Regular rate, Normal S1, Normal S2 Respiratory: Other (Good exchange in all lung jay no wheezing no crackles.) Abdomen: Other (Soft, nondistended positive bowel sounds. Positive tenderness on palpation in right upper quadrant.) Extremities: No cyanosis, No edema Skin: No rashes - Results Results: Laboratory Results WBC 6.3 x10^3/uL (4.8-10.8) 10/07/23 07:01 RBC 3.23 10^6/uL (4.20-5.40) L 10/07/23 07:01 Hgb 8.6 g/dL (12.0-16.0) L 10/07/23 07:01 Hct 27.8 % (37.0-47.0) L 10/07/23 07:01 MCV 86.1 fL (81.0-99.0) 10/07/23 07:01 MCH 26.6 pg (27.0-31.0) L 10/07/23 07:01 MCHC 30.9 g/dL (32.0-36.0) L 10/07/23 07:01 RDW 14.8 % (12.0-15.0) 10/07/23 07:01 Plt Count 182 10^3/uL (130-450) 10/07/23 07:01 MPV 10.7 fL (7.9-10.8) 10/07/23 07:01 Neut # (Auto) 4.6 10^3/uL (1.5-6.6) 10/07/23 07:01 Lymph # (Auto) 1.1 10^3/uL (1.5-3.5) L 10/07/23 07:01 [place] # (Auto) 0.4 10^3/uL (0.0-1.0) 10/07/23 07:01 Eos # (Auto) 0.2 10^3/uL (0.0-0.7) 10/07/23 07:01 Baso # (Auto) 0.0 10^3/uL (0.0-0.1) 10/07/23 07:01 Absolute Nucleated RBC 0.00 x10^3/uL 10/07/23 07:01 Nucleated RBC % 0.0 /100WBC 10/07/23 07:01 Sodium 137 mmol/L (135-145) 10/07/23 07:01 Potassium 3.5 mmol/L (3.5-4.5) 10/07/23 07:01 Chloride 104 mmol/L (101-111) 10/07/23 07:01 Carbon Dioxide 28 mmol/L (21-32) 10/07/23 07:01 Anion Gap 5.0 (6-13) L 10/07/23 07:01 BUN 8 mg/dL (6-20) 10/07/23 07:01 Creatinine 0.6 mg/dL (0.6-1.3) 10/07/23 07:01 Estimated GFR (MDRD) 97 (>89) 10/07/23 07:01 Glucose 221 mg/dL (74-104) H 10/07/23 07:01 POC Whole Bld Glucose 177 mg/dL (70 - 100) H 10/07/23 16:21 Estimat Average Glucose 151 mg/dL (70-100) H 10/05/23 06:13 Hemoglobin A1c % 6.9 % (4.27-6.07) H 10/05/23 06:13 Lactic Acid 1.4 mmol/L (0.5-2.2) 10/04/23 16:20 Calcium 8.6 mg/dL (8.5-10.3) 10/07/23 07:01 Magnesium 1.6 mg/dL (1.7-2.3) L 10/06/23 05:17 Total Bilirubin 0.4 mg/dL (0.2-1.0) 10/07/23 07:01 AST 19 IU/L (10-42) 10/07/23 07:01 ALT 14 IU/L (10-60) 10/07/23 07:01 Alkaline Phosphatase 67 IU/L (42-121) 10/07/23 07:01 Total Protein 5.7 g/dL (6.4-8.9) L 10/07/23 07:01 Albumin 2.7 g/dL (3.2-5.5) L 10/07/23 07:01 Globulin 3.0 g/dL (2.1-4.2) 10/07/23 07:01 Albumin/Globulin Ratio 0.9 (1.0-2.2) L 10/07/23 07:01 Lipase < 10 U/L (11-82) L 10/04/23 16:05 Urine Color YELLOW 10/07/23 17:30 Urine Clarity CLEAR (CLEAR) 10/07/23 17:30 Urine pH 7.0 PH (5.0-7.5) 10/07/23 17:30 Ur Specific [place] 1.010 (1.002-1.030) 10/07/23 17:30 Urine Protein NEGATIVE mg/dL (NEGATIVE) 10/07/23 17:30 Urine Glucose (UA) NEGATIVE mg/dL (NEGATIVE) 10/07/23 17:30 Urine Ketones NEGATIVE mg/dL (NEGATIVE) 10/07/23 17:30 Urine Occult Blood NEGATIVE (NEGATIVE) 10/07/23 17:30 Urine Nitrite NEGATIVE (NEGATIVE) 10/07/23 17:30 Urine Bilirubin NEGATIVE (NEGATIVE) 10/07/23 17:30 Urine Urobilinogen 0.2 (NORMAL) E.U./dL (NORMAL) 10/07/23 17:30 Ur Leukocyte Esterase NEGATIVE (NEGATIVE) 10/07/23 17:30 Urine RBC None Seen /HPF (0-5) 10/07/23 17:30 Urine WBC 0-3 /HPF (0-5) 10/07/23 17:30 Ur Squamous Epith Cells FEW Squamous (<= Few) 10/07/23 17:30 Urine Bacteria None Seen /HPF (None Seen) 10/07/23 17:30 Ur Microscopic Review INDICATED 10/04/23 16:35 Urine Culture Comments NOT INDICATED 10/07/23 17:30 Nasal Adenovirus (PCR) NOT DETECTED 10/04/23 16:00 Nasal B. parapertussis DNA (PCR) NOT DETECTED 10/04/23 16:00 Nasal Coronavir 229E PCR NOT DETECTED 10/04/23 16:00 Nasal Coronavir HKU1 PCR NOT DETECTED 10/04/23 16:00 Nasal Coronavir NL63 PCR NOT DETECTED 10/04/23 16:00 Nasal Coronavir OC43 PCR NOT DETECTED 10/04/23 16:00 Nasal Enterovir/Rhinovir PCR NOT DETECTED 10/04/23 16:00 Nasal Influenza B PCR NOT DETECTED 10/04/23 16:00 Nasal Influenza A PCR NOT DETECTED 10/04/23 16:00 Nasal Parainfluen 1 PCR NOT DETECTED 10/04/23 16:00 Nasal Parainfluen 2 PCR NOT DETECTED 10/04/23 16:00 Nasal Parainfluen 3 PCR NOT DETECTED 10/04/23 16:00 Nasal Parainfluen 4 PCR NOT DETECTED 10/04/23 16:00 Nasal RSV (PCR) NOT DETECTED 10/04/23 16:00 Nasal B.pertussis DNA PCR NOT DETECTED 10/04/23 16:00 Nasal C.pneumoniae (PCR) NOT DETECTED 10/04/23 16:00 Fox Human Metapneumo PCR NOT DETECTED 10/04/23 16:00 Nasal M.pneumoniae (PCR) NOT DETECTED 10/04/23 16:00 Nasal SARS-CoV-2 (PCR) NOT DETECTED 10/04/23 16:00 Sepsis Event Note (H) - Evaluation Current Stage of Sepsis: Sepsis Possible source of Sepsis: positive: GI tract/intra-abdominal - Sepsis Criteria Sepsis Criteria: Recorded Temperature greater than 38.3C or Less than 36C, Recorded Heart Rate greater than 90 bpm, WBC count greater than 12,000 or less than 4000
[2023-10-08] MEDS: INSULIN REGULAR, HUMAN 300 UNIT/3 ML PEN SUBQ SCH (08:04)
--- NOTE | 2023-10-08 08:39 | PROVIDER PROGRESS NOTE ---
Subjective - General Admit Date: 10/06/23 Procedure Date: 10/04/23 Post Op Days: 4 Procedure Performed: laparoscopic subtotal (fenestrated) cholecystectomy - Review of Systems Wound/Incisions: positive: Healing well, Dressing dry and intact, Drainage (PIETRO bilious) Drain Type: PIETRO drain Drain Output Description: bilious Approximate mls Output: 80 - Other Other Information/Narrative: Pain controlled with PO meds most of the time, she did require one dose of IV meds last night. Still having more pain and nausea after meals, but trying to eat low fat diet today to see if that helps. No more f/c. Increasing activity. Using IS. +BM Objective - Patient Data Vital Signs: Vital Signs x48h Temp Pulse Resp BP Pulse Ox 10/08/23 07:50 37.7 C 76 18 138/65 H 97 10/08/23 04:24 36.7 C 75 24 144/60 H 96 Intake & Output: Intake and Output Totals x24h 10/06/23 10/07/23 10/08/23 23:59 23:59 23:59 Intake Total 2042 2594 960 Output Total 550 80 20 Balance 1492 2514 940 - Lab Results Lab Results: 10/07/23 07:01 10/07/23 07:01 Other Lab Results: Lab Results x24hrs 10/08/23 10/07/23 10/07/23 Range/Units 07:37 20:36 17:30 POC Whole Bld Glucose 219 H 211 H (70 - 100) mg/dL Urine Color YELLOW Urine Clarity CLEAR (CLEAR) Urine pH 7.0 (5.0-7.5) PH Ur Specific [place] 1.010 (1.002-1.030) Urine Protein NEGATIVE (NEGATIVE) mg/dL Urine Glucose (UA) NEGATIVE (NEGATIVE) mg/dL Urine Ketones NEGATIVE (NEGATIVE) mg/dL Urine Occult Blood NEGATIVE (NEGATIVE) Urine Nitrite NEGATIVE (NEGATIVE) Urine Bilirubin NEGATIVE (NEGATIVE) Urine Urobilinogen 0.2 (NORMAL) (NORMAL) E.U./dL Ur Leukocyte Esterase NEGATIVE (NEGATIVE) Urine RBC None Seen (0-5) /HPF Urine WBC 0-3 (0-5) /HPF Ur Squamous Epith Cells FEW Squamous (<= Few) Urine Bacteria None Seen (None Seen) /HPF Urine Culture Comments NOT INDICATED 06/10/07/23 10/07/23 Range/Units 16:21 11:20 07:31 POC Whole Bld Glucose 177 H 210 H 201 H (70 - 100) mg/dL Urine Color Urine Clarity (CLEAR) Urine pH (5.0-7.5) PH Ur Specific [place] (1.002-1.030) Urine Protein (NEGATIVE) mg/dL Urine Glucose (UA) (NEGATIVE) mg/dL Urine Ketones (NEGATIVE) mg/dL Urine Occult Blood (NEGATIVE) Urine Nitrite (NEGATIVE) Urine Bilirubin (NEGATIVE) Urine Urobilinogen (NORMAL) E.U./dL Ur Leukocyte Esterase (NEGATIVE) Urine RBC (0-5) /HPF Urine WBC (0-5) /HPF Ur Squamous Epith Cells (<= Few) Urine Bacteria (None Seen) /HPF Urine Culture Comments - Current Medications Current Medications: Current Medications Generic Name Dose Route Start Last Admin Trade Name Freq PRN Reason Stop Dose Admin Acetaminophen 650 mg 10/06/23 09:00 10/08/23 05:15 Acetaminophen 325 Mg Tablet PO 650 mg Q4HR TESSY Administration Atorvastatin Calcium 10 mg 10/05/23 21:00 10/07/23 21:05 Atorvastatin 10 Mg Tablet PO Not Given QPM TESSY Cholecalciferol 25 mcg 10/06/23 09:00 10/07/23 09:23 Cholecalciferol 25 Mcg Tablet PO 25 mcg DAILY TESSY Administration Dicyclomine HCl 10 mg 10/06/23 07:47 10/06/23 12:05 Dicyclomine 10 Mg Capsule PO 10 mg QID PRN Administration Abdominal Pain Docusate Sodium 200 mg 10/05/23 18:00 10/07/23 09:22 Docusate Sodium 100 Mg Capsule PO 200 mg DAILY TESSY Administration Famotidine 20 mg 10/06/23 09:00 10/07/23 09:23 Famotidine 20 Mg Tablet PO 20 mg DAILY TESSY Administration Heparin Sodium (Porcine) 5,000 unit 10/05/23 14:00 10/08/23 05:54 Heparin 5,000 Unit/Ml Vial SUBQ 5,000 unit TID TESSY Administration Hydromorphone HCl 0.5 mg 10/06/23 08:55 10/08/23 04:30 Hydromorphone 0.5 Mg/0.5 Ml Syringe IVP 0.5 mg Q2H PRN Administration Breakthrough Pain Metronidazole 500 mg in 100 mls @ 100 mls/hr 10/05/23 04:00 10/08/23 05:56 Flagyl 500 Mg/100 Ml IV Infused Q8H [facility] Infusion Insulin Human Lispro 3 - 11 unit 10/07/23 17:00 10/08/23 08:03 Insulin Lispro 300 Unit/3 Ml Pen SUBQ 5 unit 0800,1200,1700,2100 [facility] Administration Protocol Insulin Human Regular 5 unit 10/08/23 08:00 10/08/23 08:04 Insulin Regular, Human 300 Unit/3 Ml Pen SUBQ 5 unit TIDWM [facility] Administration Magnesium Oxide 800 mg 10/07/23 08:00 10/08/23 08:05 Magnesium Oxide 400 Mg Tablet PO 800 mg DAILYWM [facility] Administration Metoclopramide HCl 10 mg 10/06/23 14:40 10/07/23 14:02 Metoclopramide 10 Mg Tablet PO 10 mg Q6H PRN Administration Nausea / Vomiting Metoprolol Tartrate 25 mg 10/06/23 09:00 10/07/23 20:58 Metoprolol Tartrate 50 Mg Tablet PO 25 mg BID TESSY Administration Naproxen 250 mg 10/06/23 08:56 10/06/23 23:32 Naproxen 250 Mg Tablet PO 250 mg TID PRN Administration Moderate Pain (Level 4-6) Ondansetron HCl 4 mg 10/05/23 02:34 10/08/23 08:12 Ondansetron 4 Mg/2 Ml Vial IVP 4 mg Q6H PRN Administration Nausea / Vomiting Oxycodone HCl 5 mg 10/06/23 12:00 10/08/23 08:05 Oxycodone 5 Mg Tablet PO 5 mg Q4H TESSY Administration Oxycodone HCl 5 mg 10/06/23 08:54 10/08/23 05:46 Oxycodone 5 Mg Tablet PO 5 mg Q4HR PRN Administration Severe Pain (Level 7-10) Polyethylene Glycol 17 gm 10/05/23 11:04 10/07/23 21:06 Polyethylene Glycol 3350 17 Gm Packet PO Not Given BID TESSY Simethicone 80 mg 10/06/23 14:40 10/07/23 09:22 Simethicone Chew 80 Mg Tablet PO 80 mg 0900,1300,1800,2100 PRN Administration Abdominal Pain Sodium Chloride 10 ml 10/05/23 09:00 10/08/23 04:31 Sodium Chloride Flush 0.9% 10 Ml Syringe IVP 10 ml 0100,0900,1700 TESSY Administration Sodium Chloride 10 ml 10/05/23 02:09 10/07/23 04:33 Sodium Chloride Flush 0.9% 10 Ml Syringe IVP 10 ml PRN PRN Administration NEEDED PER PROVIDER ORDERS - Physical Exam Comments/Other: Gen: NAD, alert and oriented CV: RRR Pulm: non labored, on RA Abd: soft, obese, incisional ttp, no r/g. 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 Ext: no c/c/e Impression/Plan - Problem List Problem List: 78 y/o F with: 1. acute on chronic gangrenous cholecystitis and e coli bacterremia - POD#4 s/p laparoscopic subtotal cholecystectomy (fenestrated) (10/04/23) - PIETRO drain in place, output appears bilious since yesterday PM. Plan to monitor output. If remains high, patient may need ERCP with stent given subtotal cholecystectomy. - leukocytosis resolved, LFT's wnl - continue PO, mulitmodal pain approach with prn IV meds for breakthrough pain - await blood cx grew e coli which is crowder sensitive. Repeat cx wtih ngtd at 24 hours. Transition to PO abx- augmentin this PM. Patient states she had hives with pcn as a child. Denies h/o anaphylaxis. Pain controL: - scheduled PO tylenol, scheduled oxycodone (5mg q4h), additional 5mg po q4h oxycodone prn, naproxen prn (patient takes this daily at home despite report of allergy to NSAIDs). Will d/c prn dilaudid today in anticipation of discharge tomorrow. - allergy to gabapentin 2. DM - continue carb control diet - sugars poorly controlled in hospital - appreciate medicine recommendations 3. constipation, improving - + BM - cont bowel regimen 4. hypokalemia, hypomagnesemia, resolved - cont to monitor 5. hpl, NELLY, h/o PUD, gout, lymphoma, chronic pain - restarted home meds - CPAP ordered DVT ppx - SCDs, hep TID PT/OT rec home with family assist Patient inpatient with need for continued nausea, pain control. Trialing PO abx tonight. If pain and nausea controlled tomorrow, plan for d/c tomorrow.
[2023-10-08] MEDS: cefTRIAXone 2 GM in SODIUM CHLORIDE 0.9% MINIBAG 100 ML IV SCH (08:51)
--- NOTE | 2023-10-08 11:40 | PROVIDER PROGRESS NOTE ---
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 Continue regular insulin 5 units three times a day with meals. Elevation of blood sugar most likely related to infection. Goal is serum glucose range of 80-180. Continue diabetic diet. A1C on admission 6.9. 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 (3) Acute cholecystitis Conclusion/Plan: Patient presented with recurrent episode of acute cholecystitis found to have gangrenous gallbladder Post op day #2 subtotal Laparoscopic cholecystectomy Management as per general surgery (4) E coli bacteremia Conclusion/Plan: Likely secondary to gangrenous cholecystitis Patient appears nontoxic Vital signs stable Continue ceftriaxone 2 grams IV daily and metronidazole 500 mg IV q8H. (5) HLD (hyperlipidemia) Conclusion/Plan: Stable Resume statin (6) HTN (hypertension) Conclusion/Plan: Continue metoprolol 25 mg twice daily. - Current Meds Current Meds: Current Medications Generic Name Dose Route Start Last Admin Trade Name Freq PRN Reason Stop Dose Admin Acetaminophen 650 mg 10/06/23 09:00 10/08/23 08:50 Acetaminophen 325 Mg Tablet PO 650 mg Q4HR TESSY Administration Atorvastatin Calcium 10 mg 10/05/23 21:00 10/07/23 21:05 Atorvastatin 10 Mg Tablet PO Not Given QPM TESSY Cholecalciferol 25 mcg 10/06/23 09:00 10/08/23 08:50 Cholecalciferol 25 Mcg Tablet PO 25 mcg DAILY TESSY Administration Dicyclomine HCl 10 mg 10/06/23 07:47 10/06/23 12:05 Dicyclomine 10 Mg Capsule PO 10 mg QID PRN Administration Abdominal Pain Docusate Sodium 200 mg 10/05/23 18:00 10/08/23 08:51 Docusate Sodium 100 Mg Capsule PO Not Given DAILY [facility] Famotidine 20 mg 10/06/23 09:00 10/08/23 08:50 Famotidine 20 Mg Tablet PO 20 mg DAILY [facility] Administration Heparin Sodium (Porcine) 5,000 unit 10/05/23 14:00 10/08/23 05:54 Heparin 5,000 Unit/Ml Vial SUBQ 5,000 unit TID [facility] Administration Hydromorphone HCl 0.5 mg 10/06/23 08:55 10/08/23 04:30 Hydromorphone 0.5 Mg/0.5 Ml Syringe IVP 0.5 mg Q2H PRN Administration Breakthrough Pain Metronidazole 500 mg in 100 mls @ 100 mls/hr 10/05/23 04:00 10/08/23 05:56 Flagyl 500 Mg/100 Ml IV Infused Q8H [facility] Infusion Ceftriaxone Sodium 2 gm/ 100 mls @ 200 mls/hr 10/08/23 09:00 10/08/23 10:00 Sodium Chloride IV Infused DAILY [facility] Infusion Insulin Human Lispro 3 - 11 unit 10/07/23 17:00 10/08/23 08:03 Insulin Lispro 300 Unit/3 Ml Pen SUBQ 5 unit 0800,1200,1700,2100 [facility] Administration Protocol Insulin Human Regular 5 unit 10/08/23 08:00 10/08/23 08:04 Insulin Regular, Human 300 Unit/3 Ml Pen SUBQ 5 unit TIDWM [facility] Administration Magnesium Oxide 800 mg 10/07/23 08:00 10/08/23 08:05 Magnesium Oxide 400 Mg Tablet PO 800 mg DAILYWM [facility] Administration Metoclopramide HCl 10 mg 10/06/23 14:40 10/08/23 10:11 Metoclopramide 10 Mg Tablet PO 10 mg Q6H PRN Administration Nausea / Vomiting Metoprolol Tartrate 25 mg 10/06/23 09:00 10/08/23 08:52 Metoprolol Tartrate 50 Mg Tablet PO 25 mg BID [facility] Administration Naproxen 250 mg 10/06/23 08:56 10/06/23 23:32 Naproxen 250 Mg Tablet PO 250 mg TID PRN Administration Moderate Pain (Level 4-6) Ondansetron HCl 4 mg 10/05/23 02:34 10/08/23 08:12 Ondansetron 4 Mg/2 Ml Vial IVP 4 mg Q6H PRN Administration Nausea / Vomiting Oxycodone HCl 5 mg 10/06/23 12:00 10/08/23 08:05 Oxycodone 5 Mg Tablet PO 5 mg Q4H TESSY Administration Oxycodone HCl 5 mg 10/06/23 08:54 10/08/23 05:46 Oxycodone 5 Mg Tablet PO 5 mg Q4HR PRN Administration Severe Pain (Level 7-10) Polyethylene Glycol 17 gm 10/05/23 11:04 10/08/23 08:57 Polyethylene Glycol 3350 17 Gm Packet PO Not Given BID TESSY Simethicone 80 mg 10/06/23 14:40 10/08/23 09:00 Simethicone Chew 80 Mg Tablet PO 80 mg 0900,1300,1800,2100 PRN Administration Abdominal Pain Sodium Chloride 10 ml 10/05/23 09:00 10/08/23 04:31 Sodium Chloride Flush 0.9% 10 Ml Syringe IVP 10 ml 0100,0900,1700 TESSY Administration Sodium Chloride 10 ml 10/05/23 02:09 10/07/23 04:33 Sodium Chloride Flush 0.9% 10 Ml Syringe IVP 10 ml PRN PRN Administration NEEDED PER PROVIDER ORDERS - Lab Result Fish Bone Diagrams: 10/07/23 07:01 10/07/23 07:01 - Additional Planning My Orders: My Active Orders 10/08/23 08:00 Insulin Regular, Human [NovoLIN R FlexPen] 5 unit SUBQ TIDWM 10/08/23 09:00 cefTRIAXone [Rocephin] 2 gm Sodium Chloride 0.9% Minibag [Normal Saline 0.9% Minibag] 100 ml IV DAILY 10/08/23 12:00 metFORMIN [Glucophage] 500 mg PO BID Subjective - Subjective Patient Reports: Other Objective Vital Signs: Vital Signs - 24 hr 10/07/23 10/07/23 10/07/23 13:00 16:20 20:37 Temperature 37.7 C 36.4 C L 37.9 C Heart Rate [ 69 95 84 Brachial] Respiratory 20 20 18 Rate Blood Pressure Blood Pressure 96/59 L 163/81 H 136/64 H [Left Brachial artery] O2 Saturation 97 94 97 10/07/23 10/07/23 10/08/23 20:58 21:15 00:00 Temperature 37.3 C 36.2 C L Heart Rate [ 63 Brachial] Respiratory 20 Rate Blood Pressure 136/64 H Blood Pressure 113/46 L [Left Brachial artery] O2 Saturation 95 10/08/23 10/08/23 10/08/23 04:24 07:50 08:52 Temperature 36.7 C 37.7 C Heart Rate [ 75 76 Brachial] Respiratory 24 18 Rate Blood Pressure 138/65 H Blood Pressure 144/60 H 138/65 H [Left Brachial artery] O2 Saturation 96 97 Oxygen O2 Source Room air I&O (Last 24 Hrs): Intake and Output Totals x24h 10/06/23 10/07/23 10/08/23 23:59 23:59 23:59 Intake Total 2042 2594 1060 Output Total 550 80 20 Balance 1492 2514 1040 General: Alert, Oriented x3, No acute distress HEENT: Atraumatic Neck: No JVD, No thyromegaly Neuro: Alert, Non Focal Cardiovascular: Other Respiratory: Other Abdomen: Other - Results Results: Laboratory Results WBC 6.3 x10^3/uL (4.8-10.8) 10/07/23 07:01 RBC 3.23 10^6/uL (4.20-5.40) L 10/07/23 07:01 Hgb 8.6 g/dL (12.0-16.0) L 10/07/23 07:01 Hct 27.8 % (37.0-47.0) L 10/07/23 07:01 MCV 86.1 fL (81.0-99.0) 10/07/23 07:01 MCH 26.6 pg (27.0-31.0) L 10/07/23 07:01 MCHC 30.9 g/dL (32.0-36.0) L 10/07/23 07:01 RDW 14.8 % (12.0-15.0) 10/07/23 07:01 Plt Count 182 10^3/uL (130-450) 10/07/23 07:01 MPV 10.7 fL (7.9-10.8) 10/07/23 07:01 Neut # (Auto) 4.6 10^3/uL (1.5-6.6) 10/07/23 07:01 Lymph # (Auto) 1.1 10^3/uL (1.5-3.5) L 10/07/23 07:01 [place] # (Auto) 0.4 10^3/uL (0.0-1.0) 10/07/23 07:01 Eos # (Auto) 0.2 10^3/uL (0.0-0.7) 10/07/23 07:01 Baso # (Auto) 0.0 10^3/uL (0.0-0.1) 10/07/23 07:01 Absolute Nucleated RBC 0.00 x10^3/uL 10/07/23 07:01 Nucleated RBC % 0.0 /100WBC 10/07/23 07:01 Sodium 137 mmol/L (135-145) 10/07/23 07:01 Potassium 3.5 mmol/L (3.5-4.5) 10/07/23 07:01 Chloride 104 mmol/L (101-111) 10/07/23 07:01 Carbon Dioxide 28 mmol/L (21-32) 10/07/23 07:01 Anion Gap 5.0 (6-13) L 10/07/23 07:01 BUN 8 mg/dL (6-20) 10/07/23 07:01 Creatinine 0.6 mg/dL (0.6-1.3) 10/07/23 07:01 Estimated GFR (MDRD) 97 (>89) 10/07/23 07:01 Glucose 221 mg/dL (74-104) H 10/07/23 07:01 POC Whole Bld Glucose 235 mg/dL (70 - 100) H 10/08/23 11:02 Estimat Average Glucose 151 mg/dL (70-100) H 10/05/23 06:13 Hemoglobin A1c % 6.9 % (4.27-6.07) H 10/05/23 06:13 Lactic Acid 1.4 mmol/L (0.5-2.2) 10/04/23 16:20 Calcium 8.6 mg/dL (8.5-10.3) 10/07/23 07:01 Magnesium 1.6 mg/dL (1.7-2.3) L 10/06/23 05:17 Total Bilirubin 0.4 mg/dL (0.2-1.0) 10/07/23 07:01 AST 19 IU/L (10-42) 10/07/23 07:01 ALT 14 IU/L (10-60) 10/07/23 07:01 Alkaline Phosphatase 67 IU/L (42-121) 10/07/23 07:01 Total Protein 5.7 g/dL (6.4-8.9) L 10/07/23 07:01 Albumin 2.7 g/dL (3.2-5.5) L 10/07/23 07:01 Globulin 3.0 g/dL (2.1-4.2) 10/07/23 07:01 Albumin/Globulin Ratio 0.9 (1.0-2.2) L 10/07/23 07:01 Lipase < 10 U/L (11-82) L 10/04/23 16:05 Urine Color YELLOW 10/07/23 17:30 Urine Clarity CLEAR (CLEAR) 10/07/23 17:30 Urine pH 7.0 PH (5.0-7.5) 10/07/23 17:30 Ur Specific [place] 1.010 (1.002-1.030) 10/07/23 17:30 Urine Protein NEGATIVE mg/dL (NEGATIVE) 10/07/23 17:30 Urine Glucose (UA) NEGATIVE mg/dL (NEGATIVE) 10/07/23 17:30 Urine Ketones NEGATIVE mg/dL (NEGATIVE) 10/07/23 17:30 Urine Occult Blood NEGATIVE (NEGATIVE) 10/07/23 17:30 Urine Nitrite NEGATIVE (NEGATIVE) 10/07/23 17:30 Urine Bilirubin NEGATIVE (NEGATIVE) 10/07/23 17:30 Urine Urobilinogen 0.2 (NORMAL) E.U./dL (NORMAL) 10/07/23 17:30 Ur Leukocyte Esterase NEGATIVE (NEGATIVE) 10/07/23 17:30 Urine RBC None Seen /HPF (0-5) 10/07/23 17:30 Urine WBC 0-3 /HPF (0-5) 10/07/23 17:30 Ur Squamous Epith Cells FEW Squamous (<= Few) 10/07/23 17:30 Urine Bacteria None Seen /HPF (None Seen) 10/07/23 17:30 Ur Microscopic Review INDICATED 10/04/23 16:35 Urine Culture Comments NOT INDICATED 10/07/23 17:30 Nasal Adenovirus (PCR) NOT DETECTED 10/04/23 16:00 Nasal B. parapertussis DNA (PCR) NOT DETECTED 10/04/23 16:00 Nasal Coronavir 229E PCR NOT DETECTED 10/04/23 16:00 Nasal Coronavir HKU1 PCR NOT DETECTED 10/04/23 16:00 Nasal Coronavir NL63 PCR NOT DETECTED 10/04/23 16:00 Nasal Coronavir OC43 PCR NOT DETECTED 10/04/23 16:00 Nasal Enterovir/Rhinovir PCR NOT DETECTED 10/04/23 16:00 Nasal Influenza B PCR NOT DETECTED 10/04/23 16:00 Nasal Influenza A PCR NOT DETECTED 10/04/23 16:00 Nasal Parainfluen 1 PCR NOT DETECTED 10/04/23 16:00 Nasal Parainfluen 2 PCR NOT DETECTED 10/04/23 16:00 Nasal Parainfluen 3 PCR NOT DETECTED 10/04/23 16:00 Nasal Parainfluen 4 PCR NOT DETECTED 10/04/23 16:00 Nasal RSV (PCR) NOT DETECTED 10/04/23 16:00 Nasal B.pertussis DNA PCR NOT DETECTED 10/04/23 16:00 Nasal C.pneumoniae (PCR) NOT DETECTED 10/04/23 16:00 [place] Human Metapneumo PCR NOT DETECTED 10/04/23 16:00 Nasal M.pneumoniae (PCR) NOT DETECTED 10/04/23 16:00 Nasal SARS-CoV-2 (PCR) NOT DETECTED 10/04/23 16:00 Sepsis Event Note (H) - Evaluation Current Stage of Sepsis: Sepsis Possible source of Sepsis: positive: GI tract/intra-abdominal - Sepsis Criteria Sepsis Criteria: Recorded Temperature greater than 38.3C or Less than 36C, Recorded Heart Rate greater than 90 bpm, WBC count greater than 12,000 or less than 4000
[2023-10-08] MEDS: metFORMIN 500 MG TABLET PO SCH (12:00)
[2023-10-08] MEDS: AMOX/CLAV 875 MG/125 MG TABLET PO SCH (20:28)
[2023-10-09 08:24] LABS: HCT - HEMATOCRIT 29.9 % (37.0-47.0); MEAN CORPUSCULAR HEMOGLOBIN 25.9 pg (27.0-31.0); MEAN CORPUSCULAR HGB CONC 30.1 g/dL (32.0-36.0); MEAN CORPUSCULAR VOLUME 86.2 fL (81.0-99.0); MEAN PLATELET VOLUME 10.3 fL (7.9-10.8); RED BLOOD COUNT 3.47 10^6/uL (4.20-5.40); RED CELL DISTRIBUTION WIDTH 15.2 % (12.0-15.0); WHITE BLOOD COUNT 6.6 x10^3/uL (4.8-10.8)
--- NOTE | 2023-10-09 14:16 | PROVIDER PROGRESS NOTE ---
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 Serum glucose has improved to the 160- 190 range. Continue regular insulin 5 units three times a day with meals. Continue metformin 500 mg twice daily. Goal is serum glucose range of 80-180. Continue diabetic diet. A1C on admission 6.9. Recommend initiating outpatient regiment with NPH insulin, sliding scale and metformin as an outpatient. Qualifiers: Diabetes mellitus group home insulin use: with group home use Diabetes mellitus complication status: without complication Qualified Code(s): E11.9 - Type 2 diabetes mellitus without complications; Z79.4 - intermediate (current) use of insulin (2) Chronic pain Conclusion/Plan: Pt on oxycodone at home due to chronic pelvic pain Continue oxycodone. (3) Acute cholecystitis Conclusion/Plan: Patient presented with recurrent episode of acute cholecystitis found to have gangrenous gallbladder Post op day #4 subtotal Laparoscopic cholecystectomy Management as per general surgery (4) E coli bacteremia Conclusion/Plan: Likely secondary to gangrenous cholecystitis Patient appears nontoxic Vital signs stable Continue Augmentin per surgery. (5) HLD (hyperlipidemia) Conclusion/Plan: Stable Resume statin (6) HTN (hypertension) Conclusion/Plan: Continue metoprolol 25 mg twice daily. - Current Meds Current Meds: Current Medications Generic Name Dose Route Start Last Admin Trade Name [place]ory PRN Reason Stop Dose Admin Acetaminophen 650 mg 10/06/23 09:00 10/09/23 12:48 Acetaminophen 325 Mg Tablet PO 650 mg Q4HR TESSY Administration Amoxicillin/Clavulanate Potassium 1 tab 10/08/23 21:00 10/09/23 08:15 Amox/Clav 875 Mg/125 Mg Tablet PO 1 tab BID TESSY Administration Atorvastatin Calcium 10 mg 10/05/23 21:00 10/08/23 20:28 Atorvastatin 10 Mg Tablet PO Not Given QPM TESSY Cholecalciferol 25 mcg 10/06/23 09:00 10/09/23 08:21 Cholecalciferol 25 Mcg Tablet PO 25 mcg DAILY TESSY Administration Dicyclomine HCl 10 mg 10/06/23 07:47 10/06/23 12:05 Dicyclomine 10 Mg Capsule PO 10 mg QID PRN Administration Abdominal Pain Docusate Sodium 200 mg 10/05/23 18:00 10/09/23 08:21 Docusate Sodium 100 Mg Capsule PO 200 mg DAILY [facility] Administration Famotidine 20 mg 10/06/23 09:00 10/09/23 08:15 Famotidine 20 Mg Tablet PO 20 mg DAILY [facility] Administration Heparin Sodium (Porcine) 5,000 unit 10/05/23 14:00 10/09/23 13:59 Heparin 5,000 Unit/Ml Vial SUBQ Not Given TID [facility] Insulin Human Lispro 3 - 11 unit 10/07/23 17:00 10/09/23 11:48 Insulin Lispro 300 Unit/3 Ml Pen SUBQ 5 unit 0800,1200,1700,2100 [facility] Administration Protocol Insulin Human Regular 5 unit 10/08/23 08:00 10/09/23 11:48 Insulin Regular, Human 300 Unit/3 Ml Pen SUBQ 5 unit TIDWM [facility] Administration Magnesium Oxide 800 mg 10/07/23 08:00 10/09/23 08:15 Magnesium Oxide 400 Mg Tablet PO 800 mg DAILYWM [facility] Administration Metformin HCl 500 mg 10/08/23 12:00 10/09/23 08:15 Metformin 500 Mg Tablet PO 500 mg BID [facility] Administration Metoclopramide HCl 10 mg 10/06/23 14:40 10/09/23 10:33 Metoclopramide 10 Mg Tablet PO 10 mg Q6H PRN Administration Nausea / Vomiting Naproxen 250 mg 10/06/23 08:56 10/09/23 10:33 Naproxen 250 Mg Tablet PO 250 mg TID PRN Administration Moderate Pain (Level 4-6) Ondansetron HCl 4 mg 10/05/23 02:34 10/08/23 21:21 Ondansetron 4 Mg/2 Ml Vial IVP 4 mg Q6H PRN Administration Nausea / Vomiting Oxycodone HCl 5 mg 10/06/23 12:00 10/09/23 11:48 Oxycodone 5 Mg Tablet PO 5 mg Q4H TESSY Administration Oxycodone HCl 5 mg 10/06/23 08:54 10/09/23 04:14 Oxycodone 5 Mg Tablet PO 5 mg Q4HR PRN Administration Severe Pain (Level 7-10) Polyethylene Glycol 17 gm 10/05/23 11:04 10/09/23 08:21 Polyethylene Glycol 3350 17 Gm Packet PO Not Given BID TESSY Simethicone 80 mg 10/06/23 14:40 10/08/23 17:27 Simethicone Chew 80 Mg Tablet PO 80 mg 0900,1300,1800,2100 PRN Administration Abdominal Pain Sodium Chloride 10 ml 10/05/23 09:00 10/09/23 08:21 Sodium Chloride Flush 0.9% 10 Ml Syringe IVP 10 ml 0100,0900,1700 TESSY Administration Sodium Chloride 10 ml 10/05/23 02:09 10/07/23 04:33 Sodium Chloride Flush 0.9% 10 Ml Syringe IVP 10 ml PRN PRN Administration NEEDED PER PROVIDER ORDERS - Lab Result Fish Bone Diagrams: 10/09/23 08:17 10/07/23 07:01 Subjective - Subjective Patient Reports: Other (Alert. Denies chest pain, shortness of breath. Continues to complain of right upper quadrant abdominal pain with palpation but improved.) Objective Vital Signs: Vital Signs - 24 hr 10/08/23 10/08/23 10/08/23 15:29 20:29 21:00 Temperature 36.5 C 38.7 C H Heart Rate [ 74 81 Brachial] Respiratory 16 20 Rate Blood Pressure 143/63 H Blood Pressure 130/49 L [Left Brachial artery] Blood Pressure [Right Brachial artery] Blood Pressure 143/63 H [Right Radial] O2 Saturation 94 97 10/08/23 10/08/23 10/08/23 21:26 22:43 23:44 Temperature 38.5 C H 37.5 C 37.8 C Heart Rate [ Brachial] Respiratory Rate Blood Pressure Blood Pressure [Left Brachial artery] Blood Pressure [Right Brachial artery] Blood Pressure [Right Radial] O2 Saturation 10/09/23 10/09/23 10/09/23 00:00 02:57 04:05 Temperature 37.8 C 38.0 C H Heart Rate [ 75 76 Brachial] Respiratory 18 16 Rate Blood Pressure Blood Pressure 120/45 L 120/55 L [Left Brachial artery] Blood Pressure [Right Brachial artery] Blood Pressure [Right Radial] O2 Saturation 96 92 10/09/23 10/09/23 10/09/23 06:50 07:49 08:21 Temperature 37.5 C 36.6 C Heart Rate [ 75 Brachial] Respiratory 20 Rate Blood Pressure 129/58 L Blood Pressure [Left Brachial artery] Blood Pressure 129/58 L [Right Brachial artery] Blood Pressure [Right Radial] O2 Saturation 94 10/09/23 12:12 Temperature 36.3 C L Heart Rate [ 65 Brachial] Respiratory 20 Rate Blood Pressure Blood Pressure [Left Brachial artery] Blood Pressure 132/60 H [Right Brachial artery] Blood Pressure [Right Radial] O2 Saturation 92 Oxygen O2 Source Room air I&O (Last 24 Hrs): Intake and Output Totals x24h 10/07/23 10/08/23 10/09/23 23:59 23:59 23:59 Intake Total 2594 1840 440 Output Total 80 100 70 Balance 2514 1740 370 General: Alert, No acute distress HEENT: Atraumatic Neck: Supple, No JVD Neuro: Alert, Non Focal Cardiovascular: Other (Positive S1-S2 no extra heart sounds.) Respiratory: Other (Good air exchange in all lung jay no wheezing no crackles.) Abdomen: Other (soft, mild tenderness on palpation in the right upper quadrant. + bowel sounds.) Extremities: No cyanosis, No edema Skin: No rashes - Results Results: Laboratory Results WBC 6.6 x10^3/uL (4.8-10.8) 10/09/23 08:17 RBC 3.47 10^6/uL (4.20-5.40) L 10/09/23 08:17 Hgb 9.0 g/dL (12.0-16.0) L 10/09/23 08:17 Hct 29.9 % (37.0-47.0) L 10/09/23 08:17 MCV 86.2 fL (81.0-99.0) 10/09/23 08:17 MCH 25.9 pg (27.0-31.0) L 10/09/23 08:17 MCHC 30.1 g/dL (32.0-36.0) L 10/09/23 08:17 RDW 15.2 % (12.0-15.0) H 10/09/23 08:17 Plt Count 265 10^3/uL (130-450) 10/09/23 08:17 MPV 10.3 fL (7.9-10.8) 10/09/23 08:17 Neut # (Auto) 4.6 10^3/uL (1.5-6.6) 10/07/23 07:01 Lymph # (Auto) 1.1 10^3/uL (1.5-3.5) L 10/07/23 07:01 [place] # (Auto) 0.4 10^3/uL (0.0-1.0) 10/07/23 07:01 Eos # (Auto) 0.2 10^3/uL (0.0-0.7) 10/07/23 07:01 Baso # (Auto) 0.0 10^3/uL (0.0-0.1) 10/07/23 07:01 Absolute Nucleated RBC 0.00 x10^3/uL 10/07/23 07:01 Nucleated RBC % 0.0 /100WBC 10/07/23 07:01 Sodium 137 mmol/L (135-145) 10/07/23 07:01 Potassium 3.5 mmol/L (3.5-4.5) 10/07/23 07:01 Chloride 104 mmol/L (101-111) 10/07/23 07:01 Carbon Dioxide 28 mmol/L (21-32) 10/07/23 07:01 Anion Gap 5.0 (6-13) L 10/07/23 07:01 BUN 8 mg/dL (6-20) 10/07/23 07:01 Creatinine 0.6 mg/dL (0.6-1.3) 10/07/23 07:01 Estimated GFR (MDRD) 97 (>89) 10/07/23 07:01 Glucose 221 mg/dL (74-104) H 10/07/23 07:01 POC Whole Bld Glucose 192 mg/dL (70 - 100) H 10/09/23 10:59 Estimat Average Glucose 151 mg/dL (70-100) H 10/05/23 06:13 Hemoglobin A1c % 6.9 % (4.27-6.07) H 10/05/23 06:13 Lactic Acid 1.4 mmol/L (0.5-2.2) 10/04/23 16:20 Calcium 8.6 mg/dL (8.5-10.3) 10/07/23 07:01 Magnesium 1.6 mg/dL (1.7-2.3) L 10/06/23 05:17 Total Bilirubin 0.4 mg/dL (0.2-1.0) 10/07/23 07:01 AST 19 IU/L (10-42) 10/07/23 07:01 ALT 14 IU/L (10-60) 10/07/23 07:01 Alkaline Phosphatase 67 IU/L (42-121) 10/07/23 07:01 Total Protein 5.7 g/dL (6.4-8.9) L 10/07/23 07:01 Albumin 2.7 g/dL (3.2-5.5) L 10/07/23 07:01 Globulin 3.0 g/dL (2.1-4.2) 10/07/23 07:01 Albumin/Globulin Ratio 0.9 (1.0-2.2) L 10/07/23 07:01 Lipase < 10 U/L (11-82) L 10/04/23 16:05 Urine Color YELLOW 10/07/23 17:30 Urine Clarity CLEAR (CLEAR) 10/07/23 17:30 Urine pH 7.0 PH (5.0-7.5) 10/07/23 17:30 Ur Specific [place] 1.010 (1.002-1.030) 10/07/23 17:30 Urine Protein NEGATIVE mg/dL (NEGATIVE) 10/07/23 17:30 Urine Glucose (UA) NEGATIVE mg/dL (NEGATIVE) 10/07/23 17:30 Urine Ketones NEGATIVE mg/dL (NEGATIVE) 10/07/23 17:30 Urine Occult Blood NEGATIVE (NEGATIVE) 10/07/23 17:30 Urine Nitrite NEGATIVE (NEGATIVE) 10/07/23 17:30 Urine Bilirubin NEGATIVE (NEGATIVE) 10/07/23 17:30 Urine Urobilinogen 0.2 (NORMAL) E.U./dL (NORMAL) 10/07/23 17:30 Ur Leukocyte Esterase NEGATIVE (NEGATIVE) 10/07/23 17:30 Urine RBC None Seen /HPF (0-5) 10/07/23 17:30 Urine WBC 0-3 /HPF (0-5) 10/07/23 17:30 Ur Squamous Epith Cells FEW Squamous (<= Few) 10/07/23 17:30 Urine Bacteria None Seen /HPF (None Seen) 10/07/23 17:30 Ur Microscopic Review INDICATED 10/04/23 16:35 Urine Culture Comments NOT INDICATED 10/07/23 17:30 Nasal Adenovirus (PCR) NOT DETECTED 10/04/23 16:00 Nasal B. parapertussis DNA (PCR) NOT DETECTED 10/04/23 16:00 Nasal Coronavir 229E PCR NOT DETECTED 10/04/23 16:00 Nasal Coronavir HKU1 PCR NOT DETECTED 10/04/23 16:00 Nasal Coronavir NL63 PCR NOT DETECTED 10/04/23 16:00 Nasal Coronavir OC43 PCR NOT DETECTED 10/04/23 16:00 Nasal Enterovir/Rhinovir PCR NOT DETECTED 10/04/23 16:00 Nasal Influenza B PCR NOT DETECTED 10/04/23 16:00 Nasal Influenza A PCR NOT DETECTED 10/04/23 16:00 Nasal Parainfluen 1 PCR NOT DETECTED 10/04/23 16:00 Nasal Parainfluen 2 PCR NOT DETECTED 10/04/23 16:00 Nasal Parainfluen 3 PCR NOT DETECTED 10/04/23 16:00 Nasal Parainfluen 4 PCR NOT DETECTED 10/04/23 16:00 Nasal RSV (PCR) NOT DETECTED 10/04/23 16:00 Nasal B.pertussis DNA PCR NOT DETECTED 10/04/23 16:00 Nasal C.pneumoniae (PCR) NOT DETECTED 10/04/23 16:00 [place] Human Metapneumo PCR NOT DETECTED 10/04/23 16:00 Nasal M.pneumoniae (PCR) NOT DETECTED 10/04/23 16:00 Nasal SARS-CoV-2 (PCR) NOT DETECTED 10/04/23 16:00 Sepsis Event Note (H) - Evaluation Current Stage of Sepsis: Sepsis Possible source of Sepsis: positive: GI tract/intra-abdominal - Sepsis Criteria Sepsis Criteria: Recorded Temperature greater than 38.3C or Less than 36C, Recorded Heart Rate greater than 90 bpm, WBC count greater than 12,000 or less than 4000
--- NOTE | 2023-10-09 16:04 | PROVIDER PROGRESS NOTE ---
Subjective - Subjective Pt reports feeling: Improved (tolerating light diet. denies nausea or bloating) Objective - Vital Signs/Intake & Output Vital Signs: Vital Signs x48h Temp Pulse Resp BP BP Pulse Ox 10/09/23 12:12 36.3 C L 65 20 132/60 H 92 10/09/23 08:21 129/58 L Intake & Output: Intake & Output 10/06/23 10/07/23 10/08/23 10/09/23 23:59 23:59 23:59 23:59 Intake Total 2042 2594 1840 440 Output Total 550 80 100 70 Balance 1492 2514 1740 370 - Objective General Appearance: positive: No acute distress, Alert Eyes Bilateral: positive: PERRL, EOMI ENT: positive: No signs of dehydration Neck: positive: No JVD Respiratory: positive: No respiratory distress Abdomen: positive: Non-tender, No distention, Other (george thin bilious) Neurologic/Psychiatric: positive: Oriented x3 - Lab Results Fish Bones: 10/09/23 08:17 10/07/23 07:01 Other Labs: Lab Results x24hrs 10/09/23 10/09/23 10/09/23 Range/Units 10:59 08:17 07:34 WBC 6.6 (4.8-10.8) x10^3/uL RBC 3.47 L (4.20-5.40) 10^6/uL Hgb 9.0 L (12.0-16.0) g/dL Hct 29.9 L (37.0-47.0) % MCV 86.2 (81.0-99.0) fL MCH 25.9 L (27.0-31.0) pg MCHC 30.1 L (32.0-36.0) g/dL RDW 15.2 H (12.0-15.0) % Plt Count 265 (130-450) 10^3/uL MPV 10.3 (7.9-10.8) fL POC Whole Bld Glucose 192 H 169 H (70 - 100) mg/dL 10/08/23 10/08/23 10/05/23 Range/Units 20:42 16:48 02:27 WBC (4.8-10.8) x10^3/uL RBC (4.20-5.40) 10^6/uL Hgb (12.0-16.0) g/dL Hct (37.0-47.0) % MCV (81.0-99.0) fL MCH (27.0-31.0) pg MCHC (32.0-36.0) g/dL RDW (12.0-15.0) % Plt Count (130-450) 10^3/uL MPV (7.9-10.8) fL POC Whole Bld Glucose 164 H 181 H 242 H (70 - 100) mg/dL Sepsis Event Note (H) - Evaluation Current Stage of Sepsis: Sepsis Possible source of Sepsis: positive: GI tract/intra-abdominal - Sepsis Criteria Sepsis Criteria: Recorded Temperature greater than 38.3C or Less than 36C, Recorded Heart Rate greater than 90 bpm, WBC count greater than 12,000 or less than 4000 Assessment/Plan - Problem List (1) Acute cholecystitis Impression: doing well. has bilious drainage. we discussed drain needs to stay in place as long as fluid is draining out. we also discussed further care at might be necessary. she has seen GI and interventional radiology at the [facility] home tomorrow with drain.
[2023-10-09] MEDS: PHENAZOPYRIDINE 100 MG TABLET PO PRN (18:10)
[2023-10-09] MEDS: METOPROLOL TARTRATE 25 MG TABLET PO SCH (20:33)
--- NOTE | 2023-10-10 14:52 | Discharge Plan ---
Discharge Plan Problem Reviewed?: Yes Disposition: Home, Self Care Condition: Good Prescriptions: oxyCODONE [Roxicodone] 5 mg PO Q6HR PRN #30 tablet PRN Reason: Abdominal Pain Amox/Clav 875/125 [Augmentin 875/125 Tab] 1 tablet PO Q12H 6 Days #12 tablet oxyCODONE [Roxicodone] 5 - 10 mg PO Q4H PRN #35 tablet PRN Reason: Pain Diet: Regular Shower Restrictions: No Driving Restrictions: Yes (no driving while taking prescription pain pills) Health Concerns: recent cholecystitis and surgery with drain placement Plan of Treatment: as above. partial cholecystectomy with drain placement Assessment: doing well. much improved. admitted with cholecystitis and ecoli bactermia. Additional Instructions or Follow Up instructions: call the office with any concerns and call to make a follow up appointment [phone] No Smoking: If you smoke, Please STOP! Call for help.
--- NOTE | 2023-10-10 14:55 | DISCHARGE SUMMARY ---
"Discharge Summary Admit Date: 10/04/23 Discharge Date: 10/10/23 Code Status: Attempt Resuscitation Condition at Discharge: Good Discharge Disposition: 01 Home, Self Care Discharge [facility] Name: [facility] - DIAGNOSES Admission Diagnoses: cholecystitis with ecoli bacteremia Discharge Diagnoses with Status of Each Condition: home in good condition. tolerating diet, afebrile, normal wbc - HPI History of Present Illness: subtotal cholecystectomy with drain placement and antibiotics. doing very wel on 10/10/2023 - CONSULTS | PROCEDURES Procedures: as above - ALLERGIES Allergies/Adverse Reactions: Allergies Allergy/AdvReac Type Severity Reaction Status Date / Time Cephalosporins Allergy Rash Verified 10/04/23 15:41 codeine Allergy Itching Verified 10/04/23 15:41 colchicine Allergy Rash Verified 10/04/23 15:41 hydromorphone Allergy Unknown Verified 10/04/23 15:41 insulin glargine Allergy Hives Verified 10/05/23 23:03 [From Lantus U-100 Insulin] monosodium glutamate Allergy Unknown Verified 10/06/23 14:51 Penicillins Allergy Hives Verified 10/08/23 15:45 Sulfa (Sulfonamide Allergy Anaphylaxis Verified 10/04/23 15:41 Antibiotics) tuberculin,PPD,multi-puncture Allergy Unknown Verified 10/04/23 15:41 vancomycin Allergy Itching Verified 10/04/23 15:41 adhesive tape AdvReac Intermediate Irritation Verified 10/04/23 15:41 (Paper tape OK) allopurinol AdvReac Rash Verified 10/04/23 15:41 aspartame AdvReac Respiratory Verified 10/04/23 15:41 broccoli AdvReac Unknown Verified 10/04/23 15:41 gabapentin AdvReac Unknown Verified 10/04/23 15:41 calcium silicate Allergy Unknown Uncoded 10/04/23 15:41 - MEDICATIONS Home Medications: Ambulatory Orders Medication Instructions Recorded Confirmed Insulin NPH Human Isophane 8 - 10 unit BID 02/14/15 10/05/23 [Humulin N] Metoprolol Tartrate 25 mg BID 02/14/15 10/04/23 Multivitamin [Multivitamins] 1 tab DAILY 02/14/15 10/04/23 Tumeric 500 mg PO DAILY 02/14/15 10/04/23 metFORMIN [Glucophage] 500 mg BID 02/14/15 10/04/23 oxyCODONE [Roxicodone] 10 mg PO BID 02/14/15 10/04/23 Cholecalciferol [Vitamin D3] 25 mcg PO DAILY 03/05/20 10/05/23 Melatonin/Pyridoxine [Melatonin 5 1 tab PO DAILY 03/05/20 10/04/23 mg Tablet] Naproxen Sodium [Aleve] 220 mg PO HS 03/05/20 10/04/23 Rosuvastatin Calcium [Crestor] 5 tab PO HS 03/05/20 10/04/23 Dicyclomine [Bentyl] 10 mg PO QID PRN #20 cap 10/02/23 10/04/23 Famotidine [Pepcid] 20 mg PO DAILY #20 tablet 10/02/23 10/04/23 Magnesium Oxide [Magnesium] 400 mg PO DAILY 10/04/23 10/05/23 Metoclopramide [Reglan] 10 mg PO DAILY 10/05/23 10/05/23 estradioL vaginal [Estrace vaginal] 1 g TOP OAW 10/05/23 10/05/23 Amox/Clav 875/125 [Augmentin 1 tablet PO Q12H 6 Days #12 tablet 10/09/23 875/125 Tab] oxyCODONE [Roxicodone] 5 - 10 mg PO Q4H PRN #35 tablet 10/09/23 oxyCODONE [Roxicodone] 5 mg PO Q6HR PRN #30 tablet 10/10/23 - PHYSICAL EXAM AT DISCHARGE General Appearance: positive: No acute distress, Alert Eyes Bilateral: positive: PERRL, EOMI, No scleral icterus ENT: positive: No signs of dehydration Neck: positive: No JVD, Trachea midline Respiratory: positive: No respiratory distress Abdomen: positive: Non-tender, No distention, Other (incisions c/d/i. no erythema. george thin clean bilious) - LABS Result Diagrams: 10/09/23 08:17 10/07/23 07:01 - SEPSIS Current Stage of Sepsis: Sepsis Possible source of Sepsis: GI tract/intra-abdominal Sepsis Criteria: Recorded Temperature greater than 38.3C or Less than 36C, Recorded Heart Rate greater than 90 bpm, WBC count greater than 12,000 or less than 4000 - FOLLOW UP Follow Up: call the surgery office for an appointment [phone]"
[2023-10-10 15:24] VITALS: BP 136/57; O2SAT 95
== END 2023-10-10 16:20 | disposition home or self-care (01) | DRG 872 ==
LOC: ED 15:36 → SDS 22:53 → ED 22:53 → SDS 10-05 02:08 → MS2 10-05 02:09 → OBSVTOIN 10-06 13:12
PROVIDERS: ADMIT Surgery; ATTEND Surgery
PROC: 0FT44ZZ Resection of Gallbladder, Percutaneous Endoscopic Approach (ICD-10-PCS; principal; 2023-10-04 22:00)
DX: A41.9 Sepsis, unspecified organism (principal); K81.2 Acute cholecystitis with chronic cholecystitis; K66.0 Peritoneal adhesions (postprocedural) (postinfection); K82.A1 Gangrene of gallbladder in cholecystitis; K82.1 Hydrops of gallbladder; C85.90 Non-Hodgkin lymphoma, unspecified, unspecified site; J45.909 Unspecified asthma, uncomplicated; E11.9 Type 2 diabetes mellitus without complications; R11.0 Nausea; E78.00 Pure hypercholesterolemia, unspecified; G47.30 Sleep apnea, unspecified; M10.9 Gout, unspecified; G89.29 Other chronic pain; E78.5 Hyperlipidemia, unspecified; R10.2 Pelvic and perineal pain; I10 Essential (primary) hypertension; Z20.818 Contact with and (suspected) exposure to other bacterial communicable diseases; Z20.822 Contact with and (suspected) exposure to COVID-19; Z20.828 Contact with and (suspected) exposure to other viral communicable diseases; E87.6 Hypokalemia; E83.42 Hypomagnesemia; G47.33 Obstructive sleep apnea (adult) (pediatric); Z88.6 Allergy status to analgesic agent; Z88.8 Allergy status to other drugs, medicaments and biological substances; E66.9 Obesity, unspecified; K59.00 Constipation, unspecified; Z68.37 Body mass index [BMI] 37.0-37.9, adult; Z79.4 Long term (current) use of insulin; Z79.84 Long term (current) use of oral hypoglycemic drugs; Z79.899 Other long term (current) drug therapy; Z87.11 Personal history of peptic ulcer disease; Z88.0 Allergy status to penicillin; Z88.1 Allergy status to other antibiotic agents; Z88.2 Allergy status to sulfonamides; Z88.5 Allergy status to narcotic agent; Z90.49 Acquired absence of other specified parts of digestive tract
CPT/HCPCS: 36415; 47562; 71045; 71046; 74018; 74181; 76705; 80053; 81001; 83036; 83605; 83690; 83735; 85025; 85027; 87040; 87154; 87181; 87633; 94640; 97161; 97166; 97530; A9270; J0131; J1170; J1815; J7120; 81003; 87086; 96365; 96375; 96376; 99285; Q9966

== ENCOUNTER 2023-11-13 15:14 | Outpatient (CLI) | payer MEDICARE, OTHER ==
[2023-11-13 15:23] LABS: BASOPHILS # (AUTO) 0.1 10^3/uL (0.0-0.1); BASOPHILS % (AUTO) 0.5 %; EOSINOPHILS # (AUTO) 0.4 10^3/uL (0.0-0.7); EOSINOPHILS % (AUTO) 4.2 %; HCT - HEMATOCRIT 32.6 % (37.0-47.0); HGB - HEMOGLOBIN 9.7 g/dL (12.0-16.0); LYMPHOCYTES # (AUTO) 3.4 10^3/uL (1.5-3.5); LYMPHOCYTES % (AUTO) 36.8 %; MEAN CORPUSCULAR HEMOGLOBIN 24.3 pg (27.0-31.0); MEAN CORPUSCULAR HGB CONC 29.8 g/dL (32.0-36.0); MEAN CORPUSCULAR VOLUME 81.7 fL (81.0-99.0); MEAN PLATELET VOLUME 9.7 fL (7.9-10.8); MONOCYTES # (AUTO) 0.6 10^3/uL (0.0-1.0); MONOCYTES % (AUTO) 6.7 %; NEUTROPHILS # (AUTO) 4.7 10^3/uL (1.5-6.6); NEUTROPHILS % (AUTO) 51.6 %; PLT - PLATELET COUNT 322 10^3/uL (130-450); RED BLOOD COUNT 3.99 10^6/uL (4.20-5.40); RED CELL DISTRIBUTION WIDTH 14.5 % (12.0-15.0); WHITE BLOOD COUNT 9.1 x10^3/uL (4.8-10.8)
[2023-11-13 15:43] LABS: BILIRUBIN,TOTAL 0.3 mg/dL (0.2-1.0); CALCIUM 9.9 mg/dL (8.5-10.3); POTASSIUM 4.2 mmol/L (3.5-4.5)
[2023-11-13 15:44] LABS: CREATININE 0.7 mg/dL (0.6-1.3)
== END 2023-11-13 15:15 | disposition home or self-care (01) ==
LOC: LAB 15:14
PROVIDERS: ATTEND Surgery
DX: K91.89 Other postprocedural complications and disorders of digestive system (principal); A04.72 Enterocolitis due to Clostridium difficile, not specified as recurrent
CPT/HCPCS: 36415; 80053; 85025; 87493

== ENCOUNTER 2023-12-15 08:00 | Outpatient (CLI) | payer MEDICARE, OTHER ==
[2023-12-15 15:40] LABS: BASOPHILS % (AUTO) 0.6 %; EOSINOPHILS # (AUTO) 0.2 10^3/uL (0.0-0.7); EOSINOPHILS % (AUTO) 2.5 %; HCT - HEMATOCRIT 33.4 % (37.0-47.0); HGB - HEMOGLOBIN 9.8 g/dL (12.0-16.0); LYMPHOCYTES # (AUTO) 2.4 10^3/uL (1.5-3.5); LYMPHOCYTES % (AUTO) 35.5 %; MEAN CORPUSCULAR HEMOGLOBIN 23.4 pg (27.0-31.0); MEAN CORPUSCULAR HGB CONC 29.3 g/dL (32.0-36.0); MEAN CORPUSCULAR VOLUME 79.9 fL (81.0-99.0); MONOCYTES # (AUTO) 0.5 10^3/uL (0.0-1.0); MONOCYTES % (AUTO) 7.8 %; NEUTROPHILS # (AUTO) 3.6 10^3/uL (1.5-6.6); NEUTROPHILS % (AUTO) 53.3 %; PLT - PLATELET COUNT 301 10^3/uL (130-450); RED BLOOD COUNT 4.18 10^6/uL (4.20-5.40); RED CELL DISTRIBUTION WIDTH 15.4 % (12.0-15.0); WHITE BLOOD COUNT 6.8 x10^3/uL (4.8-10.8)
[2023-12-15 16:43] LABS: ALBUMIN 3.8 g/dL (3.2-5.5); BILIRUBIN,TOTAL 0.2 mg/dL (0.2-1.0); CALCIUM 9.4 mg/dL (8.5-10.3); CREATININE 0.6 mg/dL (0.6-1.3); POTASSIUM 4.5 mmol/L (3.5-4.5); TOTAL PROTEIN 7.5 g/dL (6.4-8.9)
[2023-12-15 16:44] LABS: FERRITIN 9.1 ng/mL (11.0-306.8)
[2023-12-15 18:28] LABS: ESTIMATED AVERAGE GLUCOSE 169 mg/dL (70-100); HEMOGLOBIN A1c% 7.5 % (4.27-6.07)
== END 2023-12-15 23:59 | disposition home or self-care (01) ==
LOC: LAB 08:00
PROVIDERS: ATTEND Internal Medicine
DX: K91.89 Other postprocedural complications and disorders of digestive system (principal); E86.0 Dehydration; E11.9 Type 2 diabetes mellitus without complications; E61.1 Iron deficiency
CPT/HCPCS: 36415; 80053; 82728; 83036; 83540; 84466; 85025

== ENCOUNTER 2024-01-13 13:46 | Outpatient (CLI) | payer MEDICARE, OTHER ==
[2024-01-13 14:04] LABS: BASOPHILS % (AUTO) 0.5 %; EOSINOPHILS # (AUTO) 0.2 10^3/uL (0.0-0.7); EOSINOPHILS % (AUTO) 1.9 %; HGB - HEMOGLOBIN 11.4 g/dL (12.0-16.0); LYMPHOCYTES # (AUTO) 2.6 10^3/uL (1.5-3.5); LYMPHOCYTES % (AUTO) 33.1 %; MEAN CORPUSCULAR HEMOGLOBIN 24.5 pg (27.0-31.0); MEAN CORPUSCULAR VOLUME 81.5 fL (81.0-99.0); MEAN PLATELET VOLUME 10.3 fL (7.9-10.8); MONOCYTES # (AUTO) 0.6 10^3/uL (0.0-1.0); MONOCYTES % (AUTO) 7.7 %; NEUTROPHILS # (AUTO) 4.4 10^3/uL (1.5-6.6); NEUTROPHILS % (AUTO) 56.4 %; PLT - PLATELET COUNT 207 10^3/uL (130-450); RED BLOOD COUNT 4.66 10^6/uL (4.20-5.40); RED CELL DISTRIBUTION WIDTH 21.1 % (12.0-15.0); WHITE BLOOD COUNT 7.8 x10^3/uL (4.8-10.8)
== END 2024-01-13 13:47 | disposition home or self-care (01) ==
LOC: LAB 13:46
PROVIDERS: ATTEND Internal Medicine
DX: D50.9 Iron deficiency anemia, unspecified (principal); Z83.2 Family history of diseases of the blood and blood-forming organs and certain disorders involving the immune mechanism
CPT/HCPCS: 36415; 81241; 82728; 83540; 84466; 85025